=== PATIENT | female | born 1950 | race Caucasian/White ===

== ENCOUNTER 2020-10-07 10:39 | Outpatient (CLI) | payer MEDICARE, SELFPAY | END 2020-10-07 10:40 | disposition home or self-care (01) | PROVIDERS: PCP Internal Medicine; Visit Provider Otolaryngology | DX: H69.81 Other specified disorders of Eustachian tube, right ear (principal); H93.13 Tinnitus, bilateral; H90.3 Sensorineural hearing loss, bilateral | CPT/HCPCS: 92557; 92567 ==

== ENCOUNTER 2021-02-11 20:40 | Emergency (ER) | payer MEDICARE, SELFPAY ==
--- NOTE | ~2021-02-11 | XR_ITS ---
XR chest 2V DATE: 02/11/2021 21:23 INDICATION: Midsternal chest pain TECHNIQUE: PA and lateral views COMPARISON: None FINDINGS: Borderline heart size. Aortic unfolding. No hilar or mediastinal enlargement. No pulmonary infiltrate or consolidation, pleural effusion or pulmonary vascular congestion or pneumo thorax. 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 Diffuse osteopenia. Degenerative change of the thoracic spine. IMPRESSION: No active pulmonary disease Reviewed, dictated and finalized at location A. IMPRESSION: No active pulmonary disease
[2021-02-11 20:57] VITALS: BP 133/88; PULSE 98; RESP 18; TEMP 37.3; O2SAT 96
--- NOTE | 2021-02-11 21:04 | ECG_ITS ---
Measurements Intervals [place] Rate: 95 P: 27 [place]: 153 QRS: -18 QRSD: 91 T: 76 QT: 354 QTc: 447 Interpretive Statements SINUS RHYTHM POSSIBLE LEFT ATRIAL ENLARGEMENT LOW QRS VOLTAGE IN PRECORDIAL LEADS BORDERLINE R WAVE PROGRESSION, ANTERIOR LEADS BORDERLINE T WAVE ABNORMALITY- LATERAL LEADS BORDERLINE ECG Electronically Signed On 02-12-2021 8:24:46 CDT by Johnathan Tang D.O.
[2021-02-11 21:18] LABS: Basophils Absolute Auto 0.1 K/mm3 (0.0-0.1); Basophils Percent Auto 0.7 % (0.2-1.2); Eosinophils Absolute Auto 0.1 K/mm3 (0-0.3); Eosinophils Percent Auto 0.7 % (0-4.4); Hematocrit 42.4 % (37.0-47.0); Hemoglobin 14.3 g/dL (12.0-15.0); Immature Granulocyte Absolute 0.03 K/mm3 (0.00-0.031); Immature Granulocyte Percent A 0.4 % (0-0.5); Lymphocytes Absolute Auto 0.18 K/mm3 (0.9-3.2); Lymphocytes Percent Auto 2.4 % (18.3-44.2); Mean Corpuscular HGB Conc 33.7 g/dl (32-36); Mean Corpuscular Hemoglobin 29.7 pg (26-34); Mean Corpuscular Volume 88.1 fl (80-100); Mean Platelet Volume 8.6 fl (7.4-10.4); Monocytes Absolute Auto 0.4 K/mm3 (0.1-0.6); Monocytes Percent Auto 5.3 % (2.6-8.5); Neutrophils Absolute Auto 6.7 K/mm3 (1.3-6.7); Neutrophils Percent Auto 90.5 % (45.5-73.1); Platelet Count Result 246 k/mm3 (150-375); Red Blood Count 4.81 M/mm3 (4.2-5.4); White Blood Count 7.4 K/mm3 (4.5-10.0)
[2021-02-11 21:27] LABS: Anion Gap 5 mmol/L (8-16); Blood Urea Nitrogen 11 mg/dL (7-17); Calcium 9.5 mg/dL (8.4-10.2); Carbon Dioxide 30 mmol/L (22-30); Chloride 104 mmol/L (98-107); Estimated CRCL calculation 72 ml/min; Estimated Glomerular Filt Rate > 60; Glucose 119 mg/dL (65-105); Potassium 3.6 mmol/L (3.4-5.0); Sodium 139 mmol/L (137-145)
[2021-02-11 21:28] LABS: Prothrombin Time 13.3 Seconds (11.1-14.7)
[2021-02-11 21:29] LABS: Partial Thromboplastin Time 30.2 SECONDS (22.3-36.8)
[2021-02-11 21:40] LABS: Add Urine Microscopic? NO; Appearance Urine Clear (Clear); Bilirubin Urine Negative (Negative); Blood Urine Negative (Negative); Color Urine Yellow (Yellow); Glucose Urine UA Negative (Negative); Ketones Urine Negative (Negative); Leukocyte Esterase Ur Negative LEU/UL (Negative); Nitrate Urine Negative (Negative); Protein Urine Negative (Negative); Urobilinogen Urine Negative mg/dL (<2.0)
[2021-02-11 21:40] LABS: Troponin I < 0.012 ng/mL (0.000-0.034)
--- NOTE | 2021-02-11 23:02 | ED.GENADULT ---
HPI - General Adult General Chief complaint: Urogenital-Female Stated complaint: joint pain, uti Time Seen by Provider: 02/11/21 22:42 History of Present Illness HPI narrative: Patient is a 70-year-old female who presents to the emergency department with chief complaint of body aches and urinary discomfort. Patient reports that she started having some dysuria the last few days started taking an [id number] medication and called her primary care physician who started her on an oral antibiotic. Patient states that she still has some dysuria and reports that she also had some epigastric discomfort that radiated up into her chest patient states this started earlier this 3 to 4 hours. Patient states she does have the sensation sometimes. Patient states that her daughter came over and noticed that her heart rate was running at about 100. The patient went to urgent care they noticed that her heart rate was 100 and decided to send the patient to the emergency department for evaluation. Patient reports that she has been vaccinated for Covid-19 and completed her series back in November Related Data Home Medications Medication Instructions Recorded Confirmed calcium carbonate 200 mg calcium 200 mg PO BID 06/03/20 (500 mg) chewable tablet cholecalciferol (vitamin D3) 10 10 mcg PO DAILY 06/03/20 mcg (400 unit) capsule fluticasone propionate 50 1 spray NASAL DAILY 06/03/20 mcg/actuation nasal spray,suspension montelukast 10 mg tablet 10 mg PO DAILY 06/03/20 multivitamin 1 tablet PO DAILY 06/03/20 Allergies Allergy/AdvReac Type Severity Reaction Status Date / Time No Known Allergies Allergy Verified 10/10/20 13:58 Review of Systems Review of Systems: Narrative: A 10 system review of systems was completed on the patient and is negative except for what is stated in the HPI. Nursing and ancillary documentation was reviewed. [facility] Past Medical History Medical History Vertigo Social History Social History Smoking status: Never smoker Alcohol intake: never Substance use: never Exam Narrative: Exam Narrative: GENERAL: Well-appearing, well-nourished, and in no acute distress. HEAD: Normocephalic, atraumatic. EYES: PERRLA and EOMI. ENT: Nares clear, no rhinorrhea or epistaxis. Mucous membranes moist. NECK: Supple. CHEST: Clear to auscultation. No respiratory distress. HEART: Regular rate and rhythm. No murmur heard. Normal peripheral pulses. ABDOMEN: Soft, nontender, nondistended, normal active bowel sounds. EXTREMITIES: Normal range of motion. No edema. SKIN: Warm, dry, no rash. NEURO: No focal deficits. Alert and oriented x3. PSYCH: Normal mood and affect. Course Vital Signs Vital signs: Vital Signs Temperature 37.3 C 02/11/21 20:57 Pulse Rate 98 02/11/21 20:57 Respiratory Rate 18 02/11/21 20:57 Blood Pressure 133/88 02/11/21 20:57 Pulse Oximetry 96 02/11/21 20:57 Temperature 37.3 C 02/11/21 20:57 Pulse Rate 92 02/11/21 23:35 Respiratory Rate 18 02/11/21 23:35 Blood Pressure 149/75 H 02/11/21 23:35 Pulse Oximetry 96 02/11/21 23:35 Medical Decision Making Vital Signs Vital Signs: Vital Signs Temperature 37.3 C 02/11/21 20:57 Pulse Rate 98 02/11/21 20:57 Respiratory Rate 18 02/11/21 20:57 Blood Pressure 133/88 02/11/21 20:57 Pulse Oximetry 96 02/11/21 20:57 Temperature 37.3 C 02/11/21 20:57 Pulse Rate 92 02/11/21 23:35 Respiratory Rate 18 02/11/21 23:35 Blood Pressure 149/75 H 02/11/21 23:35 Pulse Oximetry 96 02/11/21 23:35 Lab Data Result diagrams: 02/11/21 21:12 02/11/21 21:12 Labs: Lab Results 02/11/21 02/11/21 02/11/21 Range/Units 21:12 21:12 21:12 WBC 7.4 (4.5-10.0) K/mm3 RBC 4.81 (4.2-5.4) M/mm3 Hgb 14.3 (12.0-15.0) g/dL Hc
[2021-02-11 23:35] VITALS: BP 149/75; PULSE 92; PULSE 95; RESP 18; RESP 25; O2SAT 96
[2021-02-11 23:37] VITALS: BP 149/75; PULSE 92; RESP 24; O2SAT 97
[2021-02-11 23:51] VITALS: PULSE 92; RESP 23; O2SAT 97
[2021-02-12] VITALS: PULSE 97; RESP 15; O2SAT 97
[2021-02-12 00:01] VITALS: BP 140/84; PULSE 96; RESP 9; O2SAT 96
== END 2021-02-12 00:25 | disposition home or self-care (01) ==
PROVIDERS: Emergency Medicine; Emergency Provider Emergency Medicine; PCP Internal Medicine
DX: R30.0 Dysuria (principal); M25.50 Pain in unspecified joint; R94.31 Abnormal electrocardiogram [ECG] [EKG]; R10.13 Epigastric pain
CPT/HCPCS: 36415; 71046; 80048; 81003; 84484; 85025; 85610; 85730; 93005; 99283

== ENCOUNTER 2021-12-05 01:20 | Day surgery (SDC) | payer MEDICARE, SELFPAY ==
[2021-12-03 12:02] VITALS: BMI 33.8
--- NOTE | 2021-12-04 15:44 | P.PNAN_ITS ---
Anes - Eval Pre Procedure Procedure: Operation Date: 12/05/21 08:00 Proposed Procedures p Esophagogastroduodenoscopy - Edmond Madrid MD Date/Time: 12/04/21 15:44 Pre Op Diagnosis: dysphagia Patient Data Age: 71 Gender: F Height: 1.63 m Weight: 89.5 kg Allergies Allergy/AdvReac Type Severity Reaction Status Date / Time No Known Allergies Allergy Verified 12/03/21 11:59 Home Medications Medication Instructions Recorded Confirmed Type cholecalciferol (vitamin D3) 10 10 mcg PO DAILY 06/03/20 12/03/21 History mcg (400 unit) capsule fluticasone propionate 50 1 spray NASAL DAILY 06/03/20 12/03/21 History mcg/actuation nasal spray,suspension montelukast 10 mg tablet 10 mg PO DAILY 06/03/20 12/03/21 History multivitamin 1 tablet PO DAILY 06/03/20 12/03/21 History Patient hx anesthesia problems: none Family hx anesthesia problems: none Results Review: All pre-operative results and documents have been reviewed as part of the pre-operative evaluation. [facility] Past Medical History Medical History Arthritis Vertigo Surgical History Surgical History (Updated 12/04/21 @ 15:44 by Marian Montesinos CRNA) H/O section H/O: hysterectomy Social History Social History Smoking status: Former smoker Alcohol intake: current Drinks per week: 3 Substance use: never Substance use type: does not use Living arrangements: with family Spiritual care concerns: No Exam Day of Procedure 12/04/21 15:44
--- NOTE | 2021-12-04 16:02 | PM.HPGS ---
History of Present Illness History of Present Illness Consent: Risks, benefits, and alternatives have been discussed and questions answered. Patient agrees to proceed with procedure. Chief complaint: dysphagia Narrative: Aminata Angela is a 71 year old female was been having dysphagia for solid and pills. She will sometimes regurgitate them back up. 2 weeks ago she burped and brought up much of what she had just eaten. She saw an Ear Nose Throat physician who did not see anything structurally abnormal. He had her take a 10 day course of omeprazole , but she said that she could not think that she could swallow it so she did not try to take it. Once when eating a sandwich and that again this week when eating a muffin he felt as if it lodged under the sternum and 5 past sometime later. She denies chronic acid reflux. She has not had dysphagia in the past. She also has a constant feeling of something in her throat as though there is a water of something or a piece of paper. Review of Systems Review of Systems: All systems reviewed & are unremarkable except as noted in HPI and below PMFSH Past Medical History Medical History Arthritis Vertigo Surgical History Surgical History H/O section H/O: hysterectomy Social History Social History Smoking status: Former smoker Alcohol intake: current Drinks per week: 3 Substance use: never Substance use type: does not use Living arrangements: with family Spiritual care concerns: No Meds Home Medications and Allergies Home Medications Medication Instructions Recorded Confirmed Type cholecalciferol (vitamin D3) 10 10 mcg PO DAILY 06/03/20 12/03/21 History mcg (400 unit) capsule fluticasone propionate 50 1 spray NASAL DAILY 06/03/20 12/03/21 History mcg/actuation nasal spray,suspension montelukast 10 mg tablet 10 mg PO DAILY 06/03/20 12/03/21 History multivitamin 1 tablet PO DAILY 06/03/20 12/03/21 History Allergies Allergy/AdvReac Type Severity Reaction Status Date / Time No Known Allergies Allergy Verified 12/05/21 06:44 Exam Const: General: alert Orientation/consciousness: patient oriented x3 Resp: Auscultation: clear to auscultation bilaterally Cardio: Rhythm: regular rhythm GI: GI Palp: Yes Soft to palpation and No Tenderness to palpation present (GI) Neuro: General: patient oriented x3 Assessment and Plan Assessment and plan (1) Dysphagia: Code(s): R13.10 - Dysphagia, unspecified Status: Acute Assessment and Plan: EGD with possible biopsy or dilatation or cautery.
[2021-12-05 06:25] VITALS: BP 166/86; PULSE 90; RESP 18; TEMP 37.5; O2SAT 99; BMI 33.7
--- NOTE | 2021-12-05 07:09 | WPDANESEFPP ---
Anes - Eval Final PreProcedure Day of Procedure 12/05/21 07:09 Patient weight: obese Heart: regular rate and rhythm Lungs: clear to auscultation Airway: Mallampati scale class II Neurological: alert and oriented Last oral intake: >/= 8 hours ASA classification: II Emergent: no Anesthetic plan: proceed Anesthesia type and monitoring: general GIVS and standard monitoring Results Review: All pre-operative results and documents have been reviewed as part of the pre-operative evaluation. Informed Consent: The patient's anesthetic plan and its attendant risks and benefits were discussed with the patient/family/POA. Questions were solicited and answers provided to the satisfaction of the patient/family/POA.
[2021-12-05] MEDS: LACTATED RINGERS 1,000 ML 150 ML IV CONT (07:13)
[2021-12-05] MEDS: BENZOCAINE (*SP) 60 ML SPRAY CAN (HURRICAINE) 1 SPRAY MUCOUS MEM (08:21)
[2021-12-05 08:32] VITALS: BP 140/73; PULSE 86; RESP 29; O2SAT 92
[2021-12-05 08:42] VITALS: BP 126/66; PULSE 80; RESP 23; O2SAT 98
[2021-12-05 08:52] VITALS: BP 132/84; PULSE 80; RESP 22; O2SAT 98
== END 2021-12-05 09:04 | disposition home or self-care (01) ==
PROVIDERS: PCP Internal Medicine; Visit Provider Internal Medicine Gastroenterology
PROC: 0DJ08ZZ Inspection of Upper Intestinal Tract, Via Natural or Artificial Opening Endoscopic (ICD-10-PCS; CPT 43235; principal; 2021-12-05 08:00)
DX: K22.2 Esophageal obstruction (principal); Z87.891 Personal history of nicotine dependence; E66.9 Obesity, unspecified; Z68.33 Body mass index [BMI] 33.0-33.9, adult
CPT/HCPCS: 43239; 43249; 87081; 88305; C1726; J2704; J7120

== ENCOUNTER 2022-01-07 08:48 | Outpatient (CLI) | payer MEDICARE, SELFPAY ==
--- NOTE | ~2022-01-07 | US_ITS ---
EXAMINATION: US FNA w image guidance DATE: 01/07/2022 09:40 INDICATION: Right thyroid nodule. TECHNIQUE: The procedure and its benefits and risks were discussed with the patient. Risks specifically discusse d included bleeding. The patient verbalized understanding of the risks and agreed to proceed. The nec k was prepped and draped in the usual sterile manner. 1% lidocaine was used for local anesthesia. 6 passes were made with a 25G needle into the lesion under ultrasound guidance. There were no immedia te complications. FINDINGS: Grayscale ultrasound images demonstrate needles advanced into a 2.7 cm nodule in right thyroid lobe f or biopsy. IMPRESSION: 1. Ultrasound-guided fine needle aspiration of a right thyroid nodule. Reviewed, dictated and finalized at location A. SPRAYER
== END 2022-01-07 08:49 | disposition home or self-care (01) ==
PROVIDERS: PCP Internal Medicine; Visit Provider Internal Medicine
DX: E04.1 Nontoxic single thyroid nodule (principal)
CPT/HCPCS: 10005; 88173; 88305

== ENCOUNTER 2022-02-06 12:01 | Outpatient (RCR) | payer MEDICARE, SELFPAY ==
--- NOTE | 2022-02-06 16:12 | STOPEVAL ---
Thank you for referring Aminata Angela to [facility].? The patient was seen for a Speech Therapy evaluation only after being provided with safe swallowing techniques and general gastroesophageal reflux guidelines. I agree with and certify that the following plan of care is medically necessary. Referring Physician Date Attending Provider: Jc Ledesma, Referring Provider: Jc Ledesma, Therapy Assessment Status Assessment Status Assessment Status Evaluation Outpatient Past Medical History Past Medical History Source of Past Medical History Patient Neurological History Hx Neurological Disorders No Significant History Cardiovascular History Hx Cardiac Disorders No Significant History Respiratory History Hx Respiratory Disorders No Significant History Gastrointestinal History Hx Gastroesophageal Reflux Disease Yes: 12/23 Genitourinary History Hx Genitourinary Disorders No Significant History Musculoskeletal History Hx Arthritis Yes Hematological History Hx Hematological Disorders No Significant History Endocrine History Hx Endocrine Disorders No Significant History HEENT History Hx Cataracts Yes Hx Eye Surgery Yes: cataracts removed Integumentary History Hx Skin Disorders No Significant History Reproductive History Hx Section Yes Hx Fibroids Yes Psychosocial History Hx Psychiatric Disorders No Significant History Pain History History of Any Previous or Ongoing No Significant History Instance of Pain Anesthesia History Hx Anesthesia Reactions No Significant History Pain Assessment Timing of Pain Assessment Timing of Pain Assessment Assessment Self Report Self Report Pain Level 0 Pain Score Pain Score 0: Self Report Bedside Swallow Evaluation Consistency Solid Consistency Other Swallow Amount very small pieces of broken-up breakfast bar Method of Presentation Spoon Behaviors Observed Apparently Normal Swallow Occurrence of Coughing None Vocal Quality After Swallowing Clear Swallow Palpation Results Strong Laryngeal Elevation, Delayed Triggering Solid Consistency 5 mL Method of Presentation Spoon Behaviors Observed Apparently Normal Swallow Occurrence of Coughing None Vocal Quality After Swallowing Clear Swallow Palpation Results Strong Laryngeal Elevation, Delayed Triggering Pureed Consistency 3 mL Behaviors Observed Apparently Normal Swallow Occurrence of Coughing None Vocal Quality After Swallowing Clear Swallow Palpation Results Strong Laryngeal Elevation, Delayed Triggering Pureed Consistency 5 mL
== END 2022-04-24 13:02 | disposition home or self-care (01) ==
LOC: ANHST 12:01
PROVIDERS: PCP Internal Medicine; Referring Provider Internal Medicine; Visit Provider Internal Medicine
DX: K22.89 Other specified disease of esophagus (principal)
CPT/HCPCS: 92610

== ENCOUNTER 2022-07-22 09:26 | Emergency (ER) | payer MEDICARE, SELFPAY ==
--- NOTE | ~2022-07-22 | XR_ITS ---
XR chest 2V DATE: 07/22/2022 10:02 INDICATION: Chest pain TECHNIQUE: PA and lateral views COMPARISON: 02/11/2021 2 view chest FINDINGS: Heart size appears within normal limits. There is mild aortic unfolding. No hilar or medias tinal enlargement. No pulmonary infiltrate or consolidation, pleural effusion or pulmonary vascular congestion or pneumo thorax is detected. Diffuse osteopenia. Thoracic scoliosis and degenerative change. Severe osteoarthritic change at the glenohumeral joints and bilateral shoulder calcifications. IMPRESSION: No active cardiopulmonary disease or significant change since 02/11/2021 Reviewed, dictated and finalized at location B. IMPRESSION: No active cardiopulmonary disease or significant change since 2020
--- NOTE | ~2022-07-22 | US_ITS ---
US abdomen limited INDICATION: Right upper quadrant abdominal pain PROCEDURE: Realtime right upper abdominal ultrasound. COMPARISON: No prior studies for comparison. FINDINGS: The pancreas is normal without focal mass or pancreatic ductal dilation. Liver echotexture is normal without focal mass or intrahepatic biliary dilatation. There is an 11 mm liver cyst. There is normal directional flow in the portal vein. Gallbladder contains sludge. No gallbladder wall thickening or pericholecystic fluid. Common bile du ct measures 3 mm mm. No sonographic García's sign. IMPRESSION: 1: Gallbladder sludge. 2: Liver cyst measuring 11 mm. Reviewed, dictated and finalized at location A.
--- NOTE | 2022-07-22 09:37 | ECG_ITS ---
Measurements Intervals [place] Rate: 66 P: 28 [place]: 152 QRS: -7 QRSD: 95 T: 95 QT: 416 QTc: 438 Interpretive Statements SINUS RHYTHM POSSIBLE LEFT ATRIAL ENLARGEMENT BORDERLINE R WAVE PROGRESSION, ANTERIOR LEADS BORDERLINE T WAVE ABNORMALITY- ANTEROLAT/HIGH LAT LEADS BASELINE ARTIFACT- I, II, III, V6 BORDERLINE ECG COMPARED TO ECG 02/11/2021 21:03:58 NO SIGNIFICANT CHANGES Electronically Signed On 07-22-2022 12:02:11 CDT by Johnathan Tang D.O.
[2022-07-22 09:49] VITALS: BP 142/80; PULSE 69; RESP 19; TEMP 36.7; O2SAT 96
--- NOTE | 2022-07-22 09:50 | ED.GENADULT ---
HPI - General Adult General Chief complaint: Chest Pain Stated complaint: back pain, r/o cardiac, from PCP Time Seen by Provider: 07/22/22 09:31 Source: RN notes reviewed History of Present Illness HPI narrative: Patient presents emergency department from home for chest and back pain. Patient states she woke from sleep this morning at 4 AM with pain in her midsternal chest going into her back between her shoulder blades patient states the pain was described as a burning in nature and at that time she took her antacid with improvement of her pain states she has had 2 similar episodes this week currently she denies any pain at this time she denies any fevers or chills abdominal pain nausea or vomiting or any other symptoms Related Data Home Medications Medication Instructions Recorded Confirmed cholecalciferol (vitamin D3) 10 10 mcg PO DAILY 06/03/20 12/03/21 mcg (400 unit) capsule fluticasone propionate 50 1 spray intranasal DAILY 06/03/20 12/03/21 mcg/actuation nasal spray,suspension (Flonase Allergy Relief) montelukast 10 mg tablet 10 mg PO DAILY 06/03/20 12/03/21 (Singulair) multivitamin (Daily Multi-Vitamin 1 tablet PO DAILY 06/03/20 12/03/21 tablet) Allergies Allergy/AdvReac Type Severity Reaction Status Date / Time No Known Allergies Allergy Verified 07/22/22 09:53 Review of Systems Review of Systems: Gen.: Denies fevers or chills ENT: Denies congestion Respiratory: Denies shortness of breath or cough CV: HPI GI: Denies abdominal pain nausea, emesis or diarrhea Musculoskeletal: Denies back pain or muscle pain Neuro: Denies numbness, tingling, weakness or focal weakness Skin: Denies rash Except as documented, all other systems reviewed and negative [facility] Past Medical History Medical History Arthritis Vertigo Surgical History Surgical History H/O section H/O: hysterectomy Social History Social History Smoking status: Former smoker Alcohol intake: current Drinks per week: 3 Substance use: never Substance use type: does not use Spiritual care concerns: No Exam Narrative: APPEARANCE: No acute distress, nontoxic, resting in bed EYES: EOMI HEENT: Normocephalic, atraumatic, OMM RESPIRATORY: No respiratory distress Clear to auscultation bilaterally with no rhonchi wheezing or rales. CARDIOVASCULAR: Regular rate and rhythm without murmurs rubs or gallops. ABDOMINAL: Soft, nontender, nondistended, no rebound or guarding MUSCULOSKELETAl: Moves all extremities. No clubbing, cyanosis or edema. NEURO: Awake and alert. Following commands, speech normal, no focal deficits SKIN:: Warm, dry. No rashes lesions or abrasions PSYCHIATRIC: Normal affect/mood, Course Course Emergency Course: Discussed with cardiology Dr. Alston presentation work-up agrees with plan for discharge and follow-up as an outpatient Discussed with Dr. Ledesma agrees with discharge Discussed with patient results of workup and diagnosis. Discussed need for follow-up with primary care, proper use of medication, and reasons to return to the emergency department. Patient understands and agrees to current treatment plan Vital Signs Vital signs: Vital Signs Temperature 98.0 F 07/22/22 09:49 Pulse Rate 69 07/22/22 09:49 Respiratory Rate 19 07/22/22 09:49 Blood Pressure 142/80 H 07/22/22 09:49 Pulse Oximetry 96 07/22/22 09:49 Oxygen Delivery Room Air 07/22/22 09:49 Temperature 98.0 F 07/22/22 09:49 Pulse Rate 74 07/22/22 12:18 Respiratory Rate 17 07/22/22 12:18 Blood Pressure 152/80 H 07/22/22 12:18 Pulse Oximetry 100 07/22/22 12:18 Oxygen Delivery Room Air 07/22/22 09:49 Medical Decision Making Differential Diagnosis Differential Diagnosis: Patient's EKGs and labs are without significant hi
[2022-07-22 09:52] VITALS: PULSE 69
--- NOTE | 2022-07-22 09:53 | PC.NURSE ---
Pt to XRAY via stretcher at this time.
[2022-07-22 10:09] LABS: Basophils Absolute Auto 0.1 K/mm3 (0.0-0.1); Basophils Percent Auto 1.3 % (0.2-1.2); Eosinophils Absolute Auto 0.1 K/mm3 (0-0.3); Eosinophils Percent Auto 2.4 % (0-4.4); Hematocrit 42.1 % (37.0-47.0); Hemoglobin 13.6 g/dL (12.0-15.0); Immature Granulocyte Absolute 0.01 K/mm3 (0.00-0.031); Immature Granulocyte Percent A 0.2 % (0-0.5); Lymphocytes Absolute Auto 1.32 K/mm3 (0.9-3.2); Lymphocytes Percent Auto 28.4 % (18.3-44.2); Mean Corpuscular HGB Conc 32.3 g/dl (32-36); Mean Corpuscular Hemoglobin 29.8 pg (26-34); Mean Corpuscular Volume 92.3 fl (80-100); Monocytes Absolute Auto 0.4 K/mm3 (0.1-0.6); Monocytes Percent Auto 7.5 % (2.6-8.5); Neutrophils Absolute Auto 2.8 K/mm3 (1.3-6.7); Neutrophils Percent Auto 60.2 % (45.5-73.1); Platelet Count Result 268 k/mm3 (150-375); Red Blood Count 4.56 M/mm3 (4.2-5.4); Red Cell Distribution Width 13.5 % (11.5-14.5); White Blood Count 4.6 K/mm3 (4.5-10.0)
[2022-07-22 10:18] LABS: Alanine Aminotransferase 12 U/L (6-35); Alkaline Phosphatase 60 U/L (38-126); Anion Gap 11 mmol/L (8-16); Aspartate Amino Transferase 26 U/L (14-36); Bilirubin,Total 0.4 mg/dL (0.2-1.3); Blood Urea Nitrogen 5 mg/dL (7-17); Calcium 9.2 mg/dL (8.4-10.2); Carbon Dioxide 33 mmol/L (22-30); Chloride 98 mmol/L (98-107); Estimated CRCL calculation 47 ml/min; Estimated Glomerular Filt Rate > 60; Glucose 86 mg/dL (65-110); Lipase 71 U/L (23-300); Partial Thromboplastin Time 33.7 SECONDS (22.3-36.8); Sodium 142 mmol/L (137-145)
[2022-07-22 10:30] LABS: Troponin I < 0.012 ng/mL (0.000-0.034)
[2022-07-22] MEDS: POTASSIUM CHLORIDE 20 MEQ TABLET 40 MEQ PO (10:56)
[2022-07-22 10:57] VITALS: BP 165/85; PULSE 77; RESP 15; O2SAT 100
[2022-07-22] MEDS: POTASSIUM CHLORIDE 10 MEQ TABLET (11:00)
[2022-07-22 12:18] VITALS: BP 152/80; PULSE 74; RESP 17; O2SAT 100
[2022-07-22 12:24] LABS: Troponin I < 0.012 ng/mL (0.000-0.034)
== END 2022-07-22 13:40 | disposition home or self-care (01) ==
PROVIDERS: Emergency Provider Emergency Medicine; PCP Internal Medicine
DX: K82.9 Disease of gallbladder, unspecified (principal); R07.89 Other chest pain; Z87.891 Personal history of nicotine dependence
CPT/HCPCS: 36415; 71046; 76705; 80053; 83690; 84484; 85025; 85610; 85730; 93005; 99284; A9270

== ENCOUNTER 2022-11-19 13:41 | Outpatient (CLI) | payer MEDICARE, SELFPAY ==
--- NOTE | 2022-11-19 | ECG_ITS ---
Measurements Intervals [place] Rate: 64 P: 76 [place]: 146 QRS: 46 QRSD: 100 T: 63 QT: 430 QTc: 444 Interpretive Statements SINUS RHYTHM DELAYED PRECORDIAL R/S TRANSITION LOW QRS VOLTAGE IN LIMB LEADS BORDERLINE ST-T WAVE ABNORMALITY- INF/HIGH LAT LEADS BASELINE ARTIFACT- I, II, III, AVL BORDERLINE ECG COMPARED TO ECG 07/22/2022 09:47:56 NO SIGNIFICANT CHANGES Electronically Signed On 11-19-2022 14:41:29 [employer] by Johnathan Tang D.O.
[2022-11-19 15:44] LABS: Alanine Aminotransferase 20 U/L (6-35); Alkaline Phosphatase 50 U/L (38-126); Anion Gap 5 mmol/L (8-16); Aspartate Amino Transferase 27 U/L (14-36); Bilirubin,Total 0.5 mg/dL (0.2-1.3); Blood Urea Nitrogen 13 mg/dL (7-17); Carbon Dioxide 34 mmol/L (22-30); Chloride 96 mmol/L (98-107); Estimated Glomerular Filt Rate > 60; Glucose 79 mg/dL (65-110); Potassium 3.9 mmol/L (3.4-5.0); Sodium 135 mmol/L (137-145)
[2022-11-23 10:53] LABS: NIL 0.02 IU/mL; Quantiferon TB Plus, 1T NEGATIVE (NEGATIVE)
== END 2022-11-19 13:42 | disposition home or self-care (01) ==
LOC: ANHLAB 13:47
PROVIDERS: PCP Internal Medicine; Visit Provider Internal Medicine
DX: E46 Unspecified protein-calorie malnutrition (principal); R94.31 Abnormal electrocardiogram [ECG] [EKG]
CPT/HCPCS: 36415; 80053; 86480; 93005

== ENCOUNTER 2023-06-22 13:50 | Emergency (ER) | payer MEDICARE, SELFPAY ==
--- NOTE | ~2023-06-22 | XR_ITS ---
XR chest 2V 06/22/2023 14:26 Indication: Acid reflux. Procedure: 2 view chest Comparison: 07/22/2022 Findings: Heart size normal. No focal air space disease, pulmonary edema, pleural effusion or suspect ed pneumothorax. There is chronic osteoarthritis of the right shoulder with adjacent loose bodies. Mi ld thoracic spondylosis. Impression: 1: No acute cardiopulmonary disease. Reviewed, dictated and finalized at location L. Impression: 1: No acute cardiopulmonary disease.
[2023-06-22 13:55] VITALS: BP 132/71; PULSE 70; RESP 20; TEMP 37.1; O2SAT 97
--- NOTE | 2023-06-22 13:58 | ECG_ITS ---
Measurements Intervals [place] Rate: 70 P: 48 [place]: [id number] QRS: -1 QRSD: 90 T: 86 QT: 394 QTc: 426 Interpretive Statements SINUS RHYTHM LOW QRS VOLTAGE IN PRECORDIAL LEADS [QRS DEFLECTION < 1.0 mV IN CHEST LEADS] POSSIBLE ANTERIOR MYOCARDIAL INFARCTION , OF INDETERMINATE AGE [30 ms Q WAVE IN V3/V4, OR R < 0.2 mV IN V4] MODERATE T-WAVE ABNORMALITY, CONSIDER LATERAL ISCHEMIA [-0.1+ mV T WAVE IN I/aVL/V5/V6] COMPARED TO ECG 11/19/2022 14:23:36 NO SIGNIFICANT CHANGES Electronically Signed On 06-23-2023 11:30:41 CDT by Jose E Alston M.D.
[2023-06-22 14:22] LABS: Basophils Percent Auto 0.8 % (0.2-1.2); Eosinophils Absolute Auto 0.1 K/mm3 (0-0.3); Eosinophils Percent Auto 2.5 % (0-4.4); Hematocrit 34.6 % (37.0-47.0); Hemoglobin 11.4 g/dL (12.0-15.0); Immature Granulocyte Absolute 0.01 K/mm3 (0.00-0.031); Immature Granulocyte Percent A 0.2 % (0-0.5); Lymphocytes Absolute Auto 1.03 K/mm3 (0.9-3.2); Lymphocytes Percent Auto 20.2 % (18.3-44.2); Mean Corpuscular HGB Conc 32.9 g/dl (32-36); Mean Corpuscular Hemoglobin 31.8 pg (26-34); Mean Corpuscular Volume 96.4 fl (80-100); Mean Platelet Volume 8.9 fl (7.4-10.4); Monocytes Absolute Auto 0.4 K/mm3 (0.1-0.6); Monocytes Percent Auto 8.2 % (2.6-8.5); Neutrophils Absolute Auto 3.5 K/mm3 (1.3-6.7); Neutrophils Percent Auto 68.1 % (45.5-73.1); Platelet Count Result 227 k/mm3 (150-375); Red Blood Count 3.59 M/mm3 (4.2-5.4); Red Cell Distribution Width 12.9 % (11.5-14.5); White Blood Count 5.1 K/mm3 (4.5-10.0)
[2023-06-22 14:32] LABS: Alanine Aminotransferase 20 U/L (6-35); Albumin Level 4.2 g/dL (3.5-5.1); Alkaline Phosphatase 70 U/L (38-126); Anion Gap 5 mmol/L (8-16); Aspartate Amino Transferase 28 U/L (14-36); Bilirubin,Total 0.2 mg/dL (0.2-1.3); Blood Urea Nitrogen 18 mg/dL (7-17); Calcium 8.7 mg/dL (8.4-10.2); Carbon Dioxide 35 mmol/L (22-30); Chloride 98 mmol/L (98-107); Estimated CRCL calculation 66 ml/min; Estimated Glomerular Filt Rate > 60; Glucose 109 mg/dL (65-110); Lipase 73 U/L (23-300); Prothrombin Time 13.8 Seconds (11.1-14.7); Sodium 138 mmol/L (137-145)
[2023-06-22 14:33] LABS: Partial Thromboplastin Time 30.8 SECONDS (22.3-36.8)
[2023-06-22 14:42] LABS: Troponin I < 0.012 ng/mL (0.000-0.034)
== END 2023-06-22 17:17 | disposition left against medical advice (07) ==
LOC: ANHED 17:24
PROVIDERS: Emergency Provider Emergency Medicine; PCP Internal Medicine
DX: K21.9 Gastro-esophageal reflux disease without esophagitis (principal); R94.31 Abnormal electrocardiogram [ECG] [EKG]
CPT/HCPCS: 36415; 71046; 80053; 83690; 84484; 85025; 85610; 85730; 93005; 99199

== ENCOUNTER 2023-08-27 12:02 | Emergency (ER) | payer MEDICARE, SELFPAY ==
--- NOTE | ~2023-08-27 | CT_ITS ---
EXAMINATION: CT facial bones wo con DATE: 08/27/2023 14:37 INDICATION: Nasal and mandibular injury TECHNIQUE: Computed tomography (CT) of the facial bones was performed without intravenous contrast. T he dose-length product was 292.12 mGy-cm. Automated exposure control and iterative reconstruction sarah hnique were employed. COMPARISON: None FINDINGS: There is an ossific density just lateral to the right temporal mandibular joint, consistent with age-indeterminate avulsion fracture of uncertain origin. This may relate to degenerative change or prior trauma. Zygomatic arches are intact. No nasal fracture is seen. Orbits are symmetric. Kamaljit a papyracea is intact bilaterally. Paranasal sinuses and mastoids are pneumatized. IMPRESSION: 1. Small ossific density lateral to the right temporomandibular joint consistent with age-indetermina te avulsion fracture. Correlate for point tenderness. Reviewed, dictated and finalized at location B. IMPRESSION: 1. Small ossific density lateral to the right temporomandibular joint consisten t with age-indeterminate avulsion fracture. Correlate for point tenderness.
[2023-08-27 12:10] VITALS: BP 128/69; PULSE 71; RESP 18; TEMP 36.8; O2SAT 97
--- NOTE | 2023-08-27 15:05 | ED.FALL ---
HPI - Fall General Chief Complaint: Fall Stated Complaint: fall, hit face Time Seen by Provider: 08/27/23 13:26 History of Present Illness HPI Narrative: Patient is a 73-year-old female who presents to the ER with concerns for bruising over her nose and swelling under her right mandible. Patient had a trip and fall when getting out of bed 3 days ago. Did not develop bruising until today. Developed some induration under her right jaw today as well. Has no pain in her jaw and has no dental pain. No difficulty breathing or swallowing. She has no headache or change in vision or change in hearing. She is not on blood thinners. She has no difficulty breathing through her nose. Patient does have a PEG tube due to weight loss and difficulty eating. Related Data Home Medications Medication Instructions Recorded Confirmed cholecalciferol (vitamin D3) 10 10 mcg PO DAILY 06/03/20 12/03/21 mcg (400 unit) capsule fluticasone propionate 50 1 spray intranasal DAILY 06/03/20 12/03/21 mcg/actuation nasal spray,suspension (Flonase Allergy Relief) multivitamin (Daily Multi-Vitamin 1 tablet PO DAILY 06/03/20 12/03/21 tablet) alprazolam 0.5 mg tablet 0.5 mg PO QHS PRN 09/03/22 escitalopram oxalate 20 mg tablet 20 mg PO DAILY 09/03/22 pantoprazole 20 mg tablet,delayed 20 mg PO QAM 09/03/22 release mirtazapine 15 mg tablet 15 mg PO DAILY 04/20/23 rosuvastatin 5 mg tablet 5 mg PO DAILY 07/27/23 Allergies Allergy/AdvReac Type Severity Reaction Status Date / Time No Known Allergies Allergy Verified 08/27/23 13:25 Review of Systems Review of Systems: All systems reviewed & are unremarkable except as noted in HPI and below Constitutional: Constitutional: Denies chills, Denies fatigue and Denies fever(s) Eyes: Eyes: Denies change in vision ENT: Denies nasal congestion and Denies sore throat Comments: nasal bruising, jaw swelling Neurologic: Reports system reviewed and no additional complaints, except as documented PMFSH Past Medical History Medical History Arthritis Vertigo Surgical History Surgical History H/O section H/O: hysterectomy Social History Social History Smoking status: Former smoker Alcohol intake: current Drinks per week: 3 Substance use: never Substance use type: does not use Lack of Transportation: No Lack of Food: Never True Current Housing: I Have Housing Concerned About Future Housing: Decline to Answer Difficulty Paying Gas/Electric Bills: Decline to Answer Difficulty Paying for Meds: Decline to Answer Currently Unemployed: Decline to Answer Education: Master's Degree or Higher Difficulty w/ Childcare or Family Care: No Living arrangements: with family Spiritual care concerns: No Exam Narrative: GENERAL: Well-appearing, well-nourished, and in no acute distress. HEAD: Normocephalic, atraumatic. ENT: Mucous membranes moist. Yellow bruising over nasal bridge. Skin beneath the right mandible and mental region indurated without tenderness or erythema. No intraoral abscess of the dentition or dental pain. NECK: Supple. EXTREMITIES: Normal range of motion. No edema. NEURO: Alert and oriented x3. PSYCH: Normal mood and affect. Course Course Emergency Course: Patient resting comfortably. Her and her informed results. Discharge home. No evidence of dental abscess. Discussed return precautions and they verbalized understanding. Vital Signs Vital signs: Vital Signs Temperature 98.3 F 08/27/23 12:10 Pulse Rate 71 08/27/23 12:10 Respiratory Rate 18 08/27/23 12:10 Blood Pressure 128/69 08/27/23 12:10 Pulse Oximetry 97 08/27/23 12:10 Oxygen Delivery Room Air 08/27/23 12:10 Temperature 98.3 F 08/27/23 12:10 Pulse Rate 71
== END 2023-08-27 15:35 | disposition home or self-care (01) ==
PROVIDERS: Emergency Provider Emergency Medicine; PCP Internal Medicine
DX: S00.33XA Contusion of nose, initial encounter (principal); Z87.891 Personal history of nicotine dependence; W01.0XXA Fall on same level from slipping, tripping and stumbling without subsequent striking against object, initial encounter
CPT/HCPCS: 70486; 99284

== ENCOUNTER 2023-09-04 11:00 | Observation (INO) | payer MEDICARE, SELFPAY ==
[2023-09-04] VITALS (19 sets, daily range): BP systolic 107–161; BP diastolic 56–77; PULSE 59–78; RESP 11–21; TEMP 35.7–36.6; O2SAT 96–100
--- NOTE | ~2023-09-04 | XR_ITS ---
EXAMINATION: XR chest 2V DATE: 09/04/2023 11:54 INDICATION: Weakness TECHNIQUE: AP and lateral views of the chest are obtained. COMPARISON: 06/22/2023 FINDINGS: The lungs are free of acute opacities. No pleural effusion or pneumothorax. The cardiomedia stinal silhouette is normal. There is severe thoracic spondylosis. There is advanced osteoarthritis o f the shoulders. IMPRESSION: 1. No acute cardiopulmonary abnormality. Reviewed, dictated and finalized at location F.
--- NOTE | ~2023-09-04 | CT_ITS ---
EXAMINATION: CT brain wo con INDICATION: Altered mental status and confusion COMPARISON: None TECHNIQUE: Standard unenhanced head CT. The dose-length product (DLP) was 605.33 mGy-cm. The mA was a djusted according to patient size. Iterative reconstruction technique was employed. FINDINGS: No acute intraparenchymal hemorrhage. No evidence of mass lesion. No evidence of acute infa rction. There is mild periventricular and subcortical hypodensity probably related to small vessel is chemic disease. There is mild prominence of the sulci and ventricles related to cerebral atrophy. Int racranial calcified cerebral atherosclerosis is noted. No extra-axial collections. No mass effect or midline shift. The orbits and soft tissues are unremarkable. The visualized sinuses and mastoid air c ells are well aerated. IMPRESSION: 1. No acute intracranial abnormality. 2. Age related findings. Reviewed, dictated and finalized at location F.
--- NOTE | 2023-09-04 11:08 | ECG_ITS ---
Measurements Intervals [place] Rate: 72 P: 36 ND: 138 QRS: 17 QRSD: 93 T: 48 QT: 409 QTc: 449 Interpretive Statements SINUS RHYTHM DELAYED PRECORDIAL R/S TRANSITION NONSPECIFIC T-WAVE ABNORMALITY- INF/LAT LEADS BORDERLINE ECG COMPARED TO ECG 06/22/2023 14:03:41 NO SIGNIFICANT CHANGES Electronically Signed On 09-04-2023 11:19:04 CDT by Johnathan Tang D.O.
[2023-09-04 11:29] LABS: Basophils Absolute Auto 0.1 K/mm3 (0.0-0.1); Basophils Percent Auto 0.7 % (0.2-1.2); Eosinophils Absolute Auto 0.1 K/mm3 (0-0.3); Eosinophils Percent Auto 0.7 % (0-4.4); Hematocrit 37.5 % (37.0-47.0); Hemoglobin 11.8 g/dL (12.0-15.0); Immature Granulocyte Absolute 0.02 K/mm3 (0.00-0.031); Immature Granulocyte Percent A 0.3 % (0-0.5); Lymphocytes Percent Auto 14.9 % (18.3-44.2); Mean Corpuscular HGB Conc 31.5 g/dl (32-36); Mean Corpuscular Hemoglobin 30.5 pg (26-34); Mean Corpuscular Volume 96.9 fl (80-100); Mean Platelet Volume 9.3 fl (7.4-10.4); Monocytes Absolute Auto 0.6 K/mm3 (0.1-0.6); Monocytes Percent Auto 8.9 % (2.6-8.5); Neutrophils Percent Auto 74.5 % (45.5-73.1); Platelet Count Result 217 k/mm3 (150-375); Red Blood Count 3.87 M/mm3 (4.2-5.4); Red Cell Distribution Width 12.5 % (11.5-14.5); White Blood Count 6.7 K/mm3 (4.5-10.0)
[2023-09-04 11:40] LABS: Alanine Aminotransferase 19 U/L (6-35); Alkaline Phosphatase 67 U/L (38-126); Anion Gap 6 mmol/L (8-16); Aspartate Amino Transferase 39 U/L (14-36); Bilirubin,Total 0.5 mg/dL (0.2-1.3); Blood Urea Nitrogen 24 mg/dL (7-17); Calcium 9.1 mg/dL (8.4-10.2); Carbon Dioxide 32 mmol/L (22-30); Chloride 103 mmol/L (98-107); Estimated CRCL calculation 57 ml/min; Estimated Glomerular Filt Rate > 60; Glucose 94 mg/dL (65-110); Potassium 3.6 mmol/L (3.4-5.0); Sodium 141 mmol/L (137-145)
[2023-09-04 12:38] LABS: Lactic Acid Reflex 0.9 mmol/L (0.7-2.0)
[2023-09-04] MEDS: SODIUM CHLORIDE 0.9% IV 1,000 ML 999 ML IV CONT ×2 (12:42→14:15)
--- NOTE | 2023-09-04 12:43 | ED.GENADULT ---
HPI - General Adult General Chief complaint: Unspecified Stated complaint: not feeling well Time Seen by Provider: 09/04/23 11:26 Source: patient and family Mode of arrival: EMS Limitations: no limitations History of Present Illness HPI narrative: Patient is a 73-year-old female, with PMH of chronic dysphagia with PEG tube, who presents ED via EMS with report of altered mental status. Family at bedside assisted in providing information. They report patient has been confused since Wednesday of last week. They report patient has had visual hallucinations, thinking people are in her house. They also report patient being increasingly weak, difficulty ambulating or performing ADLs. She has also had a few days of diarrhea. Denies rectal bleeding or melena. Denies abdominal pain. Denies nausea or vomiting. Denies fevers. Denies chest pain or shortness of breath. Denies cough or cold symptoms. Related Data Home Medications Medication Instructions Recorded Confirmed cholecalciferol (vitamin D3) 10 10 mcg PO DAILY 06/03/20 12/03/21 mcg (400 unit) capsule fluticasone propionate 50 1 spray intranasal DAILY 06/03/20 12/03/21 mcg/actuation nasal spray,suspension (Flonase Allergy Relief) multivitamin (Daily Multi-Vitamin 1 tablet PO DAILY 06/03/20 12/03/21 tablet) escitalopram oxalate 20 mg tablet 20 mg PO DAILY 09/03/22 09/04/23 mirtazapine 15 mg tablet 15 mg PO DAILY 04/20/23 09/04/23 rosuvastatin 5 mg tablet 5 mg PO DAILY 07/27/23 09/04/23 clonazepam 0.5 mg tablet 0.25 mg PO QID 09/04/23 09/04/23 olanzapine 5 mg tablet 5 mg PO BID 09/04/23 09/04/23 pantoprazole 40 mg granules 40 mg feeding tube HS 09/04/23 09/04/23 delayed-release for susp in packet Allergies Allergy/AdvReac Type Severity Reaction Status Date / Time No Known Allergies Allergy Verified 09/04/23 11:07 Review of Systems Review of Systems: CONSTITUTIONAL: Denies fever, chills, or sweats. EYES: Denies visual changes, redness, or discharge. ENT: Denies rhinorrhea, congestion, sore throat. CARDIOVASCULAR: Denies chest pain. RESPIRATORY: Denies cough or dyspnea. GASTROINTESTINAL: See HPI. GENITOURINARY: Denies dysuria or hematuria. SKIN: Denies rash or itching. MUSCULOSKELETAL: Denies back pain, joint pain, or myalgia. NEUROLOGIC: See HPI. All systems reviewed & are unremarkable except as noted in HPI and below PMFSH Past Medical History Medical History Anxiety Arthritis Asthma Dysphagia Patient lost 80 lb in a year and half after choking food and thereafter she became frightened to eat. She had an extensive workup done at [facility] and she now has a feeding tube for nutrition and she has gained back some weight. Gastroesophageal reflux Surgical History Surgical History History of benign breast biopsy History of cataract extraction with lens replacement History of section History of colonoscopy with polypectomy History of hysterectomy History of percutaneous endoscopic gastrostomy Family History Family History Mother Colon cancer Social History Social History Social History: Surrogate medical decision maker: Jalen Angela (spouse) or Shalini Barroso (daughter). Code status: Full code. Smoking status: Never smoker Alcohol intake: former Substance use: never Substance use type: does not use Lack of Transportation: No Lack of Food: Never True Current Housing: I Have Housing Concerned About Future Housing: Decline to Answer Difficulty Paying Gas/Electric Bills: Decline to Answer Difficulty Paying for Meds: Decline to Answer Currently Unemployed: Decline to Answer Education: Master's Degree or Higher Difficulty w/ Childcare or Fami
[2023-09-04 13:01] LABS: Creatine Kinase 492 U/L (30-135); Magnesium 2.2 mg/dL (1.6-2.3)
[2023-09-04 13:05] LABS: Appearance Urine Clear (Clear); Bilirubin Urine Negative (Negative); Blood Urine Negative (Negative); Color Urine Yellow (Yellow); Glucose Urine UA Negative (Negative); Ketones Urine 1+ mg/dL (Negative); Leukocyte Esterase Ur Negative LEU/UL (Negative); Nitrate Urine Negative (Negative); Protein Urine 1+ mg/dL (Negative); pH Urine 6.5 (5.0-9.0)
[2023-09-04 13:20] LABS: Bacteria Urine None Seen /hpf; Non Pathogenic Casts 0-2; Squamous Epithelial Cell Urine None seen /hpf (Few)
[2023-09-04 13:22] LABS: Add Urine Microscopic? YES
[2023-09-04 13:39] LABS: Influenza A QL RT-PCR Negative (Negative); Influenza B QL RT-PCR Negative (Negative); SARS-CoV-2 RNA PCR Negative (Negative)
--- NOTE | 2023-09-04 15:35 | PM.IMHP ---
H&P: HPI History of Present Illness Date/Time: 09/04/23 15:35 Chief Complaint: Weakness and altered mental status. Narrative: This is a 73-year-old female with anxiety, asthma, chronic dysphagia status post G-tube insertion for which she receives nutritional supplementation, and hyperlipidemia who presented to the emergency department for evaluation of altered mental status and weakness. The patient provides some history however her and daughter provide additional information, with the patient's permission. 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 Since that time she has developed a fear of eating and she has lost 115 lbs. She has had extensive workups at [facility], [facility], and [place] to include EGD x3 which showed esophageal stricture status post dilatation and 3 modified barium swallow studies which were reportedly normal. Despite this, she continues to have a chronic globus sensation and subjective dysphagia. Ultimately a PEG tube was inserted in December 2022 due to malnutrition. 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 According to family members her entire personality has changed. She has severe agoraphobia and rarely leaves the home. She perseverates on the fact that her mouth is dry however continuously reports feelings of mucus in the back of her throat (this is ongoing, prior to being started on medications). She is becoming forgetful, increasingly weak, and ambulates with a slow shuffling gait as she is afraid that she will fall. Family members are worried that she may have dementia or Parkinson's or other neurocognitive disorders though that has apparently been ruled out. She has frequent changes in her medications for the anxiety and more recently she was started back on olanzapine however she has been on that before. In any event, last Wednesday she seemed to take a turn for the worst. She is increasingly weak and is needing more and more assistance performing everyday activities of daily living. Her is having difficulties getting her to the bathroom despite using a gait belt. She is having some issues with urinary incontinence as well which is new for her. She has been seeing people in the home that are not there. She is listing to the right and seems to hold her head down and to the right side despite repeated encouragement to right her posture. She has not had any recent illnesses and there were no reports of sick contacts. She denies fever, chills, sweats, headache, neck ache, focal weakness, paresthesias, facial droop, and difficulty speaking. She denies epigastric and abdominal pain as well as nausea and vomiting. No diarrhea or dysuria. In fact she tends to be a bit constipated, having a bowel movement 2 or 3 times a week. She denies chest pain and shortness of breath. There have been no recent falls. No illicit substance use or alcohol use. In the ED: She was afebrile on arrival with stable vital signs. Labs were significant for a serum carbon dioxide of 32, BUN 24, total CK 492, TSH 0.422. Urine showed 1+ protein, 1+ ketones, 3 to 5 RBC, and 6 to 10 WBC. She was negative for influenza and COVID. Brain CT showed no acute intracranial abnormality and age-related findings. Chest x-ray showed no acute findings. She was given 1000 mL normal saline for mild dehydration and 1 g ceftriaxone for possible UTI. She is being admitted in this setting for further workup of altered mental status and weakness. Review of Systems Review of Systems: Twelve systems were reviewed and are negative except for as per HPI. [facility] Past Medical History Medical History (Rev
[2023-09-04 15:48] LABS: Thyroid Stimulating Hormone 0.422 uIU/mL (0.465-4.680)
[2023-09-04 16:24] LABS: Folic Acid > 20.0 ng/mL (2.76->20)
--- NOTE | 2023-09-04 16:49 | ADMGEN ---
This patient, Aminata Angela, was admitted to Medical Room 349-01. Patient/family oriented to hospital policies and general routines including ID bracelet, bed and alarms, visiting hours, pain management, procedures, bathroom and other care routines, personal items, smoking policy, room service/diet, and visiting hours. Information on how to activate the Rapid Response Team has been discussed. Patient/Family are encouraged to report perceived risks to care and to ask questions if they do not understand what they are told or what they should do.
[2023-09-04 22:53] LABS: Ammonia < 9 umol/L (9-30)
[2023-09-04] MEDS: clonazePAM (*CRX) 0.25 MG TABLET PO (22:59)
[2023-09-04] MEDS: OLANZapine 5 MG TABLET PO (22:59)
[2023-09-04] MEDS: PANTOPRAZOLE 40 MG TABLET PO (23:00)
[2023-09-05] VITALS (9 sets, daily range): BP systolic 104–126; BP diastolic 56–70; PULSE 57–78; RESP 12–20; TEMP 36.8–37; O2SAT 97–99
--- NOTE | 2023-09-05 01:17 | PC.NURSE ---
Daylight Savings Time For Daylight Savings Time Ending in the Fall - Clocks are moved back. For Daylight Savings Time Beginning in the Spring - Clocks are moved ahead. For [facility], the time of change occurs at 0200 hrs. Time is taken from the field observer. This entry on the patient's chart recognizes the change in time reflected during documentation. Example: 2 entries for vital signs may be charted for 0200 hrs.
[2023-09-05 05:44] LABS: Amphetamine Screen Urine Negative (Negative); Barbiturate Screen Urine Negative (Negative); Benzodiazepines Screen Urine Negative (Negative); Cannabinoid Screen Urine Negative (Negative); Cocaine Screen Urine Negative (Negative); Methadone Screen Urine Negative (Negative); Opiate Screen Urine Negative (Negative); Phencyclidine Screen Urine Negative (Negative)
[2023-09-05 05:46] LABS: Hematocrit 36.9 % (37.0-47.0); Hemoglobin 11.8 g/dL (12.0-15.0); Mean Corpuscular Hemoglobin 31.1 pg (26-34); Mean Corpuscular Volume 97.1 fl (80-100); Mean Platelet Volume 9.2 fl (7.4-10.4); Platelet Count Result 199 k/mm3 (150-375); Red Cell Distribution Width 12.2 % (11.5-14.5); White Blood Count 6.3 K/mm3 (4.5-10.0)
[2023-09-05 06:02] LABS: Alanine Aminotransferase 20 U/L (6-35); Albumin Level 3.6 g/dL (3.5-5.1); Alkaline Phosphatase 65 U/L (38-126); Anion Gap 8 mmol/L (8-16); Aspartate Amino Transferase 46 U/L (14-36); Bilirubin,Total 0.6 mg/dL (0.2-1.3); Blood Urea Nitrogen 18 mg/dL (7-17); Calcium 8.8 mg/dL (8.4-10.2); Carbon Dioxide 27 mmol/L (22-30); Chloride 104 mmol/L (98-107); Creatine Kinase 533 U/L (30-135); Estimated CRCL calculation 68 ml/min; Estimated Glomerular Filt Rate > 60; Glucose 62 mg/dL (65-110); Potassium 3.3 mmol/L (3.4-5.0); Sodium 139 mmol/L (137-145)
[2023-09-05] MEDS: OLANZapine 5 MG TABLET PO ×2 (08:10→17:03)
[2023-09-05] MEDS: clonazePAM (*CRX) 0.25 MG TABLET PO ×4 (08:10→20:16)
[2023-09-05] MEDS: ESCITALOPRAM OXALATE 10 MG TABLET 20 MG PO (08:10)
[2023-09-05] MEDS: MIRTAZAPINE 15 MG TABLET PO (08:11)
--- NOTE | 2023-09-05 12:18 | PM.IMPN ---
Progress Note: A&P Assessment and Plan (1) Generalized weakness: Code(s): R53.1 - Weakness Status: Acute Assessment and Plan: Patient has become increasingly weak since losing 115 lb in less than 2 years. Exam is nonfocal. Likely due to a combination of weight loss, malnutrition (she has gained weight and total protein/albumin are within normal limits), and possible underlying neurocognitive disorder. Her weakness is nonfocal and stroke is unlikely. Presentation not typical for Parkinson. No other symptoms to suggest myasthenia gravis. CK is mildly elevated for unclear reasons. She has not had any falls and denies muscle pain. CK elevated from yesterday, give more IVF and reassess tomorrow, cont to hold statin (2) Mild dehydration: Code(s): E86.0 - Dehydration Status: Acute Assessment and Plan: She looks mildly dehydrated on exam and by labs (elevated BUN, 1+ ketones in urine). 1 L normal saline received in the ED; 1 more L to be given overnight. Encourage p.o. liquid intake (family members report that she will drink water but tends to swell around in her mouth before spitting it out in a cup); consider increasing free water flushes (currently receiving 30 mL before and after bolus feeding). Give another 1L bolus 09/05, cont IVF after that, recheck CK in the AM again (3) Cognitive decline: Code(s): R41.89 - Other symptoms and signs involving cognitive functions and awareness Status: Acute Assessment and Plan: It sounds like a gradual neurocognitive decline over the last couple of years in addition to anxiety however according to family members she has been extensively evaluated by multiple specialties including Neurology who felt her symptoms were all due to anxiety. However she continues to worsen and now has shuffling gait, memory loss, personality changes, etc. as per HPI. It is unclear why she seems to be acutely worse since Wednesday. There is no evidence to suggest active infection, electrolytes are within normal limits, and she has not had any significant changes in medications recently (none of them are new). Possible vitamin deficiencies given malnutrition however she has gained weight recently on tube feeds and her total protein albumin are within normal limits. TSH, B12, ammonia, and urine drug screen all wnl Neurology has been consulted for his opinion. PT/OT eval pending (4) Dysphagia: Code(s): R13.10 - Dysphagia, unspecified Status: Acute Assessment and Plan: Patient has chronic dysphagia and globus sensation status post PEG tube. Continue tube feeds for nutritional supplementation (Jevity). (5) Gastroesophageal reflux: Code(s): K21.9 - Gastro-esophageal reflux disease without esophagitis Status: Acute Assessment and Plan: Continue pantoprazole. (6) Anxiety: Code(s): F41.9 - Anxiety disorder, unspecified Status: Acute Assessment and Plan: Continue escitalopram, mirtazapine, and clonazepam. Plan DVT prophylaxis with SCDs GI prophylaxis not indicated Code status full code Subjective Date/time seen: 09/05/23 12:18 Interval history: 73-year-old female with anxiety, asthma, chronic dysphagia status post G-tube insertion for which she receives nutritional supplementation, and hyperlipidemia who presented to the emergency department for evaluation of altered mental status and weakness and currently being treated for dehydration. No overnight events noted. No chest pain or shortness of breath. No nausea, vomiting or diarrhea. No fevers or chills. is in room and states patient seems much better than when she came in. Review of Systems Review of Systems: 12 point review of systems was assessed and was negative except as noted in the HPI Exam Narrative: General: No acute distress, alert and oriented per baseline HEENT: Atraumatic, normocephalic, mucous membran
--- NOTE | 2023-09-05 15:15 | WPDNEURCNPN ---
Assessment and Plan Assessment and plan (1) Generalized weakness: Code(s): R53.1 - Weakness Status: Acute (2) Elevated CK: Code(s): R74.8 - Abnormal levels of other serum enzymes Status: Acute (3) Cognitive decline: Code(s): R41.89 - Other symptoms and signs involving cognitive functions and awareness Status: Acute Plan 1. Nonfocal examination possibly unlikely that she had a stroke does have waited CPK which needs to be followed through [facility] there is no history of fall or any other muscle disease and she is not taking high-dose reversal was statin but again that medicine has been held. Her labs will be repeated for comparison, she does have underlying anxiety disorder with somewhat slow cognitive decline and also reportedly has shuffling gait TSH B12 is being recheck and will obtain the EMG and nerve conduction study before any further recommendations are made for the gait dysfunction also she will need an EEG to evaluate for the baseline activity. Consult date: 09/05/23 HPI: Aminata Angela is a 73 year old female Admitted to the hospital through the emergency room for the complaints of not feeling well patient carries the diagnosis of chronic dysphagia with PEG tube in place and has been recently reportedly confused with visual hallucination along with the complaints of generalized weakness and difficulties in ambulating additionally she has had diarrhea over the last several days without any blood, abdominal pain, nausea or vomiting, or fever. Initial evaluation in the emergency room documented she has been taking [place] report am 20 mg daily, mirtazapine 15 mg daily, clonazepam 0.5 mg q.i.d., olanzapine 5 mg twice a day, and rosuvastatin 5 mg daily. She has ongoing history of anxiety as well. Recently she has lost about 80 lb in a year and has undergone through extensive workup at this hospital as well as [facility] with insertion of feeding 2 and subsequent gain in weight she is a never smoker, former drinker, on initial exam in the emergency room she had appropriate mood and affect with generally nonfocal exam and normal vital signs considering the possibility of the UTI after obtaining the culture he was started on Rocephin and her testing for covid and influenza were negative, routine CT scan of the head was negative for the bleed, chest x-ray was negative for any acute illness, EKG was negative with no atrial fibrillation, and she was admitted for the changes in mental status on the basis of the abnormal UA and dehydration slight elevation of CPK. [facility] Past Medical History Medical History Anxiety Arthritis Asthma Dysphagia Patient lost 80 lb in a year and half after choking food and thereafter she became frightened to eat. She had an extensive workup done at [place], [facility], and [place] and she now has a feeding tube for nutrition and she has gained back some weight. Gastroesophageal reflux Surgical History Surgical History History of benign breast biopsy History of cataract extraction with lens replacement History of section History of colonoscopy with polypectomy History of hysterectomy History of percutaneous endoscopic gastrostomy Family History Family History Mother Colon cancer Social History Social History (Updated 09/04/23 @ 21:24 by Vidya Canseco PA-C) Social History: Surrogate medical decision maker: Jalen Angela (spouse) or Shalini Barroso (daughter). Code status: Full code. Smoking status: Never smoker Alcohol intake: former Substance use: never Substance use type: does not use Lack of Transportation: No Lack of Food: Never True Current Housing: I Have Housing Concerned About Future Housing: Decline to Answer Difficulty Paying Gas/Elect
[2023-09-05 16:38] LABS: Prealbumin 11.9 mg/dL (17.6-36.0)
[2023-09-05 16:54] LABS: Free T4 Free Thyroxine 1.16 ng/mL (0.78-2.19)
[2023-09-05] MEDS: DICYCLOMINE HCL 10 MG CAPSULE 20 MG PO ×2 (17:03→20:16)
[2023-09-05] MEDS: SODIUM CHLORIDE 0.9% IV 1,000 ML 999 ML IV CONT (17:18)
[2023-09-05] MEDS: SODIUM CHLORIDE 0.9% IV 1,000 ML 100 ML IV CONT (18:47)
[2023-09-05] MEDS: PANTOPRAZOLE 40 MG TABLET PO (20:16)
[2023-09-06] VITALS: PULSE 70
[2023-09-06 03:55] VITALS: BP 121/67; PULSE 60; RESP 16; TEMP 36.5; O2SAT 99
[2023-09-06 04:00] VITALS: PULSE 69
[2023-09-06 06:07] LABS: Basophils Percent Auto 0.7 % (0.2-1.2); Eosinophils Absolute Auto 0.1 K/mm3 (0-0.3); Eosinophils Percent Auto 2.5 % (0-4.4); Hematocrit 35.3 % (37.0-47.0); Hemoglobin 11.1 g/dL (12.0-15.0); Immature Granulocyte Absolute 0.01 K/mm3 (0.00-0.031); Immature Granulocyte Percent A 0.2 % (0-0.5); Lymphocytes Absolute Auto 1.11 K/mm3 (0.9-3.2); Lymphocytes Percent Auto 19.6 % (18.3-44.2); Mean Corpuscular HGB Conc 31.4 g/dl (32-36); Mean Corpuscular Hemoglobin 30.6 pg (26-34); Mean Corpuscular Volume 97.2 fl (80-100); Mean Platelet Volume 9.5 fl (7.4-10.4); Monocytes Absolute Auto 0.5 K/mm3 (0.1-0.6); Neutrophils Absolute Auto 3.9 K/mm3 (1.3-6.7); Platelet Count Result 187 k/mm3 (150-375); Red Blood Count 3.63 M/mm3 (4.2-5.4); Red Cell Distribution Width 12.4 % (11.5-14.5); White Blood Count 5.7 K/mm3 (4.5-10.0)
[2023-09-06 06:20] LABS: Alanine Aminotransferase 17 U/L (6-35); Alkaline Phosphatase 54 U/L (38-126); Anion Gap 2 mmol/L (8-16); Aspartate Amino Transferase 31 U/L (14-36); Bilirubin,Total 0.4 mg/dL (0.2-1.3); Blood Urea Nitrogen 12 mg/dL (7-17); Calcium 8.2 mg/dL (8.4-10.2); Carbon Dioxide 31 mmol/L (22-30); Chloride 107 mmol/L (98-107); Creatine Kinase 202 U/L (30-135); Estimated CRCL calculation 85 ml/min; Estimated Glomerular Filt Rate > 60; Glucose 82 mg/dL (65-110); Potassium 3.3 mmol/L (3.4-5.0); Sodium 140 mmol/L (137-145)
[2023-09-06 08:00] VITALS: PULSE 59
[2023-09-06] MEDS: ESCITALOPRAM OXALATE 10 MG TABLET 20 MG PO (08:14)
[2023-09-06] MEDS: MIRTAZAPINE 15 MG TABLET PO (08:14)
[2023-09-06] MEDS: clonazePAM (*CRX) 0.25 MG TABLET PO ×2 (08:14→12:54)
[2023-09-06] MEDS: DICYCLOMINE HCL 10 MG CAPSULE 20 MG PO ×2 (08:14→12:54)
[2023-09-06] MEDS: OLANZapine 5 MG TABLET PO (08:14)
[2023-09-06] MEDS: SODIUM CHLORIDE 0.9% IV 1,000 ML 100 ML IV CONT (08:15)
[2023-09-06 10:55] VITALS: BMI 20.3
[2023-09-06 12:00] VITALS: PULSE 64
[2023-09-06 14:00] VITALS: BP 118/62; PULSE 69; RESP 16; TEMP 36.6; O2SAT 99
--- NOTE | 2023-09-06 14:00 | PM.DS ---
DS: Admitting Diagnosis Discharge Date 09/06/23 Admitting Diagnosis ams DS: Discharge Diagnosis Discharge Diagnosis (1) Generalized weakness: Code(s): R53.1 - Weakness Status: Acute Assessment and Plan: Patient has become increasingly weak since losing 115 lb in less than 2 years. Exam is nonfocal. Likely due to a combination of weight loss, malnutrition (she has gained weight and total protein/albumin are within normal limits), and possible underlying neurocognitive disorder. Her weakness is nonfocal and stroke is unlikely. Presentation not typical for Parkinson. No other symptoms to suggest myasthenia gravis. CK is mildly elevated for unclear reasons. She has not had any falls and denies muscle pain. CK elevated from yesterday, give more IVF and reassess tomorrow, cont to hold statin (2) Mild dehydration: Code(s): E86.0 - Dehydration Status: Acute Assessment and Plan: She looks mildly dehydrated on exam and by labs (elevated BUN, 1+ ketones in urine). 1 L normal saline received in the ED; 1 more L to be given overnight. Encourage p.o. liquid intake (family members report that she will drink water but tends to swell around in her mouth before spitting it out in a cup); consider increasing free water flushes (currently receiving 30 mL before and after bolus feeding). Give another 1L bolus 09/05, cont IVF after that, recheck CK in the AM again (3) Cognitive decline: Code(s): R41.89 - Other symptoms and signs involving cognitive functions and awareness Status: Acute Assessment and Plan: It sounds like a gradual neurocognitive decline over the last couple of years in addition to anxiety however according to family members she has been extensively evaluated by multiple specialties including Neurology who felt her symptoms were all due to anxiety. However she continues to worsen and now has shuffling gait, memory loss, personality changes, etc. as per HPI. It is unclear why she seems to be acutely worse since Wednesday. There is no evidence to suggest active infection, electrolytes are within normal limits, and she has not had any significant changes in medications recently (none of them are new). Possible vitamin deficiencies given malnutrition however she has gained weight recently on tube feeds and her total protein albumin are within normal limits. TSH, B12, ammonia, and urine drug screen all wnl Neurology has been consulted for his opinion. PT/OT eval pending (4) Dysphagia: Code(s): R13.10 - Dysphagia, unspecified Status: Acute Assessment and Plan: Patient has chronic dysphagia and globus sensation status post PEG tube. Continue tube feeds for nutritional supplementation (Jevity). (5) Gastroesophageal reflux: Code(s): K21.9 - Gastro-esophageal reflux disease without esophagitis Status: Acute Assessment and Plan: Continue pantoprazole. (6) Anxiety: Code(s): F41.9 - Anxiety disorder, unspecified Status: Acute Assessment and Plan: Continue escitalopram, mirtazapine, and clonazepam. Plan DVT prophylaxis with SCDs GI prophylaxis not indicated Code status full code DS: Summary Hospital Course Hospital Course: 73-year-old female with anxiety, asthma, chronic dysphagia status post G-tube insertion for which she receives nutritional supplementation, and hyperlipidemia who presented to the emergency department for evaluation of altered mental status and weakness and currently being treated for dehydration. Patient has become increasingly weak since losing 115 lb in less than 2 years. Exam is nonfocal. Likely due to a combination of weight loss, malnutrition (she has gained weight and total protein/albumin are within normal limits), and possible underlying neurocognitive disorder. Her weakness is nonfocal and stroke is unlikely. Presentation not typical for Parkinson. No other symptoms to suggest myasthenia
== END 2023-09-06 15:30 | disposition home health service (06) ==
LOC: ANHED 14:48 → ANH3MED 16:16
PROVIDERS: Emergency Medicine; Physician Assistant; Admitting Provider Student in an Organized Health Care Education/Training Program; Emergency Provider Physician Assistant; PCP Internal Medicine; Visit Provider Student in an Organized Health Care Education/Training Program
DX: R53.1 Weakness (principal); E86.0 Dehydration; R41.89 Other symptoms and signs involving cognitive functions and awareness; R13.10 Dysphagia, unspecified; K21.9 Gastro-esophageal reflux disease without esophagitis; R82.90 Unspecified abnormal findings in urine; R74.8 Abnormal levels of other serum enzymes; R56.9 Unspecified convulsions; R44.1 Visual hallucinations; R26.2 Difficulty in walking, not elsewhere classified; R19.7 Diarrhea, unspecified; E78.5 Hyperlipidemia, unspecified; R94.31 Abnormal electrocardiogram [ECG] [EKG]; R32 Unspecified urinary incontinence; F41.9 Anxiety disorder, unspecified; J45.909 Unspecified asthma, uncomplicated; Z20.822 Contact with and (suspected) exposure to COVID-19; Z93.1 Gastrostomy status; Z79.899 Other long term (current) drug therapy
CPT/HCPCS: 36415; 70450; 71046; 80053; 80307; 81001; 82140; 82550; 82607; 82746; 83605; 83735; 84134; 84436; 84439; 84443; 85025; 85027; 87086; 87088; 87636; 93005; 96361; 96365; 97110; 97161; 97165; 97530; 99285; A9270; G0378; J0696; J7030

== ENCOUNTER 2023-09-14 12:57 | Emergency (ER) | payer MEDICARE, SELFPAY ==
--- NOTE | ~2023-09-14 | XR_ITS ---
EXAMINATION: XR chest 2V DATE: 09/14/2023 13:56 INDICATION: Shortness of breath. Chest tightness. TECHNIQUE: Frontal and lateral views of the chest were obtained. COMPARISON: Chest 2 views 09/04/2023 FINDINGS: There is no pneumonia, pleural effusion, or pneumothorax. The heart size is normal. IMPRESSION: 1. No acute cardiopulmonary disease. Reviewed, dictated and finalized at location A. TIVE SERVICES DIRECTOR
--- NOTE | 2023-09-14 12:58 | ECG_ITS ---
Measurements Intervals [place] Rate: 71 P: 31 MS: 145 QRS: -25 QRSD: 87 T: 69 QT: 384 QTc: 420 Interpretive Statements SINUS RHYTHM POSSIBLE LEFT ATRIAL ENLARGEMENT ANTEROSEPTAL INFARCT, AGE INDETERMINATE INFERIOR INFARCT, AGE INDETERMINATE BASELINE ARTIFACT- I, II, III, AVR, AVL, AVF, V4-V6 ABNORMAL ECG COMPARED TO ECG 09/04/2023 11:15:16 MYOCARDIAL INFARCT NOW PRESENT Electronically Signed On 09-14-2023 13:14:01 MAIL LIST LIBRARIAN by Johnathan Tang D.O.
[2023-09-14 13:18] VITALS: BP 124/68; PULSE 69; RESP 18; TEMP 36.8; O2SAT 97
[2023-09-14 13:34] LABS: Basophils Percent Auto 0.8 % (0.2-1.2); Eosinophils Absolute Auto 0.1 K/mm3 (0-0.3); Eosinophils Percent Auto 1.1 % (0-4.4); Hematocrit 38.7 % (37.0-47.0); Hemoglobin 12.4 g/dL (12.0-15.0); Immature Granulocyte Absolute 0.01 K/mm3 (0.00-0.031); Immature Granulocyte Percent A 0.2 % (0-0.5); Lymphocytes Absolute Auto 0.83 K/mm3 (0.9-3.2); Lymphocytes Percent Auto 15.9 % (18.3-44.2); Mean Corpuscular Hemoglobin 30.5 pg (26-34); Mean Corpuscular Volume 95.3 fl (80-100); Mean Platelet Volume 9.5 fl (7.4-10.4); Monocytes Absolute Auto 0.5 K/mm3 (0.1-0.6); Neutrophils Absolute Auto 3.8 K/mm3 (1.3-6.7); Platelet Count Result 267 k/mm3 (150-375); Red Blood Count 4.06 M/mm3 (4.2-5.4); Red Cell Distribution Width 12.5 % (11.5-14.5); White Blood Count 5.2 K/mm3 (4.5-10.0)
[2023-09-14 13:43] LABS: Lipase 67 U/L (23-300)
[2023-09-14 13:44] LABS: Alanine Aminotransferase 16 U/L (6-35); Albumin Level 4.2 g/dL (3.5-5.1); Alkaline Phosphatase 63 U/L (38-126); Anion Gap 11 mmol/L (8-16); Aspartate Amino Transferase 26 U/L (14-36); Bilirubin,Total 0.4 mg/dL (0.2-1.3); Blood Urea Nitrogen 21 mg/dL (7-17); Calcium 9.4 mg/dL (8.4-10.2); Carbon Dioxide 30 mmol/L (22-30); Chloride 100 mmol/L (98-107); Estimated CRCL calculation 65 ml/min; Estimated Glomerular Filt Rate > 60; Glucose 94 mg/dL (65-110); Potassium 4.2 mmol/L (3.4-5.0); Sodium 141 mmol/L (137-145)
[2023-09-14 13:55] LABS: Troponin I < 0.012 ng/mL (0.000-0.034)
--- NOTE | 2023-09-14 15:01 | ED.GENADULT ---
HPI - General Adult General Chief complaint: Shortness of Breath/Dyspnea Stated complaint: SOB History of Present Illness HPI narrative: Aminata Strickland is a 73 y/o female who presents with complains of difficulty swallowing. She states this has been ongoing for a year and she has had a lot of work ups at [facility] and states they can't seem to find anything, but today she woke up and got worried that she couldn't swallow again and then started to get chest pain. Also reports of feeling SOB. Related Data Home Medications Medication Instructions Recorded Confirmed escitalopram oxalate 20 mg tablet 20 mg PO DAILY 09/03/22 09/04/23 mirtazapine 15 mg tablet 15 mg PO DAILY 04/20/23 09/04/23 rosuvastatin 5 mg tablet 5 mg PO DAILY 07/27/23 09/04/23 clonazepam 0.5 mg tablet 0.25 mg PO QID 09/04/23 09/04/23 clonazepam 0.5 mg tablet 0.5 mg PO HS PRN Seizures 09/04/23 09/04/23 olanzapine 5 mg tablet 5 mg PO BID 09/04/23 09/04/23 pantoprazole 40 mg granules 40 mg PO HS 09/04/23 09/04/23 delayed-release for susp in packet Allergies Allergy/AdvReac Type Severity Reaction Status Date / Time No Known Allergies Allergy Verified 09/04/23 11:07 [facility] Past Medical History Medical History Anxiety Arthritis Asthma Dysphagia Patient lost 80 lb in a year and half after choking food and thereafter she became frightened to eat. She had an extensive workup done at [place], [facility], and [place] and she now has a feeding tube for nutrition and she has gained back some weight. Gastroesophageal reflux Surgical History Surgical History History of benign breast biopsy History of cataract extraction with lens replacement History of section History of colonoscopy with polypectomy History of hysterectomy History of percutaneous endoscopic gastrostomy Family History Family History Mother Colon cancer Social History Social History (Updated 09/04/23 @ 21:24 by Vidya Canseco PA-C) Social History: Surrogate medical decision maker: Jalenashley Angela (spouse) or Shalini Barroso (daughter). Code status: Full code. Smoking status: Never smoker Alcohol intake: former Substance use: never Substance use type: does not use Lack of Transportation: No Lack of Food: Never True Current Housing: I Have Housing Concerned About Future Housing: Decline to Answer Difficulty Paying Gas/Electric Bills: Decline to Answer Difficulty Paying for Meds: Decline to Answer Currently Unemployed: Decline to Answer Education: Master's Degree or Higher Difficulty w/ Childcare or Family Care: No Living arrangements: with family Occupation/Education: retired Additional occupation/education comments: Retired teacher. Spiritual care concerns: No Course Vital Signs Vital signs: Vital Signs Temperature 36.8 C 09/14/23 13:18 Pulse Rate 69 09/14/23 13:18 Respiratory Rate 18 09/14/23 13:18 Blood Pressure 124/68 09/14/23 13:18 Pulse Oximetry 97 09/14/23 13:18 Oxygen Delivery Room Air 09/14/23 13:18 Temperature 36.8 C 09/14/23 13:18 Pulse Rate 69 09/14/23 13:18 Respiratory Rate 18 09/14/23 13:18 Blood Pressure 124/68 09/14/23 13:18 Pulse Oximetry 97 09/14/23 13:18 Oxygen Delivery Room Air 09/14/23 13:18 Medical Decision Making Vital Signs Vital Signs: Vital Signs Temperature 36.8 C 09/14/23 13:18 Pulse Rate 69 09/14/23 13:18 Respiratory Rate 18 09/14/23 13:18 Blood Pressure 124/68 09/14/23 13:18 Pulse Oximetry 97 09/14/23 13:18 Oxygen Delivery Room Air 09/14/23 13:18 Temperature 36.8 C 09/14/23 13:18 Pulse Rate 69 09/14/23 13:18 Respiratory Rate 18 09/14/23 13:18 Blood Pressure 124/68 09/14/23 13:18 Pulse Oximetry 97 09/14/23 13:18 Oxygen Delivery Room A
--- NOTE | 2023-09-14 16:02 | PC.NURSE ---
Pt spouse to community development director, pt spouse very upset about the six hour wait time , pt spouse states they are leaving and will Not be back. Pt ambulatory to exit w/ spouse in NAD.
== END 2023-09-14 16:02 | disposition left against medical advice (07) ==
PROVIDERS: Emergency Medicine; Emergency Provider Nurse Practitioner Family; PCP Internal Medicine
DX: E86.0 Dehydration (principal)
CPT/HCPCS: 36415; 71046; 80053; 83690; 84484; 85025; 93005; 99284

== ENCOUNTER 2023-09-28 11:45 | Observation (INO) | payer MEDICARE, SELFPAY ==
[2023-09-28] VITALS (16 sets, daily range): BP systolic 106–155; BP diastolic 70–90; PULSE 58–71; RESP 12–21; TEMP 36.3–36.6; O2SAT 98–100
--- NOTE | ~2023-09-28 | CT_ITS ---
EXAMINATION: CT brain wo con DATE: 09/28/2023 15:00 INDICATION: Trauma. Head injury. TECHNIQUE: Computed tomography (CT) of the head was performed without intravenous contrast. The dose- length product was 681.00 mGy-cm. Automated exposure control and iterative reconstruction technique w ere employed. COMPARISON: CT dated 09/04/2023 FINDINGS: No acute intracranial hemorrhage, infarction, mass or mass effect. No ventriculomegaly or m idline shift. Basilar cisterns are patent. There are scattered mild periventricular and subcortical w alice matter changes, most likely related to small vessel ischemic disease (microangiopathy). Paranasa l sinuses and mastoids are pneumatized. No depressed skull fractures. Midline sagittal images are unr emarkable. IMPRESSION: 1. No acute intracranial abnormality. Reviewed, dictated and finalized at location L. STAYER
--- NOTE | ~2023-09-28 | MR_ITS ---
MRI of the cervical spine Clinical History: Right arm weakness Technique: Axial T2-weighted and gradient images, and sagittal T1-weighted, T2-weighted, and STIR rahul ges were acquired. Findings: There is minimal grade 1 anterolisthesis of C2 over C3. No fracture evident. No suspicious bone marrow signal abnormality seen. There is minimal grade 1 retrolisthesis of C3 over C4. At C2-C3, there is minimal disc bulge and left facet arthropathy. No central canal stenosis. Possible minimal left neural foraminal narrowing. Right neural foramen preserved. At C3-C4, there is advanced degenerative disc narrowing. There is disc ossify complex with mild canal stenosis but no maryjo cord compression. There is bilateral facet arthropathy, right worse than left, with bilateral neural foraminal narrowing. At C4-C5, there is degenerative disc narrowing with mild disc bulge. There is mild canal stenosis wit hout maryjo cord compression. There is bilateral facet arthropathy with bilateral neural foraminal alba rowing, left worse than right. At C5-C6, there is moderate degenerative disc narrowing. There is disc osteophyte complexes, with mil d canal stenosis but no maryjo cord compression. There is bilateral facet joint degenerative change, r ight worse than left, with right neural foraminal narrowing worse than left. At C6-C7, there is small disc ossify convex. There is minimal flattening the ventral cord. There is r ight neural foraminal narrowing. Left neural foramen preserved. No abnormal signal seen in the spinal cord. Paravertebral soft tissues are unremarkable. Impression: Moderate to advanced degenerative spondylosis, as detailed above. Reviewed, dictated and finalized at [facility]. ICAL INFORMATICS DIRECTOR Impression: Moderate to advanced degenerative spondylosis, as detailed above.
--- NOTE | ~2023-09-28 | XR_ITS ---
XR chest 2V 09/28/2023 12:38 Indication: Weakness and dyspnea Procedure: AP and lateral views of the chest Comparison: Comparison to multiple prior studies sequentially, with oldest reviewed study dated 07/22. Findings: Heart size normal. No focal air space disease, pulmonary edema, pleural effusion or suspect ed pneumothorax. Severe osteoarthritis of the shoulders with adjacent loose bodies. There is a gastri c tube in the left upper abdomen. Impression: 1: No acute cardiopulmonary disease. Reviewed, dictated and finalized at location L. SURE DISPATCHER Impression: 1: No acute cardiopulmonary disease.
--- NOTE | ~2023-09-28 | CT_ITS ---
EXAMINATION: CT facial bones wo con DATE: 09/28/2023 15:01 INDICATION: Right-sided facial swelling TECHNIQUE: Computed tomography (CT) of the facial bones was performed without intravenous contrast. T he dose-length product was 338.80 mGy-cm. Automated exposure control and iterative reconstruction sarah hnique were employed. COMPARISON: CT dated 08/27/2023 FINDINGS: Right periorbital soft tissue swelling. Nasal bones intact. Mandible within normal limits. There are symmetric degenerative changes of the temporomandibular joints. There is small loose body l ateral to the right temporal mandibular joint. Study limited by motion. No significant mucosal thicke jordon of the paranasal sinuses. Mastoids are pneumatized. Amorphous calcifications are present adjacen t to the right shoulder, likely secondary to degenerative change. Severe cervical spondylosis. IMPRESSION: 1. Moderate right periorbital soft tissue swelling. No acute underlying fracture. Reviewed, dictated and finalized at location L. STMENT ASSOCIATE IMPRESSION: 1. Moderate right periorbital soft tissue swelling. No acute underlying fractur e.
--- NOTE | ~2023-09-28 | MR_ITS ---
MRI of the brain Clinical History: CVA Technique: Axial and sagittal T1-weighted images were acquired. These were followed by axial T2-weigh yvonne, diffusion weighted, gradient, and FLAIR images. Following intravenous administration of 10 cc Mu ltiHance gadolinium, T1-weighted fat-sat imaging was performed in the subcarinal planes. Findings: There is no acute infarct, intracranial hemorrhage, mass lesion. There are moderate chronic white matter changes in the periventricular white matter bilaterally. Ventricles and subarachnoid spaces are unremarkable. Orbits are unremarkable. Paranasal sinuses and m astoid air cells are clear. Major intracranial flow voids are intact. Sagittal midline structures are intact. No abnormal postcontrast enhancement seen. IMPRESSION: No acute reality seen. Moderate chronic microvascular ischemic changes in the periventricular white matter. Reviewed, dictated and finalized at location . GATING OFFICER IMPRESSION: No acute reality seen. Moderate chronic microvascular ischemic changes in the periventricular white ma tter.
--- NOTE | 2023-09-28 11:58 | ECG_ITS ---
Measurements Intervals [place] Rate: 60 P: 50 WV: 149 QRS: 2 QRSD: 90 T: 52 QT: 433 QTc: 436 Interpretive Statements SINUS RHYTHM CANNOT RULE OUT SEPTAL INFARCT, AGE INDETERMINATE CONSIDER INFERIOR INFARCT, AGE INDETERMINATE BASELINE ARTIFACT- I, II, AVR, AVL, AVF ABNORMAL ECG COMPARED TO ECG 09/14/2023 13:05:25 NO SIGNIFICANT CHANGES Electronically Signed On 09-28-2023 13:21:18 UTILITY REPAIRER by Johnathan Tang D.O.
[2023-09-28 12:15] LABS: Basophils Percent Auto 0.8 % (0.2-1.2); Eosinophils Percent Auto 0.6 % (0-4.4); Hemoglobin 12.8 g/dL (12.0-15.0); Immature Granulocyte Absolute 0.01 K/mm3 (0.00-0.031); Immature Granulocyte Percent A 0.2 % (0-0.5); Lymphocytes Absolute Auto 0.86 K/mm3 (0.9-3.2); Mean Corpuscular HGB Conc 31.2 g/dl (32-36); Mean Platelet Volume 9.4 fl (7.4-10.4); Monocytes Absolute Auto 0.4 K/mm3 (0.1-0.6); Monocytes Percent Auto 7.7 % (2.6-8.5); Neutrophils Absolute Auto 3.7 K/mm3 (1.3-6.7); Neutrophils Percent Auto 73.7 % (45.5-73.1); Platelet Count Result 257 k/mm3 (150-375); Red Blood Count 4.27 M/mm3 (4.2-5.4); Red Cell Distribution Width 12.6 % (11.5-14.5); White Blood Count 5.1 K/mm3 (4.5-10.0)
[2023-09-28 12:25] LABS: Alanine Aminotransferase 16 U/L (6-35); Albumin Level 4.2 g/dL (3.5-5.1); Alkaline Phosphatase 64 U/L (38-126); Anion Gap 6 mmol/L (8-16); Aspartate Amino Transferase 35 U/L (14-36); Bilirubin,Total 0.5 mg/dL (0.2-1.3); Blood Urea Nitrogen 17 mg/dL (7-17); Calcium 9.5 mg/dL (8.4-10.2); Carbon Dioxide 32 mmol/L (22-30); Chloride 102 mmol/L (98-107); Estimated CRCL calculation 66 ml/min; Estimated Glomerular Filt Rate > 60; Glucose 93 mg/dL (65-110); Potassium 4.1 mmol/L (3.4-5.0); Sodium 140 mmol/L (137-145)
[2023-09-28 12:36] LABS: Appearance Urine Cloudy (Clear); Bacteria Urine None Seen /hpf; Bilirubin Urine Negative (Negative); Blood Urine Negative (Negative); Color Urine Yellow (Yellow); Glucose Urine UA Negative (Negative); Ketones Urine Negative (Negative); Leukocyte Esterase Ur 3+ LEU/UL (Negative); Nitrate Urine Negative (Negative); Non Pathogenic Casts 0-2; Protein Urine Negative (Negative); RBC Urine 0-2 /hpf (0-2); Squamous Epithelial Cell Urine Few /hpf (Few); WBC Urine 21-50 /hpf
[2023-09-28 12:45] LABS: Add Urine Microscopic? YES
--- NOTE | 2023-09-28 13:10 | PC.NURSE ---
swelling noted to right side of face no ecchymosis noted
--- NOTE | 2023-09-28 13:15 | PC.NURSE ---
pt refuses to wear hospital gown, pt is A/O x 4
--- NOTE | 2023-09-28 13:55 | ED.GENADULT ---
HPI - General Adult General Chief complaint: Weakness Stated complaint: fall 2 weeks ago, swelling to throat Time Seen by Provider: 09/28/23 13:53 History of Present Illness HPI narrative: 73-year-old female presenting to the emergency department for evaluation persistent drifting to the right and some facial edema. Per the EMR patient has had this issue for a long period of time. patient has had hospitalization for this issue previously. Family does feel that the symptoms may be worsening. Related Data Home Medications Medication Instructions Recorded Confirmed escitalopram oxalate 20 mg tablet 20 mg PO DAILY 09/03/22 09/28/23 mirtazapine 15 mg tablet 15 mg PO DAILY 04/20/23 09/28/23 rosuvastatin 5 mg tablet 5 mg PO DAILY 07/27/23 09/28/23 clonazepam 0.5 mg tablet 0.25 mg PO QID 09/04/23 09/28/23 clonazepam 0.5 mg tablet 0.5 mg PO HS PRN Anxiety 09/04/23 09/28/23 olanzapine 5 mg tablet 5 mg PO BID 09/04/23 09/28/23 pantoprazole 40 mg granules 40 mg PO BID 09/04/23 09/28/23 delayed-release for susp in packet Allergies Allergy/AdvReac Type Severity Reaction Status Date / Time No Known Allergies Allergy Verified 09/04/23 11:07 Review of Systems Review of Systems: All systems reviewed & are unremarkable except as noted in HPI and below PMFSH Past Medical History Medical History Anxiety Arthritis Asthma Dysphagia Patient lost 80 lb in a year and half after choking food and thereafter she became frightened to eat. She had an extensive workup done at [facility], and [place] and she now has a feeding tube for nutrition and she has gained back some weight. Gastroesophageal reflux Surgical History Surgical History History of benign breast biopsy History of cataract extraction with lens replacement History of section History of colonoscopy with polypectomy History of hysterectomy History of percutaneous endoscopic gastrostomy Family History Family History Mother No problems noted. Father Colon cancer Social History Social History Social History: Surrogate medical decision maker: Jalen Angela (spouse) or Shalini Barroso (daughter). Code status: Full code. 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 HEAD: normocephalic, atraumatic. EYES: PERRLA/EOMI, conjunctivae clear. NOSE: Normal no drainage EARS:TMS clear with good light reflex. THROAT: Pharynx clear, no exudate. NECK: Supple. No adenopathy, no masses. RESPIRATORY: Airway patent, respirations nonlabored. Clear to auscultation bilaterally, no rales, rhonchi, wheezing. CARDIOVASCULAR: Regular rate and rhythm without murmurs rubs or gallops. ABDOMINAL: Soft, nontender, nondistended, normal bowel sounds MUSCULOSKELETAL: Moves all extremities. Strength/ROM intact, No edema, No calf tenderness. NEURO: Alert. Cranial nerves II through XII intact. Patient does lean to the right but patient is able to correct her position but returned back to leaning to the right SKIN: Warm, dry. Normal Color Course Course Emergency
[2023-09-28 15:27] LABS: Influenza A QL RT-PCR Negative (Negative); Influenza B QL RT-PCR Negative (Negative); RSV RNA, RT-PCR Negative (Negative); SARS-CoV-2 RNA PCR Negative (Negative)
--- NOTE | 2023-09-28 17:44 | PC.NURSE ---
pt refuses to wear gown
--- NOTE | 2023-09-28 17:55 | PC.NURSE ---
pt agreed to wear gown. SLN placed right FA
--- NOTE | 2023-09-28 18:23 | PM.IMHP ---
H&P: HPI History of Present Illness Date/Time: 09/28/23 18:00 Chief Complaint: Right side face swelling. Narrative: This is a 73-year-old female with anxiety, asthma, chronic dysphagia status post G-tube insertion for which she receives nutritional supplementation, and hyperlipidemia who presented to the emergency department for evaluation of right-sided facial swelling. The patient provides some of the following history however her and daughter provide additional information, with the patient's permission. The patient is known to the hospitalist service and myself from a recent admission. 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 Since that time she has developed a fear of eating and she has lost 115 lbs. She has had extensive workups at [place], [facility], and [place] to include EGD x3 which showed esophageal stricture status post dilatation and 3 modified barium swallow studies which were reportedly normal. Despite this, she continues to have a chronic globus sensation and subjective dysphagia. Ultimately a PEG tube was inserted in December 2022 due to malnutrition. 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 According to family members her entire personality has changed. She has severe agoraphobia and rarely leaves the home. She perseverates on the fact that her mouth is dry however continuously reports feelings of mucus in the back of her throat (this is ongoing, prior to being started on medications). She is becoming forgetful, increasingly weak, and ambulates with a slow shuffling gait as she is afraid that she will fall. Family members are worried that she may have dementia or Parkinson's or other neurocognitive or neuromuscular disorder though that has apparently been ruled out. She has frequent changes in her medications for the anxiety and more recently she was started back on olanzapine however she has been on that before. Daughter reports that she seems to be progressively worse as time has gone on. She is still leaning to the right and keeps her neck flexed on that right side. She has since developed swelling in the right side of her face and neck, presumably from that positioning. She is unable to sit herself upright in bed. She has to have at least 1 person assist hurt when ambulating to the restroom due to progressive weakness. Today she had appoint with the dentist to evaluate the swelling on the right side of her face as there were concerns for possible tooth infection however the patient has no complaints of tooth pain whatsoever. They decided to bring her in for evaluation due to stroke concerns. Her vital signs have been stable since arrival. UA is positive for 3+ leukocyte esterase and 21 to 50 wbc's but no bacteria were seen and she denies dysuria. She tested negative for influenza, RSV, and COVID. CMP and CBC were pretty unremarkable. No acute abnormalities were noted on chest x-ray or head CT. Face CT showed moderate right periorbital soft tissue swelling. She is being admitted in this setting for MRI and neurology consultation. Review of Systems Review of Systems: Twelve systems were reviewed. She denies fever, chills, or sweats. She continues to complain of mucus in her throat. Denies sore throat. No cough. No chest pain or shortness of breath. She denies nausea, vomiting, and diarrhea. She also denies dysuria. [facility] Past Medical History Medical History Anxiety Arthritis Asthma Dysphagia Patient lost 80 lb in a year and h
[2023-09-29] VITALS (10 sets, daily range): BP systolic 122–132; BP diastolic 64–69; PULSE 52–84; RESP 14–18; TEMP 36.5–36.7; O2SAT 96–100; BMI 18.6
[2023-09-29] MEDS: clonazePAM (*CRX) 0.5 MG TABLET PO (01:13)
--- NOTE | 2023-09-29 09:50 | PM.IMPN ---
Progress Note: A&P Assessment and Plan (1) Cognitive decline: Code(s): R41.89 - Other symptoms and signs involving cognitive functions and awareness Status: Acute Assessment and Plan: Unsure of etiology, appreciate neurology consultation Follow-up MRI History of detailed workup both at this facility and at [facility], no etiology found yet Initiate tube feeds (2) Generalized weakness: Code(s): R53.1 - Weakness Status: Acute Assessment and Plan: See above (3) Dependent edema: Code(s): R60.9 - Edema, unspecified Status: Acute (4) Abnormal urinalysis: Code(s): R82.90 - Unspecified abnormal findings in urine Status: Acute Assessment and Plan: Follow-up urine culture, no antibiotics initiated (5) Anxiety: Code(s): F41.9 - Anxiety disorder, unspecified Status: Acute Assessment and Plan: Continue Klonopin, Remeron, Lexapro and Zyprexa Plan DVT prophylaxis with SCDs GI prophylaxis not indicated Code status full code Subjective Date/time seen: 09/29/23 09:50 Interval history: 73-year-old female with anxiety, asthma, chronic dysphagia status post G-tube insertion for which she receives nutritional supplementation, and hyperlipidemia who presented to the emergency department for evaluation of right-sided facial swelling. No overnight events noted. No chest pain or shortness of breath. No nausea, vomiting or diarrhea. No fevers or chills. Patient is very upset that her tube feedings have not been started. Review of Systems Review of Systems: 12 point review of systems was assessed and was negative except as noted in the HPI Exam Narrative: General: No acute distress, alert and oriented per baseline HEENT: Atraumatic, normocephalic, mucous membranes moist, head leans to the right CV: Regular rate and rhythm, S1, S2 Lungs: Clear to auscultation bilaterally, no rales or crackles noted, no wheezes, good air entry Abdomen: Soft, nontender, nondistended Extremities: Normal to inspection Skin: No rashes noted, no lesions or wounds seen Psych: Anxious, dysthymic Objective Data Vital Signs Vital Signs: Vital Signs - 24 hr 09/28/23 11:53 09/28/23 12:47 09/28/23 13:16 Temperature 97.9 F 97.6 F Pulse Rate 66 68 67 Respiratory Rate 16 16 17 Blood Pressure 106/72 138/74 137/70 Pulse Oximetry 99 100 100 Oxygen Delivery Room Air Room Air 09/28/23 15:01 09/28/23 15:15 09/28/23 15:46 Temperature Pulse Rate 65 65 65 Respiratory Rate 12 21 H 17 Blood Pressure 155/82 H 146/70 H Pulse Oximetry 100 100 100 Oxygen Delivery 09/28/23 16:01 09/28/23 16:16 09/28/23 16:46 Temperature Pulse Rate 65 63 62 Respiratory Rate 17 20 12 Blood Pressure 151/75 H 139/74 138/72 Pulse Oximetry 100 98 99 Oxygen Delivery 09/28/23 17:01 09/28/23 17:16 09/28/23 17:31 Temperature Pulse Rate 60 69 67 Respiratory Rate 16 18 18 Blood Pressure 132/75 145/90 H 133/70 Pulse Oximetry 98 98 Oxygen Delivery 09/28/23 17:45 09/28/23 18:00 09/28/23 21:04 Temperature 97.3 F L 97.4 F L Pulse Rate 71 58 L Respiratory Rate 20 20 Blood Pressure 135/75 Pulse Oximetry 99 99 Oxygen Delivery 09/28/23 20:00 09/29/23 00:00 09/29/23 04:00 Temperature Pulse Rate 64 56 L 55 L Respiratory Rate Blood Pressure Pulse Oximetry Oxygen Delivery 09/29/23 06:34 Temperature 98.1 F Pulse Rate 84 Respiratory Rate 18 Blood Pressure 132/69 Pulse Oximetry 96 Oxygen Delivery Intake/Output Intake/Output: Intake & Output 09/26/23 09/27/23 09/28/23 09/29/23 23:59 23:59 23:59 23:59 Output Total 450 600 Balance -450 -600 Meds/Results Medications: Active Medications Generic Name Dose Route Start Last Admin Trade Name Freq PRN Reason Stop Dose Admin Clonazepam 0.25 mg 09/29/23 09:00 Clonazepam (*Crx) 0.25 Mg Tablet PO QID AGATHA
[2023-09-29] MEDS: MIRTAZAPINE 15 MG TABLET PO (09:52)
[2023-09-29] MEDS: ROSUVASTATIN 5 MG TABLET PO (09:52)
[2023-09-29] MEDS: PANTOPRAZOLE 40 MG TABLET PO ×2 (09:52→17:15)
[2023-09-29] MEDS: clonazePAM (*CRX) 0.25 MG TABLET PO ×4 (09:52→20:29)
[2023-09-29] MEDS: ESCITALOPRAM OXALATE 10 MG TABLET 20 MG PO (09:52)
[2023-09-29] MEDS: OLANZapine 5 MG TABLET PO ×2 (09:52→20:29)
[2023-09-29 10:24] LABS: Basophils Percent Auto 0.6 % (0.2-1.2); Eosinophils Percent Auto 0.6 % (0-4.4); Hematocrit 41.3 % (37.0-47.0); Hemoglobin 13.1 g/dL (12.0-15.0); Immature Granulocyte Absolute 0.01 K/mm3 (0.00-0.031); Immature Granulocyte Percent A 0.2 % (0-0.5); Lymphocytes Absolute Auto 0.73 K/mm3 (0.9-3.2); Lymphocytes Percent Auto 14.5 % (18.3-44.2); Mean Corpuscular HGB Conc 31.7 g/dl (32-36); Mean Corpuscular Hemoglobin 30.4 pg (26-34); Mean Corpuscular Volume 95.8 fl (80-100); Mean Platelet Volume 9.1 fl (7.4-10.4); Monocytes Absolute Auto 0.3 K/mm3 (0.1-0.6); Monocytes Percent Auto 6.6 % (2.6-8.5); Neutrophils Absolute Auto 3.9 K/mm3 (1.3-6.7); Neutrophils Percent Auto 77.5 % (45.5-73.1); Platelet Count Result 240 k/mm3 (150-375); Red Blood Count 4.31 M/mm3 (4.2-5.4); Red Cell Distribution Width 12.3 % (11.5-14.5)
[2023-09-29 10:37] LABS: Alanine Aminotransferase 15 U/L (6-35); Alkaline Phosphatase 63 U/L (38-126); Anion Gap 10 mmol/L (8-16); Aspartate Amino Transferase 27 U/L (14-36); Bilirubin,Total 0.6 mg/dL (0.2-1.3); Blood Urea Nitrogen 13 mg/dL (7-17); Calcium 9.1 mg/dL (8.4-10.2); Carbon Dioxide 29 mmol/L (22-30); Chloride 100 mmol/L (98-107); Estimated CRCL calculation 64 ml/min; Estimated Glomerular Filt Rate > 60; Glucose 81 mg/dL (65-110); Potassium 3.7 mmol/L (3.4-5.0); Sodium 139 mmol/L (137-145)
--- NOTE | 2023-09-29 14:45 | WPDNEURCNPN ---
Assessment and Plan Assessment and plan (1) Generalized weakness: Code(s): R53.1 - Weakness Status: Acute Plan 1 cognitive dysfunction to generalized weakness 3 anxiety recommend generalized strengthening exercises with PT and OT and further care accordingly Consult date: 09/29/23 HPI: Aminata Angela is a 73 year old female 73 years old right-handed female admitted to the hospital through the emergency room where she came with the complaints of a fall 2 weeks ago resulting in addition to swelling of the throat. Patient has been taking multiple medication which particularly included UE site elbow pram 20mg daily, mirtazapine 15mg daily, rosuvastatin 5mg daily, clonazepam 0.5mg q.i.d., olanzapine 5mg twice a day, she is not allergic to any medication she has ongoing history of anxiety, and dysphagia she is never a smoker former alcohol intake or initial evaluation in the emergency room revealed her to have normal vital signs normal CBC and BMP negative for the influenza AB COVID and RSV subsequently moderate to advanced degenerative changes the MRI of the cervical spine without any fracture dislocation, with mild central canal stenosis but no spinal cord compression, normal MRI of the brain except the moderate chronic microvascular ischemic changes in the periventricular white matter PMFSH Past Medical History Medical History Anxiety Arthritis Asthma Dysphagia Patient lost 80 lb in a year and half after choking food and thereafter she became frightened to eat. She had an extensive workup done at [place], [facility], and [place] and she now has a feeding tube for nutrition and she has gained back some weight. Gastroesophageal reflux Surgical History Surgical History History of benign breast biopsy History of cataract extraction with lens replacement History of section History of colonoscopy with polypectomy History of hysterectomy History of percutaneous endoscopic gastrostomy Family History Family History Mother No problems noted. Father Colon cancer Social History Social History Social History: Surrogate medical decision maker: Jalen Angela (spouse) or Shalini Barroso (daughter). Code status: Full code. Smoking status: Never smoker Alcohol intake: former Substance use: never Substance use type: does not use Lack of Transportation: No Lack of Food: Never True Current Housing: I Have Housing Concerned About Future Housing: Decline to Answer Difficulty Paying Gas/Electric Bills: Decline to Answer Difficulty Paying for Meds: Decline to Answer Currently Unemployed: Decline to Answer Education: Master's Degree or Higher Difficulty w/ Childcare or Family Care: No Living arrangements: with family Occupation/Education: retired Additional occupation/education comments: Retired teacher. Spiritual care concerns: No Meds Home Medications and Allergies Home Medications Medication Instructions Recorded Confirmed Type escitalopram oxalate 20 mg tablet 20 mg PO DAILY 09/03/22 09/28/23 History mirtazapine 15 mg tablet 15 mg PO DAILY 04/20/23 09/28/23 History rosuvastatin 5 mg tablet 5 mg PO DAILY 07/27/23 09/28/23 History clonazepam 0.5 mg tablet 0.25 mg PO QID 09/04/23 09/28/23 History clonazepam 0.5 mg tablet 0.5 mg PO HS PRN Anxiety 09/04/23 09/28/23 History olanzapine 5 mg tablet 5 mg PO BID 09/04/23 09/28/23 History pantoprazole 40 mg granules 40 mg PO BID 09/04/23 09/28/23 History delayed-release for susp in packet Allergies Allergy/AdvReac Type Severity Reaction Status Date / Time No Known Allergies Allergy Verified 09/04/23 11:07 Vital Signs Vital Signs - 24 hr 09/28/23 15:01 09/28/23 15:15 09/28/23 15:46 T
[2023-09-30] VITALS: PULSE 47
[2023-09-30 04:00] VITALS: PULSE 51
[2023-09-30 05:47] LABS: Basophils Percent Auto 0.6 % (0.2-1.2); Eosinophils Absolute Auto 0.1 K/mm3 (0-0.3); Eosinophils Percent Auto 2.2 % (0-4.4); Hematocrit 42.4 % (37.0-47.0); Hemoglobin 13.5 g/dL (12.0-15.0); Immature Granulocyte Absolute 0.02 K/mm3 (0.00-0.031); Immature Granulocyte Percent A 0.4 % (0-0.5); Lymphocytes Absolute Auto 1.19 K/mm3 (0.9-3.2); Lymphocytes Percent Auto 22.1 % (18.3-44.2); Mean Corpuscular HGB Conc 31.8 g/dl (32-36); Mean Corpuscular Hemoglobin 30.3 pg (26-34); Mean Corpuscular Volume 95.3 fl (80-100); Mean Platelet Volume 9.2 fl (7.4-10.4); Monocytes Absolute Auto 0.5 K/mm3 (0.1-0.6); Monocytes Percent Auto 9.3 % (2.6-8.5); Neutrophils Absolute Auto 3.5 K/mm3 (1.3-6.7); Neutrophils Percent Auto 65.4 % (45.5-73.1); Platelet Count Result 252 k/mm3 (150-375); Red Blood Count 4.45 M/mm3 (4.2-5.4); Red Cell Distribution Width 12.5 % (11.5-14.5); White Blood Count 5.4 K/mm3 (4.5-10.0)
[2023-09-30 05:59] LABS: Alanine Aminotransferase 17 U/L (6-35); Albumin Level 4.1 g/dL (3.5-5.1); Alkaline Phosphatase 76 U/L (38-126); Anion Gap 10 mmol/L (8-16); Aspartate Amino Transferase 24 U/L (14-36); Bilirubin,Total 0.4 mg/dL (0.2-1.3); Blood Urea Nitrogen 21 mg/dL (7-17); Calcium 9.4 mg/dL (8.4-10.2); Carbon Dioxide 30 mmol/L (22-30); Chloride 100 mmol/L (98-107); Estimated CRCL calculation 64 ml/min; Estimated Glomerular Filt Rate > 60; Glucose 126 mg/dL (65-110); Potassium 3.7 mmol/L (3.4-5.0); Sodium 140 mmol/L (137-145)
[2023-09-30 06:00] VITALS: BP 122/64; PULSE 67; RESP 17; TEMP 36.4; O2SAT 98
[2023-09-30] MEDS: clonazePAM (*CRX) 0.5 MG TABLET PO (06:05)
[2023-09-30 08:00] VITALS: PULSE 60
[2023-09-30] MEDS: OLANZapine 5 MG TABLET PO (09:27)
[2023-09-30] MEDS: MIRTAZAPINE 15 MG TABLET PO (09:27)
[2023-09-30] MEDS: ROSUVASTATIN 5 MG TABLET PO (09:27)
[2023-09-30] MEDS: clonazePAM (*CRX) 0.25 MG TABLET PO (09:27)
[2023-09-30] MEDS: PANTOPRAZOLE 40 MG TABLET PO (09:27)
[2023-09-30] MEDS: ESCITALOPRAM OXALATE 10 MG TABLET 20 MG PO (09:27)
--- NOTE | 2023-09-30 09:31 | PM.DS ---
DS: Admitting Diagnosis Discharge Date 09/30/23 Admitting Diagnosis facial swelling DS: Discharge Diagnosis Discharge Diagnosis (1) Cognitive decline: Code(s): R41.89 - Other symptoms and signs involving cognitive functions and awareness Status: Acute Assessment and Plan: Unsure of etiology, appreciate neurology consultation Follow-up MRI History of detailed workup both at this facility and at [facility], no etiology found yet Initiate tube feeds (2) Generalized weakness: Code(s): R53.1 - Weakness Status: Acute Assessment and Plan: See above (3) Dependent edema: Code(s): R60.9 - Edema, unspecified Status: Acute (4) Abnormal urinalysis: Code(s): R82.90 - Unspecified abnormal findings in urine Status: Acute Assessment and Plan: Follow-up urine culture, no antibiotics initiated (5) Anxiety: Code(s): F41.9 - Anxiety disorder, unspecified Status: Acute Assessment and Plan: Continue Klonopin, Remeron, Lexapro and Zyprexa Plan DVT prophylaxis with SCDs GI prophylaxis not indicated Code status full code DS: Summary Hospital Course Hospital Course: 73-year-old female with anxiety, asthma, chronic dysphagia status post G-tube insertion for which she receives nutritional supplementation, and hyperlipidemia who presented to the emergency department for evaluation of right-sided facial swelling. Workup was negative for any insidious etiology. MRI reviewed with Neurology and no concerns. Neurology is recommending discharge with PT/OT. Please see above and [facility] rec for details. Patient was discharged in stable condition with close outpatient follow-up. Time Spent with Patient Time attestation: Total time spent providing and/or coordinating discharge services: Exam Narrative: General: No acute distress, alert and oriented per baseline HEENT: Atraumatic, normocephalic, mucous membranes moist, head leans to the right CV: Regular rate and rhythm, S1, S2 Lungs: Clear to auscultation bilaterally, no rales or crackles noted, no wheezes, good air entry Abdomen: Soft, nontender, nondistended Extremities: Normal to inspection Skin: No rashes noted, no lesions or wounds seen Psych: Anxious, dysthymic DS: Data Data Completed and Pending Labs on day of discharge: Labs from last 24 hours 09/30/23 09/29/23 05:40 10:13 WBC 5.4 5.0 RBC 4.45 4.31 Hgb 13.5 13.1 Hct 42.4 41.3 MCV 95.3 95.8 MCH 30.3 30.4 MCHC 31.8 L 31.7 L RDW 12.5 12.3 Plt Count 252 240 MPV 9.2 9.1 Immature Gran % (Auto) 0.4 0.2 Neut % (Auto) 65.4 77.5 H Lymph % (Auto) 22.1 14.5 L [place] % (Auto) 9.3 H 6.6 Eos % (Auto) 2.2 0.6 Baso % (Auto) 0.6 0.6 Lymph # (Auto) 1.19 0.73 L [place] # (Auto) 0.5 0.3 Eos # (Auto) 0.1 0.0 Baso # (Auto) 0.0 0.0 Abs Immat Gran (auto) 0.02 0.01 Absolute Neuts (auto) 3.5 3.9 Absolute Nucleated RBC 0.0 0.0 Nucleated RBC % 0.0 0.0 Sodium 140 139 Potassium 3.7 3.7 Chloride 100 100 Carbon Dioxide 30 29 Anion Gap 10 10 BUN 21 H 13 Creatinine 0.50 L 0.50 L Estim Creat Clear Calc 64 64 Estimated GFR > 60 > 60 Glucose 126 H 81 Calcium 9.4 9.1 Total Bilirubin 0.4 0.6 AST 24 27 ALT 17 15 Alkaline Phosphatase 76 63 Total Protein 7.0 7.0 Albumin 4.1 4.0 Discharge Plan Discharge Attending physician on discharge: Leonor Saba Consulting providers: Minh Garcia Discharging Clinician: Leonor Saba Patient Disposition: Home, Self-Care Activity: as tolerated Diet: as tolerated and tube feeding Discharge Instructions: Care Coordination: Patient to have [facility] for PT/OT eval and treat, and intermediate. They can be reached at [phone] if you have any questions. They will contact you to schedule their first visit. RN Please fax discharge instructions to [phone]. Angela
== END 2023-09-30 11:40 | disposition home health service (06) ==
LOC: ANHED 16:00 → ANH3MED 09-29 02:58
PROVIDERS: Emergency Medicine; Admitting Provider Internal Medicine; Emergency Provider Emergency Medicine; PCP Internal Medicine; Visit Provider Student in an Organized Health Care Education/Training Program
DX: R41.89 Other symptoms and signs involving cognitive functions and awareness (principal); R53.1 Weakness; R60.9 Edema, unspecified; R82.90 Unspecified abnormal findings in urine; Z93.1 Gastrostomy status; R13.10 Dysphagia, unspecified; K21.9 Gastro-esophageal reflux disease without esophagitis; Z20.822 Contact with and (suspected) exposure to COVID-19; E78.5 Hyperlipidemia, unspecified; F41.9 Anxiety disorder, unspecified; J45.909 Unspecified asthma, uncomplicated; R94.31 Abnormal electrocardiogram [ECG] [EKG]; Z79.899 Other long term (current) drug therapy
CPT/HCPCS: 36415; 70450; 70486; 70553; 71046; 72141; 80053; 81001; 85025; 87086; 87088; 87637; 93005; 99285; A9270; A9577; G0378

== ENCOUNTER 2023-10-06 09:43 | Emergency (ER) | payer MEDICARE, SELFPAY ==
--- NOTE | ~2023-10-06 | CT_ITS ---
EXAMINATION: CT brain wo con DATE: 10/06/2023 10:05 INDICATION: Head injury TECHNIQUE: Computed tomography (CT) of the head was performed without intravenous contrast. Sagittal and coronal reconstructions were performed. The mA was adjusted according to patient size. Iterative reconstruction technique was employed. The dose-length product was 681.00 mGy-cm. COMPARISON: head CT and brain MR dated 09/28/2023 FINDINGS: Prominent right periorbital soft tissue swelling. No fracture. Changes of bilateral intraocular lens replacement. Orbits appear otherwise normal with no post septal inflammatory stranding. No acute intr acranial hemorrhage, acute infarction or abnormal extra axial fluid collection. There is mild to mode rate scattered white matter hypoattenuation consistent with chronic small vessel ischemic disease. V entricles are normal and symmetric. No mass/mass effect. The orbits, paranasal sinuses and mastoid ai r cells are normal. IMPRESSION: 1. No fracture or acute intracranial process. 2. Stable mild to moderate scattered white matter hypoattenuation consistent with chronic small vesse l ischemic disease. Reviewed, dictated and finalized at location A. UCTION TRAINER IMPRESSION: 1. No fracture or acute intracranial process. 2. Stable mild to moderate scattered white matter hypoattenuation consistent wi th chronic small vessel ischemic disease.
--- NOTE | ~2023-10-06 | CT_ITS ---
EXAMINATION: 1. CT facial & cervical spine wo DATE: 10/06/2023 10:05 INDICATION: Fall with head injury and facial swelling TECHNIQUE: 1. Computed tomography (CT) of the maxillofacial region and of the cervical spine were performed with out intravenous contrast. Sagittal and coronal reconstructions of both regions were obtained. Automat ed exposure control and iterative reconstruction technique were employed. The dose-length product was 155.73 mGy-cm. COMPARISON: Cervical spine MR dated 09/29/2023 FINDINGS: Maxillofacial CT: Prominent right periorbital and preseptal soft tissue swelling. Bilateral globes appear intact with t his of bilateral intraocular lens replacement. No post septal inflammatory stranding. No maxillofacia l fractures. Specifically the charles of the orbits and paranasal sinuses, the mandible, nasal bones an d zygomatic arches are all intact. Temporomandibular joints are normal alignment with moderate osteoa rthritis. Mild mucosal thickening in the right maxillary and bilateral ethmoid sinuses. Mastoid air c ells and middle ear cavities are clear. Cervical spine CT: Mild cervicothoracic levocurvature. Straightening of the normal cervical lordosis. 2 mm retrolisthesi s C3 on C4 and 2 mm anterolisthesis C7 on T1. Vertebral body heights are normal. No acute fracture. M oderate to severe disc height loss at C3-C4, C4-C5, C6-C7, T1-T2 and T2-T3. Moderate disc height loss at C5-C6 and C7-T1. There are disc osteophyte complexes as well as disc bulges but appreciated on pr ior MRI resulting in multilevel mild central canal stenosis. There is multilevel moderate to severe c ervical uncovertebral and facet osteoarthritis. This contributes to moderate neural foraminal stenosi s on the right at C3-C4, C5-C6 and C6-C7 and on the left at C3-C4 and C4-C5. Mild neural from stenosi s at the remaining cervical neural foramina. Cervical soft tissues are unremarkable. Minimal biapical pleural-parenchymal scarring. IMPRESSION: 1. Right periorbital soft tissue swelling. Orbits are otherwise unremarkable and there are no maxillo facial or cervical fractures. 2. Moderate to severe cervical spondylosis. Reviewed, dictated and finalized at location A. ERCIAL LOAN ANALYST IMPRESSION: 1. Right periorbital soft tissue swelling. Orbits are otherwise unremarkable an d there are no maxillofacial or cervical fractures. 2. Moderate to severe cervical spondylosis.
[2023-10-06 09:46] VITALS: BP 124/67; PULSE 77; RESP 18; TEMP 37.4; O2SAT 99
[2023-10-06 10:33] VITALS: BP 120/69; PULSE 63; RESP 18; O2SAT 100
--- NOTE | 2023-10-06 10:35 | ED.FALL ---
HPI - Fall General Chief Complaint: Fall Stated Complaint: fall Time Seen by Provider: 10/06/23 09:46 History of Present Illness HPI Narrative: 73-year-old female presenting to the emergency department for evaluation after having a ground level fall this morning. Patient reports the patient was sitting In her recliner and he went to help get her up and when he stepped away the patient stood up on her own and had a ground level fall and patient struck a nearby nightstand with the right side of her face. Patient denies any loss of consciousness. Patient's only complaint is some right-sided facial pain. Patient does have some ecchymosis of the right eye but denies any change in vision of the right eye. Related Data Home Medications Medication Instructions Recorded Confirmed escitalopram oxalate 20 mg tablet 20 mg PO DAILY 09/03/22 09/28/23 mirtazapine 15 mg tablet 15 mg PO DAILY 04/20/23 09/28/23 rosuvastatin 5 mg tablet 5 mg PO DAILY 07/27/23 09/28/23 clonazepam 0.5 mg tablet 0.25 mg PO QID 09/04/23 09/28/23 clonazepam 0.5 mg tablet 0.5 mg PO HS PRN Anxiety 09/04/23 09/28/23 olanzapine 5 mg tablet 5 mg PO BID 09/04/23 09/28/23 pantoprazole 40 mg granules 40 mg PO BID 09/04/23 09/28/23 delayed-release for susp in packet Allergies Allergy/AdvReac Type Severity Reaction Status Date / Time No Known Allergies Allergy Verified 09/04/23 11:07 Review of Systems Review of Systems: All systems reviewed & are unremarkable except as noted in HPI and below PMFSH Past Medical History Medical History Anxiety Arthritis Asthma Dysphagia Patient lost 80 lb in a year and half after choking food and thereafter she became frightened to eat. She had an extensive workup done at [facility], and [place] and she now has a feeding tube for nutrition and she has gained back some weight. Gastroesophageal reflux Surgical History Surgical History History of benign breast biopsy History of cataract extraction with lens replacement History of section History of colonoscopy with polypectomy History of hysterectomy History of percutaneous endoscopic gastrostomy Family History Family History Mother No problems noted. Father Colon cancer Social History Social History Social History: Surrogate medical decision maker: Jalen Angela (spouse) or Shalini Barroso (daughter). Code status: Full code. 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 HEAD: normocephalic, atraumatic. EYES: PERRLA/EOMI, conjunctivae clear. NOSE: Normal no drainage EARS:TMS clear with good light reflex. normal conjunctiva normal visual field of the right eye THROAT: Pharynx clear, no exudate. NECK: Supple. No adenopathy, no masses. RESPIRATORY: Airway patent, respirations nonlabored. Clear to auscultation bilaterally, no rales, rhonchi, wheezing. CARDIOVASCULAR: Regular rate and rhythm without murmurs rubs or gallops. ABDOMINAL: Soft, nontender, nondistended, normal bowel sounds MUSCULOSKELETAL: Moves all extremities. Strength/ROM inta
[2023-10-06 11:22] VITALS: BP 120/70; PULSE 60; RESP 18; O2SAT 98
== END 2023-10-06 11:23 | disposition home or self-care (01) ==
PROVIDERS: Emergency Provider Emergency Medicine; PCP Internal Medicine
DX: S05.11XA Contusion of eyeball and orbital tissues, right eye, initial encounter (principal); J45.909 Unspecified asthma, uncomplicated; K21.9 Gastro-esophageal reflux disease without esophagitis; M19.90 Unspecified osteoarthritis, unspecified site; F41.9 Anxiety disorder, unspecified; Z93.1 Gastrostomy status; Z98.49 Cataract extraction status, unspecified eye; Z96.1 Presence of intraocular lens; Z90.710 Acquired absence of both cervix and uterus; M47.812 Spondylosis without myelopathy or radiculopathy, cervical region; W01.190A Fall on same level from slipping, tripping and stumbling with subsequent striking against furniture, initial encounter
CPT/HCPCS: 70450; 70486; 72125; 99284

== ENCOUNTER 2023-10-17 11:01 | Emergency (ER) | payer MEDICARE, SELFPAY ==
--- NOTE | ~2023-10-17 | XR_ITS ---
XR chest 1V portable 10/17/2023 12:02 Indication: Shortness of breath and weakness Procedure: AP portable chest Comparison: Comparison to multiple prior studies sequentially, with oldest reviewed study dated 06/22. Findings: Heart size is normal. No focal air space disease, pulmonary edema, pleural effusion or susp ected pneumothorax. There is left basilar atelectasis. Severe osteoarthritis of the shoulders. Impression: 1: No acute cardiopulmonary disease. Reviewed, dictated and finalized at location A. ORMING MACHINE OPERATOR Impression: 1: No acute cardiopulmonary disease.
--- NOTE | 2023-10-17 11:09 | ECG_ITS ---
Measurements Intervals [place] Rate: 64 P: 36 TX: 117 QRS: 18 QRSD: 85 T: 72 QT: 403 QTc: 418 Interpretive Statements SINUS RHYTHM WITH SHORT TX INTERVAL POOR R-WAVE PROGRESSION BORDERLINE ECG COMPARED TO ECG 09/28/2023 13:07:05 NO SIGNIFICANT CHANGES Electronically Signed On 10-18-2023 7:15:02 NEUROLOGY SPECIALIST by Roel Carver M.D.
[2023-10-17 11:13] VITALS: BP 110/65; PULSE 66; RESP 16; TEMP 36.4; O2SAT 98
--- NOTE | 2023-10-17 11:28 | ED.GENADULT ---
HPI - General Adult General Chief complaint: Shortness of Breath/Dyspnea Stated complaint: diffuculty swallowing and breathing Time Seen by Provider: 10/17/23 11:05 History of Present Illness HPI narrative: 73-year-old female presenting to the emergency department for evaluation of difficulty breathing and swallowing. Patient states this occurs every day in the morning when she wakes up but she felt that was more significant today. Upon arrival to the emergency department patient patient was drinking water and patient is saturating at 98% on room air. Patient has had extensive workup recently for a change in behavior and frequently leaning to the right Related Data Home Medications Medication Instructions Recorded Confirmed escitalopram oxalate 20 mg tablet 20 mg PO DAILY 09/03/22 09/28/23 mirtazapine 15 mg tablet 15 mg PO DAILY 04/20/23 09/28/23 rosuvastatin 5 mg tablet 5 mg PO DAILY 07/27/23 09/28/23 clonazepam 0.5 mg tablet 0.25 mg PO QID 09/04/23 09/28/23 clonazepam 0.5 mg tablet 0.5 mg PO HS PRN Anxiety 09/04/23 09/28/23 olanzapine 5 mg tablet 5 mg PO BID 09/04/23 09/28/23 pantoprazole 40 mg granules 40 mg PO BID 09/04/23 09/28/23 delayed-release for susp in packet Allergies Allergy/AdvReac Type Severity Reaction Status Date / Time No Known Allergies Allergy Verified 10/17/23 11:02 Review of Systems Review of Systems: All systems reviewed & are unremarkable except as noted in HPI and below PMFSH Past Medical History Medical History Anxiety Arthritis Asthma Dysphagia Patient lost 80 lb in a year and half after choking food and thereafter she became frightened to eat. She had an extensive workup done at [place], [facility], and [place] and she now has a feeding tube for nutrition and she has gained back some weight. Gastroesophageal reflux Surgical History Surgical History History of benign breast biopsy History of cataract extraction with lens replacement History of section History of colonoscopy with polypectomy History of hysterectomy History of percutaneous endoscopic gastrostomy Family History Family History Mother No problems noted. Father Colon cancer Social History Social History Social History: Surrogate medical decision maker: Jalen Angela (spouse) or Shalini Barroso (daughter). Code status: Full code. 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 HEAD: normocephalic, atraumatic. EYES: PERRLA/EOMI, conjunctivae clear. NOSE: Normal no drainage EARS:TMS clear with good light reflex. THROAT: Pharynx clear, no exudate. NECK: Supple. No adenopathy, no masses. RESPIRATORY: Airway patent, respirations nonlabored. Clear to auscultation bilaterally, no rales, rhonchi, wheezing. CARDIOVASCULAR: Regular rate and rhythm without murmurs rubs or gallops. ABDOMINAL: Soft, nontender, nondistended, normal bowel sounds MUSCULOSKELETAL: Moves all extremities. Strength/ROM intact, No edema, No calf tenderness. NEURO: Alert. Cranial nerves II through XII intact. Good gait. Good c
[2023-10-17 11:41] LABS: Basophils Percent Auto 0.8 % (0.2-1.2); Eosinophils Percent Auto 0.4 % (0-4.4); Hematocrit 38.6 % (37.0-47.0); Hemoglobin 12.2 g/dL (12.0-15.0); Immature Granulocyte Absolute 0.01 K/mm3 (0.00-0.031); Immature Granulocyte Percent A 0.2 % (0-0.5); Lymphocytes Absolute Auto 0.72 K/mm3 (0.9-3.2); Lymphocytes Percent Auto 13.7 % (18.3-44.2); Mean Corpuscular HGB Conc 31.6 g/dl (32-36); Mean Corpuscular Hemoglobin 30.3 pg (26-34); Mean Corpuscular Volume 95.8 fl (80-100); Mean Platelet Volume 9.5 fl (7.4-10.4); Monocytes Absolute Auto 0.4 K/mm3 (0.1-0.6); Neutrophils Percent Auto 76.9 % (45.5-73.1); Platelet Count Result 234 k/mm3 (150-375); Red Blood Count 4.03 M/mm3 (4.2-5.4); White Blood Count 5.3 K/mm3 (4.5-10.0)
[2023-10-17 11:51] LABS: Alanine Aminotransferase 15 U/L (6-35); Albumin Level 3.8 g/dL (3.5-5.1); Alkaline Phosphatase 64 U/L (38-126); Anion Gap 4 mmol/L (8-16); Aspartate Amino Transferase 28 U/L (14-36); Bilirubin,Total 0.4 mg/dL (0.2-1.3); Blood Urea Nitrogen 21 mg/dL (7-17); Calcium 9.1 mg/dL (8.4-10.2); Carbon Dioxide 32 mmol/L (22-30); Chloride 102 mmol/L (98-107); Estimated CRCL calculation 61 ml/min; Estimated Glomerular Filt Rate > 60; Glucose 125 mg/dL (65-110); Potassium 4.1 mmol/L (3.4-5.0); Sodium 138 mmol/L (137-145)
[2023-10-17 12:01] VITALS: BP 109/55; PULSE 62; RESP 18; TEMP 36.7; O2SAT 98
[2023-10-17 12:15] VITALS: PULSE 62; RESP 20; O2SAT 98
[2023-10-17 12:31] VITALS: BP 122/65; PULSE 69; RESP 17; O2SAT 98
[2023-10-17 13:01] VITALS: BP 125/62; PULSE 66; RESP 17; TEMP 36.6; O2SAT 98
== END 2023-10-17 13:10 | disposition home or self-care (01) ==
PROVIDERS: Emergency Provider Emergency Medicine; PCP Internal Medicine
DX: R13.10 Dysphagia, unspecified (principal); R06.02 Shortness of breath; J45.909 Unspecified asthma, uncomplicated; K21.9 Gastro-esophageal reflux disease without esophagitis; M19.90 Unspecified osteoarthritis, unspecified site; F41.9 Anxiety disorder, unspecified; Z98.49 Cataract extraction status, unspecified eye; Z96.1 Presence of intraocular lens; Z90.710 Acquired absence of both cervix and uterus
CPT/HCPCS: 36415; 71045; 80053; 85025; 93005; 99284

== ENCOUNTER 2023-10-22 17:35 | Emergency (ER) | payer MEDICARE, SELFPAY ==
[2023-10-22 17:44] VITALS: BP 121/57; PULSE 70; RESP 18; TEMP 37.1; O2SAT 98
--- NOTE | 2023-10-22 18:51 | PC.NURSE ---
patient and patient's leaving ED at this time. patient in no distress.
== END 2023-10-22 18:51 | disposition left against medical advice (07) ==
LOC: ANHED 19:01
PROVIDERS: PCP Internal Medicine
DX: T18.9XXA Foreign body of alimentary tract, part unspecified, initial encounter (principal)
CPT/HCPCS: 99199

== ENCOUNTER 2023-10-31 08:37 | Emergency (ER) | payer MEDICARE, SELFPAY ==
--- NOTE | ~2023-10-31 | CT_ITS ---
EXAMINATION: CT soft tissue neck w con DATE: 10/31/2023 11:04 INDICATION: Neck pain with swallowing. TECHNIQUE: Computed tomography (CT) of the neck was performed with 75 mL Omnipaque-350 intravenous co ntrast. Automated exposure control and iterative reconstruction technique were employed. The dose-yan gth product was 384.60 mGy-cm. COMPARISON: CT cervical spine 10/06/2023 FINDINGS: There are likely changes of ocular lens replacement surgeries. The pharynx and larynx are u nremarkable. There is a 1.8 cm nodule in right thyroid lobe. There are no pathologically enlarged lym ph nodes. The cervical carotid arteries are normal. There is severe cervical spondylosis. IMPRESSION: 1. No etiology for the patient's symptoms. 2. Right thyroid nodule status post nondiagnostic biopsy. Consider repeat ultrasound-guided fine-need le aspiration. Reviewed, dictated and finalized at location A. TRY TRIMMER IMPRESSION: 1. No etiology for the patient's symptoms. 2. Right thyroid nodule status post nondiagnostic biopsy. Consider repeat ultra sound-guided fine-needle aspiration.
[2023-10-31 08:40] VITALS: BP 133/68; PULSE 62; RESP 18; TEMP 36.6; O2SAT 100
--- NOTE | 2023-10-31 09:50 | ED.GENADULT ---
HPI - General Adult General Chief complaint: Unspecified Stated complaint: something stuck in throat Time Seen by Provider: 10/31/23 09:02 History of Present Illness HPI narrative: 73-year-old female presenting to the emergency department for evaluation chronic pain with swallowing. Patient has had this issue ongoing for approximately 2 years. Patient does have pending follow-up with GI. Patient also has follow-up pending with psychiatry. Patient states he does have increased anxiety today. Patient is handling her own secretions and appears to be in no distress upon arrival. Related Data Home Medications Medication Instructions Recorded Confirmed escitalopram oxalate 20 mg tablet 20 mg PO DAILY 09/03/22 10/31/23 mirtazapine 15 mg tablet 15 mg PO DAILY 04/20/23 10/31/23 rosuvastatin 5 mg tablet 5 mg PO DAILY 07/27/23 10/31/23 clonazepam 0.5 mg tablet 0.25 mg PO QID 09/04/23 10/31/23 clonazepam 0.5 mg tablet 0.5 mg PO HS PRN Anxiety 09/04/23 10/31/23 olanzapine 5 mg tablet 5 mg PO BID 09/04/23 10/31/23 pantoprazole 40 mg granules 40 mg PO BID 09/04/23 10/31/23 delayed-release for susp in packet Allergies Allergy/AdvReac Type Severity Reaction Status Date / Time No Known Allergies Allergy Verified 10/31/23 09:04 Review of Systems Review of Systems: All systems reviewed & are unremarkable except as noted in HPI and below PMFSH Past Medical History Medical History Anxiety Arthritis Asthma Dysphagia Patient lost 80 lb in a year and half after choking food and thereafter she became frightened to eat. She had an extensive workup done at [place], [facility], and [place] and she now has a feeding tube for nutrition and she has gained back some weight. Gastroesophageal reflux Surgical History Surgical History History of benign breast biopsy History of cataract extraction with lens replacement History of section History of colonoscopy with polypectomy History of hysterectomy History of percutaneous endoscopic gastrostomy Family History Family History Mother No problems noted. Father Colon cancer Social History Social History Social History: Surrogate medical decision maker: Jalen Angela (spouse) or Shalini Barroso (daughter). Code status: Full code. 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 HEAD: normocephalic, atraumatic. EYES: PERRLA/EOMI, conjunctivae clear. NOSE: Normal no drainage EARS:TMS clear with good light reflex. THROAT: Suspected thrush on tongue. Patient would not let me complete oral exam NECK: Supple. No adenopathy, no masses. RESPIRATORY: Airway patent, respirations nonlabored. Clear to auscultation bilaterally, no rales, rhonchi, wheezing. CARDIOVASCULAR: Regular rate and rhythm without murmurs rubs or gallops. ABDOMINAL: Soft, nontender, nondistended, normal bowel sounds MUSCULOSKELETAL: Moves all extremities. Strength/ROM intact, No edema, No calf tenderness. NEURO: Alert. Cranial nerves II through XII intact. Good gait. Good coordination SKIN: Warm, dry. Normal
[2023-10-31] MEDS: LORazepam INJ (*CRX) 2 MG/ML VIAL 0.5 MG IV PUSH (10:18)
[2023-10-31] MEDS: SODIUM CHLORIDE 0.9% IV 1,000 ML 999 ML IV CONT (10:18)
--- NOTE | 2023-10-31 10:24 | PC.NURSE ---
Pt refused Strep swab. made aware.
[2023-10-31 10:26] LABS: Basophils Percent Auto 0.7 % (0.2-1.2); Eosinophils Absolute Auto 0.1 K/mm3 (0-0.3); Eosinophils Percent Auto 1.1 % (0-4.4); Hematocrit 40.4 % (37.0-47.0); Hemoglobin 12.7 g/dL (12.0-15.0); Immature Granulocyte Absolute 0.01 K/mm3 (0.00-0.031); Immature Granulocyte Percent A 0.2 % (0-0.5); Lymphocytes Absolute Auto 0.95 K/mm3 (0.9-3.2); Lymphocytes Percent Auto 17.7 % (18.3-44.2); Mean Corpuscular HGB Conc 31.4 g/dl (32-36); Mean Corpuscular Hemoglobin 29.8 pg (26-34); Mean Corpuscular Volume 94.8 fl (80-100); Mean Platelet Volume 9.5 fl (7.4-10.4); Monocytes Absolute Auto 0.4 K/mm3 (0.1-0.6); Neutrophils Absolute Auto 3.9 K/mm3 (1.3-6.7); Neutrophils Percent Auto 72.3 % (45.5-73.1); Platelet Count Result 264 k/mm3 (150-375); Red Blood Count 4.26 M/mm3 (4.2-5.4); Red Cell Distribution Width 13.4 % (11.5-14.5); White Blood Count 5.4 K/mm3 (4.5-10.0)
[2023-10-31 10:38] LABS: Alanine Aminotransferase 13 U/L (6-35); Albumin Level 4.1 g/dL (3.5-5.1); Alkaline Phosphatase 57 U/L (38-126); Anion Gap 4 mmol/L (8-16); Aspartate Amino Transferase 31 U/L (14-36); Bilirubin,Total 0.7 mg/dL (0.2-1.3); Blood Urea Nitrogen 17 mg/dL (7-17); Calcium 9.1 mg/dL (8.4-10.2); Carbon Dioxide 31 mmol/L (22-30); Chloride 101 mmol/L (98-107); Estimated Glomerular Filt Rate > 60; Glucose 86 mg/dL (65-110); Potassium 4.7 mmol/L (3.4-5.0); Sodium 136 mmol/L (137-145)
[2023-10-31 10:39] LABS: Influenza A QL RT-PCR Negative (Negative); Influenza B QL RT-PCR Negative (Negative); RSV RNA, RT-PCR Negative (Negative); SARS-CoV-2 RNA PCR Negative (Negative)
[2023-10-31] MEDS: NYSTATIN 100,000 UNITS/ML SUSP 5 ML ORAL.SUSP PO (11:31)
[2023-10-31 11:34] VITALS: BP 142/76; PULSE 69; RESP 14; TEMP 36.4; O2SAT 99
== END 2023-10-31 11:44 | disposition home or self-care (01) ==
PROVIDERS: Emergency Provider Emergency Medicine; PCP Internal Medicine
DX: R13.10 Dysphagia, unspecified (principal); B37.0 Candidal stomatitis; Z20.822 Contact with and (suspected) exposure to COVID-19; F41.9 Anxiety disorder, unspecified; M19.90 Unspecified osteoarthritis, unspecified site; J45.909 Unspecified asthma, uncomplicated
CPT/HCPCS: 36415; 70491; 80053; 85025; 87637; 96361; 96374; 99284; A9270; J2060; J7030; Q9967

== ENCOUNTER 2023-11-11 14:42 | Outpatient (CLI) | payer MEDICARE, SELFPAY ==
--- NOTE | ~2023-11-11 | XR_ITS ---
EXAM: XR soft tissue neck DATE: 11/11/2023 15:11 HISTORY: DYSPHAGIA . COMPARISON: CT soft tissue neck 10/31/2023. FINDINGS: Normal mineralization. No fracture or dislocation. No lytic or blastic lesion. Severe dege nerative change at the atlantodental interval and in the mid and lower cervical spine where there are multilevel prominent anterior osteophytes. Grade 1 dynamic listhesis at C2-3. Normal prevertebral so ft tissues. Calcified thyroid cartilage that is normal in appearance. Normal hyoid bone. Normal epigl ottis. Patent airways. Visualized aerated spaces in the skull are clear. Apices of the lungs are halley r. IMPRESSION: Severe cervical spine degenerative disc disease with prominent anterior osteophytes which may serve as a source for dysphasia in some patients. Grade 1 dynamic listhesis at C2-3. Reviewed, dictated and finalized at [facility]. ALLATION AND REPAIR TECHNICIAN IMPRESSION: Severe cervical spine degenerative disc disease with prominent ante rior osteophytes which may serve as a source for dysphasia in some patients. Gr marcelo 1 dynamic listhesis at C2-3.
== END 2023-11-11 14:43 | disposition home or self-care (01) ==
PROVIDERS: PCP Internal Medicine; Visit Provider Internal Medicine
DX: M50.321 Other cervical disc degeneration at C4-C5 level (principal); M50.322 Other cervical disc degeneration at C5-C6 level; M43.16 Spondylolisthesis, lumbar region; M25.78 Osteophyte, vertebrae
CPT/HCPCS: 70360

== ENCOUNTER 2023-11-19 10:37 | Emergency (ER) | payer MEDICARE, SELFPAY ==
[2023-11-19 10:40] VITALS: BP 143/81; PULSE 76; RESP 18; TEMP 36.6; O2SAT 98
--- NOTE | 2023-11-19 12:05 | ED.GENADULT ---
HPI - General Adult General Chief complaint: Unspecified Stated complaint: SOB Time Seen by Provider: 11/19/23 12:02 History of Present Illness HPI narrative: Patient is a 73 year old female here with sore throat. Patient's helps with history. 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 She has had issues since then. She quit eating, started losing excessive amounts of weight and has seen countless specialists in the [place] area. She has tube feeding which her performs without difficulty. Patient is scheduled to start ECT on Wednesday through . notes that this morning she woke up paranoid that she had some cardboard in her throat. She has multiple different stories but for a similar complaint over the years. He denies she swallowed anything. She called her PCP paranoid about this issue and they advised her to come into the ED for evaluation. Patient denies difficulty swallowing, difficulty breathing. has no concerns note that this is a similar complaint for her from prior. Related Data Home Medications Medication Instructions Recorded Confirmed escitalopram oxalate 20 mg tablet 20 mg PO DAILY 09/03/22 10/31/23 mirtazapine 15 mg tablet 15 mg PO DAILY 04/20/23 10/31/23 rosuvastatin 5 mg tablet 5 mg PO DAILY 07/27/23 10/31/23 clonazepam 0.5 mg tablet 0.25 mg PO QID 09/04/23 10/31/23 clonazepam 0.5 mg tablet 0.5 mg PO HS PRN Anxiety 09/04/23 10/31/23 olanzapine 5 mg tablet 5 mg PO BID 09/04/23 10/31/23 pantoprazole 40 mg granules 40 mg PO BID 09/04/23 10/31/23 delayed-release for susp in packet Allergies Allergy/AdvReac Type Severity Reaction Status Date / Time No Known Allergies Allergy Verified 11/19/23 11:16 Review of Systems Review of Systems: All systems reviewed & are unremarkable except as noted in HPI and below PMFSH Past Medical History Medical History Anxiety Arthritis Asthma Dysphagia Patient lost 80 lb in a year and half after choking food and thereafter she became frightened to eat. She had an extensive workup done at [facility], and [place] and she now has a feeding tube for nutrition and she has gained back some weight. Gastroesophageal reflux Surgical History Surgical History History of benign breast biopsy History of cataract extraction with lens replacement History of section History of colonoscopy with polypectomy History of hysterectomy History of percutaneous endoscopic gastrostomy Family History Family History Mother No problems noted. Father Colon cancer Social History Social History Social History: Surrogate medical decision maker: Jalen Angela (spouse) or Shalini Barroso (daughter). Code status: Full code. Smoking status: Never smoker Alcohol intake: former Substance use: never Substance use type: does not use Lack of Transportation: No Lack of Food: Never True Current Housing: I Have Housing Concerned About Future Housing: Decline to Answer Difficulty Paying Gas/Electric Bills: Decline to Answer Difficulty Paying for Meds: Decline to Answer Currently Unemployed: Decline to Answer Education: Master's Degree or Higher Difficulty w/ Childcare or Family Care: No Living arrangements: with family Occupation/Education: retired Additional occupation/education comments: Retired teacher. Spiritual care concerns: No Exam Narrative: GENERAL: Well-appearing, well-nourished, and in no acute distress. HEAD: Normocephalic, atraumatic. EYES: PERRLA and EOMI. ENT: Nares clear. Mucous membranes moist. No swelling to the posterior oropharynx, no erythema, no foreign body. NECK: Supple. CHEST: Clear to auscultation
[2023-11-19 12:57] VITALS: BP 140/80; PULSE 70; RESP 18; O2SAT 98
== END 2023-11-19 12:59 | disposition home or self-care (01) ==
PROVIDERS: Emergency Provider Student in an Organized Health Care Education/Training Program; PCP Internal Medicine
DX: R09.A2 Foreign body sensation, throat (principal); J45.909 Unspecified asthma, uncomplicated; K21.9 Gastro-esophageal reflux disease without esophagitis; M19.90 Unspecified osteoarthritis, unspecified site; F41.9 Anxiety disorder, unspecified; Z93.1 Gastrostomy status; Z96.1 Presence of intraocular lens; Z98.49 Cataract extraction status, unspecified eye; Z90.710 Acquired absence of both cervix and uterus
CPT/HCPCS: 99281

== ENCOUNTER 2023-11-19 19:08 | Emergency (ER) | payer MEDICARE, SELFPAY ==
--- NOTE | ~2023-11-19 | XR_ITS ---
XR soft tissue neck DATE: 11/20/2023 01:29 INDICATION: Foreign body sensation in neck TECHNIQUE: AP and lateral views of the neck COMPARISON: 11/11/2023 soft tissue neck examination FINDINGS: There is reversal cervical curvature. There is minimal anterolisthesis at C2-3. There is severe degenerative disc disease at C3-4, C4-5, C5-6 and C6-7. There is associated approxima tely 2.5 mm retrolisthesis at C3-4. No prevertebral soft tissue swelling. Normal epiglottis. No abnormal radiopaque foreign body of the neck is noted. IMPRESSION: Reversal cervical curvature and severe cervical spondylosis No abnormal radiopaque foreign body of the neck is detected Reviewed, dictated and finalized at location A. ANALYSIS
--- NOTE | ~2023-11-19 | XR_ITS ---
XR chest 2V DATE: 11/20/2023 01:29 INDICATION: Foreign body sensation in throat TECHNIQUE: AP and lateral views COMPARISON: 09/28/2023 AP and lateral chest FINDINGS: Heart size is within normal range. Mild aortic calcification and unfolding. No hilar or med iastinal enlargement. No pulmonary infiltrate or consolidation, pleural effusion or pulmonary vascular congestion or pneumo thorax is detected. Severe bilateral glenohumeral osteoarthritis with very prominent spurring. Scoliosis and degenerative change of the thoracic and lumbar spine. IMPRESSION: No active cardiopulmonary disease or significant change since 09/28/2023 Reviewed, dictated and finalized at location A. AGENT
[2023-11-19 19:17] VITALS: BP 131/78; PULSE 62; RESP 18; TEMP 36.6; O2SAT 98
--- NOTE | 2023-11-20 00:26 | ED.GENADULT ---
HPI - General Adult General Chief complaint: Unspecified <Lidia Brown PA-C - Last Filed: 11/20/23 03:24> Stated complaint: im choking <Lidia Brown PA-C - Last Filed: 11/20/23 03:24> Time Seen by Provider: 11/20/23 00:23 <Lidia Brown PA-C - Last Filed: 11/20/23 03:24> History of Present Illness HPI narrative: 73-year-old female reports with her daughter at bedside for evaluation for concerns for foreign body in her throat. Patient states she has been feeling like something is stuck in her throat all day. She has been seen in the emergency department multiple times for this complaint without any findings. The daughter provides the following history. The patient has been worked up outpatient for the past 2 years for foreign body sensation. She has been seen by GI, Neurology and Psychiatry. She has had EGDs, MRIs, esophageal manometry and more to evaluate for this issue without any explanations for the daughter.. This has been an ongoing issue for the past multiple years and has caused the patient to lose 100+ lb. Therefore, she had a PEG tube placed 1 year ago. The only food or drink she ingests her mouth is water, tea or vanilla ice cream. The daughter states that the patient called her a times throughout the night last night complaining of a foreign body sensation. She was seen earlier today for the same complaint. <Lidia Brown PA-C - Last Filed: 11/20/23 03:24> Related Data Home medications: Home Medications Medication Instructions Recorded Confirmed escitalopram oxalate 20 mg tablet 20 mg PO DAILY 09/03/22 10/31/23 mirtazapine 15 mg tablet 15 mg PO DAILY 04/20/23 10/31/23 rosuvastatin 5 mg tablet 5 mg PO DAILY 07/27/23 10/31/23 clonazepam 0.5 mg tablet 0.25 mg PO QID 09/04/23 10/31/23 clonazepam 0.5 mg tablet 0.5 mg PO HS PRN Anxiety 09/04/23 10/31/23 olanzapine 5 mg tablet 5 mg PO BID 09/04/23 10/31/23 pantoprazole 40 mg granules 40 mg PO BID 09/04/23 10/31/23 delayed-release for susp in packet <Lidia Brown PA-C - Last Filed: 11/20/23 03:24> Allergies/adverse reactions: Allergies Allergy/AdvReac Type Severity Reaction Status Date / Time No Known Allergies Allergy Verified 11/19/23 19:09 <Lidia Brown PA-C - Last Filed: 11/20/23 03:24> Review of Systems Review of Systems: CONSTITUTIONAL: Denies fever, chills, or sweats. EYES: Denies visual changes, redness, or discharge. ENT: see HPI CARDIOVASCULAR: Denies chest pain, palpitations, or edema. RESPIRATORY: Denies cough or dyspnea. GASTROINTESTINAL: Denies abdominal pain, nausea, vomiting, or diarrhea. GENITOURINARY: Denies dysuria or hematuria. SKIN: Denies rash or itching. MUSCULOSKELETAL: Denies back pain, joint pain, or myalgia. NEUROLOGIC: Denies headache, numbness, or weakness. PSYCHIATRIC: Denies anxiety or depression. <Lidia Brown PA-C - Last Filed: 11/20/23 03:24> PENDING SALE TO [facility] Past Medical History Medical History: Medical History Anxiety Arthritis Asthma Dysphagia Patient lost 80 lb in a year and half after choking food and thereafter she became frightened to eat. She had an extensive workup done at [place], [facility], and [place] and she now has a feeding tube for nutrition and she has gained back some weight. Gastroesophageal reflux <Lidia Brown PA-C - Last Filed: 11/20/23 03:24> Surgical History Surgical History: Surgical History History of benign breast biopsy History of cataract extraction with lens replacement History of section History of colonoscopy with polypectomy History of hysterectomy History of percutaneous endoscopic gastrostomy <Lidia Brown PA-C - Last Filed: 11/20/23 03:24> Family History Family History: Family History Mo
[2023-11-20 02:20] VITALS: BP 133/94; PULSE 84; O2SAT 100
== END 2023-11-20 02:22 | disposition home or self-care (01) ==
PROVIDERS: Emergency Provider Physician Assistant; PCP Internal Medicine
DX: R09.A2 Foreign body sensation, throat (principal); J45.909 Unspecified asthma, uncomplicated; K21.9 Gastro-esophageal reflux disease without esophagitis; M19.90 Unspecified osteoarthritis, unspecified site; F41.9 Anxiety disorder, unspecified; Z93.1 Gastrostomy status; Z96.1 Presence of intraocular lens; Z98.49 Cataract extraction status, unspecified eye; Z90.710 Acquired absence of both cervix and uterus; M47.812 Spondylosis without myelopathy or radiculopathy, cervical region
CPT/HCPCS: 70360; 71046; 99284

== ENCOUNTER 2023-11-25 08:07 | Emergency (ER) | payer MEDICARE, SELFPAY ==
[2023-11-25] VITALS (20 sets, daily range): BP systolic 105–130; BP diastolic 63–88; PULSE 55–74; RESP 12–37; TEMP 36.8; O2SAT 97–100
--- NOTE | ~2023-11-25 | XR_ITS ---
Clinical Indication: Chest pain PA and lateral views of the chest: Comparison: 11/20/2023 Findings: The lungs are clear, without evidence of focal consolidation or pleural effusion. Probable COPD. Cardiomediastinal silhouette is within normal limits. Advanced degenerative change of both edgar ohumeral joints noted. There are loose bodies at the proximal left shoulder region, possibly in the b iceps tendon sheath. Impression: Clear lungs. Probable COPD. Reviewed, dictated and finalized at location . [place] ANALYST Impression: Clear lungs. Probable COPD.
--- NOTE | 2023-11-25 08:08 | ECG_ITS ---
Measurements Intervals [place] Rate: 61 P: 53 CA: 147 QRS: 61 QRSD: 90 T: 67 QT: 442 QTc: 447 Interpretive Statements SINUS RHYTHM DELAYED PRECORDIAL R/S TRANSITION LOW QRS VOLTAGE IN LIMB LEADS BASELINE ARTIFACT- I, II, AVR, AVL BORDERLINE ECG COMPARED TO ECG 10/17/2023 11:16:04 NO SIGNIFICANT CHANGES Electronically Signed On 11-25-2023 8:53:49 EMBEDDED LINUX DEVELOPER by Johnathan Tang D.O.
--- NOTE | 2023-11-25 08:33 | ED.CHESTPAIN ---
HPI - Chest Pain General Chief Complaint: Chest Pain Stated Complaint: heart racing Time Seen by Provider: 11/25/23 08:11 patient is a 73-year-old female who presents ER with reports of anxiety/ palpitations. Reports she woke up this morning and felt a burning chest discomfort going into her throat. Feels similar to her acid reflux. Reports compliance with her pantoprazole. Patient also reports feeling like she could not swallow though she was able to drink a glass of water. Patient has chronic anxiety and concern for difficulty swelling. She has a G-tube due to weight loss. She is undergoing ECT treatments 3 days a week. Last treatment was yesterday. Denies having an oral airway placed. She did not take her anxiety medications this morning. Related Data Home Medications Medication Instructions Recorded Confirmed escitalopram oxalate 20 mg tablet 20 mg PO DAILY 09/03/22 10/31/23 mirtazapine 15 mg tablet 15 mg PO DAILY 04/20/23 10/31/23 rosuvastatin 5 mg tablet 5 mg PO DAILY 07/27/23 10/31/23 clonazepam 0.5 mg tablet 0.25 mg PO QID 09/04/23 10/31/23 clonazepam 0.5 mg tablet 0.5 mg PO HS PRN Anxiety 09/04/23 10/31/23 olanzapine 5 mg tablet 5 mg PO BID 09/04/23 10/31/23 pantoprazole 40 mg granules 40 mg PO BID 09/04/23 10/31/23 delayed-release for susp in packet Allergies Allergy/AdvReac Type Severity Reaction Status Date / Time No Known Allergies Allergy Verified 11/19/23 19:09 [facility] Past Medical History Medical History Anxiety Arthritis Asthma Dysphagia Patient lost 80 lb in a year and half after choking food and thereafter she became frightened to eat. She had an extensive workup done at [place], [facility], and [place] and she now has a feeding tube for nutrition and she has gained back some weight. Gastroesophageal reflux Surgical History Surgical History History of benign breast biopsy History of cataract extraction with lens replacement History of section History of colonoscopy with polypectomy History of hysterectomy History of percutaneous endoscopic gastrostomy Family History Family History Mother No problems noted. Father Colon cancer Social History Social History Social History: Surrogate medical decision maker: Jalen Angela (spouse) or Shalini Barroso (daughter). Code status: Full code. Smoking status: Never smoker Alcohol intake: former Substance use: never Substance use type: does not use Lack of Transportation: No Lack of Food: Never True Current Housing: I Have Housing Concerned About Future Housing: Decline to Answer Difficulty Paying Gas/Electric Bills: Decline to Answer Difficulty Paying for Meds: Decline to Answer Currently Unemployed: Decline to Answer Education: Master's Degree or Higher Difficulty w/ Childcare or Family Care: No Living arrangements: with family Occupation/Education: retired Additional occupation/education comments: Retired teacher. Spiritual care concerns: No Exam Narrative: GENERAL: frail-appearing and in no acute distress. HEAD: Normocephalic, atraumatic. old bruise beneath the right eye. ENT: Mucous membranes moist. NECK: Supple. CHEST: Clear to auscultation. No respiratory distress. HEART: Regular rate and rhythm. Normal peripheral pulses. ABDOMEN: Soft, nontender, nondistended, Normal appearing G-tube site. EXTREMITIES: Normal range of motion. No edema. SKIN: Warm, dry, no rash. NEURO: Alert and oriented x3. PSYCH: Normal mood and affect. Course Course Emergency Course: Patient resting comfortably. Troponin negative x2. Patient given reassurance. Discharged. Vital Signs Vital signs: Vital Signs Temperature 98.2 F 11/25/23 08:23 Pulse R
[2023-11-25] MEDS: BELLADONNA ALK/PHENOB ELIX 10 ML, MAG HYDROX/ALUMINUM HYD/SIMETH 30 ML, LIDOCAINE HCL 2... PO (08:39)
[2023-11-25] MEDS: ALPRAZolam (*CRX) 0.25 MG TABLET PO (08:39)
[2023-11-25 08:41] LABS: Basophils Percent Auto 0.5 % (0.2-1.2); Eosinophils Percent Auto 0.6 % (0-4.4); Hematocrit 44.6 % (37.0-47.0); Hemoglobin 13.8 g/dL (12.0-15.0); Immature Granulocyte Absolute 0.02 K/mm3 (0.00-0.031); Immature Granulocyte Percent A 0.3 % (0-0.5); Lymphocytes Absolute Auto 0.98 K/mm3 (0.9-3.2); Lymphocytes Percent Auto 15.7 % (18.3-44.2); Mean Corpuscular HGB Conc 30.9 g/dl (32-36); Mean Corpuscular Hemoglobin 29.9 pg (26-34); Mean Corpuscular Volume 96.7 fl (80-100); Mean Platelet Volume 9.9 fl (7.4-10.4); Monocytes Absolute Auto 0.3 K/mm3 (0.1-0.6); Monocytes Percent Auto 5.3 % (2.6-8.5); Neutrophils Absolute Auto 4.8 K/mm3 (1.3-6.7); Neutrophils Percent Auto 77.6 % (45.5-73.1); Platelet Count Result 247 k/mm3 (150-375); Red Blood Count 4.61 M/mm3 (4.2-5.4); Red Cell Distribution Width 14.5 % (11.5-14.5); White Blood Count 6.2 K/mm3 (4.5-10.0)
[2023-11-25 08:52] LABS: Prothrombin Time 13.4 Seconds (11.1-14.7)
[2023-11-25 08:53] LABS: Partial Thromboplastin Time 28.5 SECONDS (22.3-36.8)
[2023-11-25 08:55] LABS: Alanine Aminotransferase 19 U/L (6-35); Alkaline Phosphatase 74 U/L (38-126); Anion Gap 1 mmol/L (8-16); Aspartate Amino Transferase 27 U/L (14-36); Bilirubin,Total 0.5 mg/dL (0.2-1.3); Blood Urea Nitrogen 24 mg/dL (7-17); Calcium 9.3 mg/dL (8.4-10.2); Carbon Dioxide 37 mmol/L (22-30); Chloride 102 mmol/L (98-107); Estimated CRCL calculation 50 ml/min; Estimated Glomerular Filt Rate > 60; Glucose 119 mg/dL (65-110); Lipase 84 U/L (23-300); Potassium 4.3 mmol/L (3.4-5.0); Sodium 140 mmol/L (137-145)
[2023-11-25 09:08] LABS: Troponin I < 0.012 ng/mL (0.000-0.034)
[2023-11-25 11:33] LABS: Troponin I < 0.012 ng/mL (0.000-0.034)
== END 2023-11-25 12:28 | disposition home or self-care (01) ==
PROVIDERS: Emergency Provider Emergency Medicine; PCP Internal Medicine
DX: R00.2 Palpitations (principal); F41.9 Anxiety disorder, unspecified; K21.9 Gastro-esophageal reflux disease without esophagitis; J45.909 Unspecified asthma, uncomplicated; M19.90 Unspecified osteoarthritis, unspecified site; Z96.1 Presence of intraocular lens; Z98.49 Cataract extraction status, unspecified eye; Z90.710 Acquired absence of both cervix and uterus
CPT/HCPCS: 36415; 71046; 80053; 83690; 84484; 85025; 85610; 85730; 93005; 99284; A9270

== ENCOUNTER 2025-10-19 20:42 | Emergency (ER) | payer MEDICARE, SELFPAY ==
--- OUTSIDE RECORDS SUMMARY | 2025-10-18 05:36 | XMS_ITS | Encounter Summary ---
Author Organization [facility] Address [address] [place] [address] Care Team Providers Care Neuroscientist Name Role Phone Jc Ledesma MD Primary Care Provider [phone] Patric Jaime DPT Unavailable [phone] Reason for Visit * Procedure (Routine) - Authorized Specialty Diagnoses / Procedures Referred By Contac t Referred To Contact Psychiatry Diagnoses Current severe episode of major depressive disorder without psychotic features without prior episode (HCC) Procedures [place] ELECTROCONVULSIVE THERAPY Savannah Dutta MD Phone: tel: fax: [facility] (All Locations) Referral ID Status Reason Start Date Expiration Date Visits Requested Visits Authorized [id number] Authorized Specialty Services Required 3 10/31/2025 99 99 Encounter Details Date Type Department Care Team (Late st Contact Info) Description 10/18/2025 5:36 AM INSTRUMENT TECH - 10/18/2025 11:59 PM INSTRUMENT TECH Hospital Encounter [facility] [address] [place] [address] Savannah Dutta MD [address] [phone] Christine Fraire MD [address] [place] [address] Major depressive disorder with psychotic features (HCC) (Primary Dx) Discharge Disposition: Discharge to home or self care Social History Tobacco Use Types Packs/Day Years Used Date Smoking Tobacco: Never Smokeless Tobacco: Never Alcohol Use Standard Drinks/Week Comments Yes 1 (1 standard drink = 0.6 oz pur e alcohol) AUDIT-C Answer Date Recorded Q1: How often do you have a drink containing alc ohol? 2-4 times a month 07/12/2025 Q2: How many drinks containi ng alcohol do you have on a typical day when you are drinking? 1 or 2 07/12/2025 Q3: How often do you have si x or more drinks on one occasion? Never 07/12/2025 Personal Safety Answer Date Recorded Have you ever been in or are you currently in a harmful physical or emotional relationship or is someone making you feel afraid or unsafe? Denies 07/12/2025 Comments No Sex and Gender Information Value Date Recorded Sex Assigned at Not on file Legal Sex Female 12:25 AM INSTRUMENT TECH Gender Identity Female 07/01/2022 4:06 PM CDT Sexual Orientation Not on file documented as of this encounter Last Filed Vital Signs Vital Sign Reading Time Taken Comments Blood Pressure 132/72 10/18/2025 9:08 AM INSTRUMENT TECH Pulse 98 10/18/2025 9:08 AM INSTRUMENT TECH Temperature 36.3 C (97.3 F) 10/18/2025 7:14 AM INSTRUMENT TECH Respiratory Rate 18 10/18/2025 9:08 AM INSTRUMENT TECH Oxygen Saturation 93% 10/18/2025 9:08 AM INSTRUMENT TECH Inhaled Oxygen Concentration - - Weight - - Height - - Body Mass Index - - documented in this encounter Functional Status * [place] Fall Risk Question Answer Date of Assessment Author History of Falling 0 10/18/2025 7:29 AM INSTRUMENT TECH Georgia Ridley RN Secondary Diagnosis 0 10/18/2025 7:29 AM CS Georgia Robles RN Ambulatory Aids 0 10/18/2025 7:29 AM INSTRUMENT TECH Wi Georgia honeycutt RN Intravenous Therapy/Heparin/Saline Lock 0 10/18/2025 7:29 AM Xavier Sullivan RN Gait/Transferring 0 10/18/2025 7:29 AM Georgia Sullivan RN Mental Status 0 10/18/2025 7:29 AM Georgia Silva RN Morse Fall Risk Score (Score >= 45 places fall precaution order) 0 10/18/2025 7:29 AM Georgia Sullivan RN Prior Fall Event (Autopopulated from EMR) None found 10/18/2025 7:29 AM Samia Sullivan RN * Integumentary Question Answer Date of Assessment Author Integumentary (WDL) WDL 10/18/2025 7:31 AM Georgia Rincon RN * Vital Signs Question Answer Date of Assessment Author BP Location Left arm 10/18/2025 9:08 AM Christie Mcpherson RN BP Method Automatic 10/18/2025 9:08 AM Christie Mcpherson RN MAP (mmHg) 87 10/18/2025 9:08 AM Christie Mcpherson RN * Vital Signs Question Answer Date of Assessment Author BP Location Left arm 10/18/2025 9:08 AM Christie Mcpherson RN BP Method Automatic 10/18/2025 9:08 AM Christie Mcpherson RN documented as of this encounter Mental Status * Orientation Question Answer Entry Date Author Person Yes 10/18/2025 7:31 AM [address] RN [address] Yes 10/18/2025 7:31 AM Georgia Ochoa RN Time Yes 10/18/2025 7:31 AM Georgia Ochoa RN Situation Yes 10/18/2025 7:31 AM Georgia Ochoa RN * Neurological Question Answer Entry Date Author Level of Consciousness Alert;Awake 9:08 AM Christie Calhoun RN Orientation Oriented X4 (person, place, time, situation) 10/18/2025 9:08 AM Christie Calhoun RN Neuro ([facility] 10/18/2025 9:08 AM Christie Calhoun RN Neuro ([facility]) [facility] 10/18/2025 9:08 AM Christie Calhoun RN documented in this encounter Discharge Instructions * Discharge Instructions* Georgia Ridley RN - 10/18/2025 5:42 AM INSTRUMENT TECH FOLLOWING ECT: Activity: Stay in the wheelchair until you reach your vehicle. Do not drive, operate machinery, or use power tools for the next 24 hours. Diet: Return to your usual diet; however, do not drink alcohol for the next 24 hours. Medications: Resume your usual medicines. Special Instructions After ECT: You my have temporary confusion, memory loss or dizziness after ECT. Be careful to prevent injury while you recover from ECT. Do not sign any important papers or make important decision for the next 24 hours. Call Your Doctor or Seek Care Immediately: If you have a headache that does not get better after taking your usual pain-reliever. If you develop any other conditions that you believe could be related to ECT. If you have any questions, please call ECT at [phone] BEFORE YOUR NEXT ECT: Do not eat or drink anything after midnight the night before ECT. Do not drink alcohol for 24 hours before treatment. Do not take any medications on the morning of ECT unless instructed by your doctor. Remove jewelry before leaving home. Bring a list of your current medications with you. If you use an inhaler, bring it with you. When you arrive, take the [facility] to the 15th floor of the [facility]. An adult escort must accompany you to and from ECT. Waiting time for your escort is about 2 hours. Escorts may go to the cafeteria but may not leave the hospital. You cannot have ECT if you arrive without an escort. This sheet provides general information only. It should not be used in place of advice, instruction, or treatment given by your doctor or other health career development coordinator. I understand and have received the instructions given to me: Patient Signature: Date: 10/18/2025 Time: Nurse Signature: Date: 10/18/2025 Time: RUMENT TECH documented in this encounter Medications at Time of Discharge acetaminophen (TYLENOL) 325 mg tablet Take 2 tablets (650 mg total) by mouth every 4 (four) hours as needed for pain, headaches or fever 30 tablet 12/16/2021 cetirizine (ZyrTEC) 10 mg tabletIndication s:allergies Take 1 tablet (10 mg total) by mouth daily as needed for allergies fluticasone propionate (FLONASE) 50 mcg/actuation nasal spray Use 2 spray(s) in each nostril once daily 16 g 1 07/31/2024 mirtazapine (REMERON) 15 mg tablet Take 1 tablet by mouth nightly 30 tablet 11 09/03/2025 multivit-mineral s/folic acid (MULTIVITAMIN GUMMIES ORAL)Indications :supplement Take 2 tablet/chew tab by mouth every morning pantoprazole (PROTONIX) [address] for susp in packet MIX 1 PACKET IN 8 OZ OF WATER AND DRINK BY MOUTH TWICE DAILY 180 packet 3 05/18/2025 rosuvastatin (CRESTOR) 5 mg tablet Take 1 tablet by mouth once daily 90 tablet 3 05/16/2025 venlafaxine (EFFEXOR) 75 mg tablet Take 1 tablet by mouth twice daily 60 tablet 11 11/22/2024 documented as of this encounter Discharge Disposition Disposition Code Departure Means Destination Discharge to home or self care documented in this encounter Procedure Notes * Sukhwinder Lewis MD - 10/18/2025 7:40 AM CSTAssociated Order(s): ELECTROCONVULSIVE THERAPY Psychiatry Outpatient ECT 30-Day H&P and Pre-Procedure Note Pre-Procedure Procedure: ECT outpatient Court Ordered : No Preprocedure Diagnosis: Major Depressive Disorder Prior # of ECTs this course: 48 This Treatment is unilateral Unilateral # 49 Bilateral # 0 Bifrontal # 0 Treatment # Date Laterality Charge Frequency 11/22/2023 RUL 5%, titration 3 times weekly 11/24/2023 RUL 30% 3 times weekly 11/26/2023 RUL 30% 3 times weekly 11/29/2023 RUL 30% 3 times weekly 12/01/2023 RUL 30% 3 times weekly 12/03/2023 RUL 30% 3 times weekly 12/06/2023 RUL 30% 2 times weekly 12/09/2023 RUL 30% 2 times weekly 12/13/2023 RUL 30% 2 times weekly 12/15/2023 RUL 30% 2 times weekly 12/20/2023 RUL 30% Weekly 12/27/2023 RUL 30% Weekly 01/03/2024 RUL 30% Weekly 01/10/2024 RUL 30% Weekly 01/24/2024 RUL 30% Every other week 02/07/2024 RUL 30% Every other week 03/06/2024 RUL 30% Monthly 03/29/2024 RUL 30% Every 3 weeks (after c/o dysphagia) 04/17/2024 RUL 30% Every 3 weeks 05/08/2024 RUL 30% Every 3 weeks 05/29/2024 RUL 30% Every 3 weeks 06/19/2024 RUL 100% (worsening anxiety, somatic delusions) Every 3 weeks -> q2w 07/05/24 RUL 100% Every 2 weeks 07/17/24 RUL 100% Every 2 weeks 07/31/24 RUL 100% 2x/wk (Dr. Wong rec acute course d/t worsening depression sx) 08/02/24 RUL 100% 2x/wk 08/07/24 RUL 100% 2x/wk 08/10/24 RUL 100% 2x/wk 08/14/24 RUL 100% 2x/wk 08/17/24 RUL 100% 2x/wk 08/21/24 RUL 100% 2x/wk -> weekly 08/31/24 RUL 100% weekly 09/07/24 RUL 100% Weekly 09/14/24 RUL 100% Weekly 09/21/24 RUL 100% Weekly-> q2 weeks 10/05/24 RUL 100% Q2 Weeks 10/19/24 RUL 100% Q2 weeks 11/02/23 RUL 100% Q2w -> monthly 11/30/23 RUL 100% Monthly 12/29/24 RUL 100% Monthly 01/25/25 RUL 100% Monthly 02/22/25 RUL 100% Monthly 03/29/25 RUL 100% Monthly 04/26/25 RUL 100% Monthly 05/24/25 RUL 100% Monthly 06/21/25 RUL 100% Monthly 07/19/25 RUL 100% Monthly 08/16/25 RUL 100% Monthly 09/20/25 RUL 100% Monthly 10/18/25 RUL 100% Monthly CHIEF COMPLAINT: MDD INTERVAL HISTORY: Patient reports that she is feeling good. Has been doing well in the interim, denied SI, HI, AVH and endorsed minor chronic right leg pain she is seeing her PCP about. She remarks that she is grateful for ECT treatment and that it is saved her life. PAST MEDICAL HISTORY: Past Medical History: Diagnosis Date Allergic Anxiety Awareness under anesthesia durilng colonoscopy had to get dosed a second time. Depression GERD (gastroesophageal reflux disease) Motion sickness Thyroid lesion biopsied in 2021, benign/cystic Past Surgical History: Procedure Laterality Date SECTION COLONOSCOPY ESOPHAGOGASTRODUODENOSCOPY HYSTERECTOMY IR G TUBE PLACEMENT PERCUTANEOUS N/A 12/07/2022 ALLERGIES: No Known Allergies MEDICATIONS: Prior to Admission medications Medication Sig Start Date End Date Taking? Authorizing Provider acetaminophen (TYLENOL) 325 mg tablet Take 2 tablets (650 mg total) by mouth every 4 (four) hours as needed for pain, headaches or fever Patient taking differently: Take 2 tablets (650 mg total) by mouth every 4 (four) hours as needed for pain, headaches or fever 12/16/21 Jonh Mauricio MD cetirizine (ZyrTEC) 10 mg tablet Take 1 tablet (10 mg total) by mouth daily as needed for allergiesProviderSera MD fluticasone propionate (FLONASE) 50 mcg/actuation nasal spray Use 2 spray(s) in each nostril once daily Patient taking differently: Administer 1 spray into each nostril daily as needed for allergies 07/31/24 Jc Ledesma MD mirtazapine (REMERON) 15 mg tablet Take 1 tablet by mouth nightly 09/03/25 Kate Royal NP multivit-minerals/folic acid (MULTIVITAMIN GUMMIES ORAL) Take 2 tablet/chew tab by mouth every morning Sera Jin MD pantoprazole (PROTONIX) [address] for susp in packet MIX 1 PACKET IN 8 OZ OF WATER AND DRINK BY MOUTH TWICE DAILY Patient taking differently: Take 1 packet (40 mg total) by mouth 2 (two) times a day Takes twice daily mixed in applesauce 05/18/25 Jc Ledesma MD rosuvastatin (CRESTOR) 5 mg tablet Take 1 tablet by mouth once daily Patient taking differently: Take 1 tablet (5 mg total) by mouth every morning 05/16/25 KevinL. Ledesma MD venlafaxine (EFFEXOR) 75 mg tablet Take 1 tablet by mouth twice daily Patient taking differently: Take 1 tablet (75 mg total) by mouth 2 (two) times a day 11/22/24 Kate Royal NP REVIEW OF SYSTEMS: Review of systems per HPI and otherwise all systems are negative PHYSICAL EXAM: Vitals: Vitals: 10/18/25 0908 BP: 132/72 Pulse: 98 Resp: 18 Temp: SpO2: 93% General: NAD, lying comfortably in bed. HEENT: Normocephalic, EOMI, sclerae anicteric Neck: Supple, normal ROM Pulm: Normal work of breathing, no wheezing or coughing during interview Extremities: Warm, dry with no cyanosis. Skin: No observable rashes on exam Neuro: A&Ox4, CN II-XII grossly intact Psych: Normal mood and affect MENTAL STATUS EXAM: General: Calm, cooperative, good eye contact. No bizarre behavior. Speech: Regular rate and rhythm, normal volume, amount, latency, and tone. Flow of Thought: Logical, sequential, and goal-directed Content of Thought: No suicidal or homicidal ideation. No hallucinations or delusions. Mood: good Affect: Euthymic with normal range. Insight:good Judgement: good Sensorium:Alert and oriented x 3. Attention intact to conversation. Memory: normal based on conversation/exam LABORATORY/DIAGNOSTIC DATA REVIEW: Laboratory review: Lab results in the last 24 hours: No results found for this or any previous visit (from the past 24 hours). QIDS-SR:0 ASSESSMENT/PLAN: Diagnosis: MDD Additional Attending Comments: I identified myself to the patient as the Attending performing theirtreatment, personally consented the patient, and answered any question they had about receiving ECT. Procedure Note TIME OUT Attestation Prior to the start of the procedure, verbal verification by the procedure participant(s) confirmed (as applicable): correct patient identity, agreement on the procedure to be done; correct patient positioning; an accurate procedure consent form, relevant images and results correctly labeled and displayed; any safety precautions based on clinical history and/or medication use have been addressed. Medication Plan: Medication: Dose: Etomidate 16 mg IV Methohexital 0 mg IV Ketamine 0 mg IV succinylcholine 30 mg IV ondansetron 4 mg IV ketorolac 0 mg IV sumatriptan 0 mg SubQ glycopyrrolate 0 mg IV Labetalol 5 mg + 5 mg PRN given for HTN 08/16/25 Midazolam 1mg for post anesthesia delirium No additional medications planned Thymatron Treatment Parameters: Right Unilateral: Charge: 100% Pulse Width: 0.25 msec Frequency: 140 Hz Titration: [] YES Bite block placed: Yes Peripheral seizure duration: 35 sec EEG seizure duration: 62 sec Comments: none Post Procedure: Attending Psychiatrist: Dr. Mora Assistants: Dr. Sukhwinder Lewis Post Procedure Diagnosis: Same Name of Procedure: Electroconvulsive Therapy (ECT) Description of the Procedure Findings: none Estimated Blood Loss: none Specimens Removed: none Complications: none Comments: none Condition on leaving ECT recovery: stable Cosigned by Savannah Dutta MD at 10/19/2025 12:48 PM INSTRUMENT TECH RUMENT TECH RUMENT TECH Associated attestation - Savannah Dutta MD - 10/19/2025 12:48 PM INSTRUMENT TECH I was present for the entire procedure. documented in this encounter Miscellaneous Notes * Plan of Care - Georgia Ridley RN - 10/18/2025 7:40 AM CST Goals: Summary: Problem: Electroconvulsive Therapy (ECT) Goal: LTG: Verbalizes reduction in symptoms requiring ECT Outcome: Progressing Goal: STG: Understand benefits of ECT Outcome: Progressing Goal: STG: Tolerate ECT treatment Outcome: Progressing RUMENT TECH documented in this encounter Plan of Treatment Not on file documented as of this encounter Procedures Procedure Name Priority Date/Time Associated Diagnosis Comments ELECTROCONVULSIVE THERAPY Routine 2024 7:40 AM INSTRUMENT TECH Major depressive disorder with psychotic features (HCC) documented in this encounter Results * Electroconvulsive therapy (10/18/2025 7:40 AM INSTRUMENT TECH) Narrative Savannah Dutta MD - 10/18/2025 7:40 AM INSTRUMENT TECH Savannah Dutta MD 10/19/2025 12:48 PM Psychiatry Outpatient ECT 30-Day H&P and Pre-Procedure Note Pre-Procedure Procedure: ECT outpatient Court Ordered : No Preprocedure Diagnosis: Major Depressive Disorder Prior # of ECTs this course: 48 This Treatment is unilateral Unilateral # 49 Bilateral # 0 Bifrontal # 0 Treatment # Date Laterality Charge Frequency 11/22/2023 RUL 5%, titration 3 times weekly 11/24/2023 RUL 30% 3 times weekly 11/26/2023 RUL 30% 3 times weekly 11/29/2023 RUL 30% 3 times weekly 12/01/2023 RUL 30% 3 times weekly 12/03/2023 RUL 30% 3 times weekly 12/06/2023 RUL 30% 2 times weekly 12/09/2023 RUL 30% 2 times weekly 12/13/2023 RUL 30% 2 times weekly 12/15/2023 RUL 30% 2 times weekly 12/20/2023 RUL 30% Weekly 12/27/2023 RUL 30% Weekly 01/03/2024 RUL 30% Weekly 01/10/2024 RUL 30% Weekly 01/24/2024 RUL 30% Every other week 02/07/2024 RUL 30% Every other week 03/06/2024 RUL 30% Monthly 03/29/2024 RUL 30% Every 3 weeks (after c/o dysphagia) 04/17/2024 RUL 30% Every 3 weeks 05/08/2024 RUL 30% Every 3 weeks 05/29/2024 RUL 30% Every 3 weeks 06/19/2024 RUL 100% (worsening anxiety, somatic delusions) Every 3 weeks -> q2w 07/05/24 RUL 100% Every 2 weeks 07/17/24 RUL 100% Every 2 weeks 07/31/24 RUL 100% 2x/wk (Dr. Marvin cole acute course d/t worsening depression sx) 08/02/24 RUL 100% 2x/wk 08/07/24 RUL 100% 2x/wk 08/10/24 RUL 100% 2x/wk 08/14/24 RUL 100% 2x/wk 08/17/24 RUL 100% 2x/wk 08/21/24 RUL 100% 2x/wk -> weekly 08/31/24 RUL 100% weekly 09/07/24 RUL 100% Weekly 09/14/24 RUL 100% Weekly 09/21/24 RUL 100% Weekly-> q2 weeks 10/05/24 RUL 100% Q2 Weeks 10/19/24 RUL 100% Q2 weeks 11/02/23 RUL 100% Q2w -> monthly 11/30/23 RUL 100% Monthly 12/29/24 RUL 100% Monthly 01/25/25 RUL 100% Monthly 02/22/25 RUL 100% Monthly 03/29/25 RUL 100% Monthly 04/26/25 RUL 100% Monthly 05/24/25 RUL 100% Monthly 06/21/25 RUL 100% Monthly 07/19/25 RUL 100% Monthly 08/16/25 RUL 100% Monthly 09/20/25 RUL 100% Monthly 10/18/25 RUL 100% Monthly CHIEF COMPLAINT: MDD INTERVAL HISTORY: Patient reports that she is feeling good. Has been doing well in the interim, denied SI, HI, AVH and endorsed minor chronic right leg pain she is seeing her PCP about. She remarks that she is grateful for ECT treatment and that it is saved her life. PAST MEDICAL HISTORY: Past Medical History: Diagnosis Date Allergic Anxiety Awareness under anesthesia durilng colonoscopy had to get dosed a second time. Depression GERD (gastroesophageal reflux disease) Motion sickness Thyroid lesion biopsied in 2021, benign/cystic Past Surgical History: Procedure Laterality Date SECTION COLONOSCOPY ESOPHAGOGASTRODUODENOSCOPY HYSTERECTOMY IR G TUBE PLACEMENT PERCUTANEOUS N/A 12/07/2022 ALLERGIES: No Known Allergies MEDICATIONS: Prior to Admission medications Medication Sig Start Date End Date Taking? Authorizing Provider acetaminophen (TYLENOL) 325 mg tablet Take 2 tablets (650 mg total) by mouth every 4 (four) hours as needed for pain, headaches or fever Patient taking differently: Take 2 tablets (650 mg total) by mouth every 4 (four) hours as needed for pain, headaches or fever 12/16/21 Jonh Mauricio MD cetirizine (ZyrTEC) 10 mg tablet Take 1 tablet (10 mg total) by mouth daily as needed for allergies Sera Jin MD fluticasone propionate (FLONASE) 50 mcg/actuation nasal spray Use 2 spray(s) in each nostril once daily Patient taking differently: Administer 1 spray into each nostril daily as needed for allergies 07/31/24 Jc Ledesma MD mirtazapine (REMERON) 15 mg tablet Take 1 tablet by mouth nightly 09/03/25 Kate Royal NP multivit-minerals/folic acid (MULTIVITAMIN GUMMIES ORAL) Take 2 tablet/chew tab by mouth every morning ProviderSera MD pantoprazole (PROTONIX) [address] for susp in packet MIX 1 PACKET IN 8 OZ OF WATER AND DRINK BY MOUTH TWICE DAILY Patient taking differently: Take 1 packet (40 mg total) by mouth 2 (two) times a day Takes twice daily mixed in applesauce 05/18/25 Jc Ledesma MD rosuvastatin (CRESTOR) 5 mg tablet Take 1 tablet by mouth once daily Patient taking differently: Take 1 tablet (5 mg total) by mouth every morning 05/16/25 Jc Ledesma MD venlafaxine (EFFEXOR) 75 mg tablet Take 1 tablet by mouth twice daily Patient taking differently: Take 1 tablet (75 mg total) by mouth 2 (two) times a day 11/22/24 Kate Royal NP REVIEW OF SYSTEMS: Review of systems per HPI and otherwise all systems are negative PHYSICAL EXAM: Vitals: Vitals: 10/18/25 0908 BP: 132/72 Pulse: 98 Resp: 18 Temp: SpO2: 93% General: NAD, lying comfortably in bed. HEENT: Normocephalic, EOMI, sclerae anicteric Neck: Supple, normal ROM Pulm: Normal work of breathing, no wheezing or coughing during interview Extremities: Warm, dry with no cyanosis. Skin: No observable rashes on exam Neuro: A&Ox4, CN II-XII grossly intact Psych: Normal mood and affect MENTAL STATUS EXAM: General: Calm, cooperative, good eye contact. No bizarre behavior. Speech: Regular rate and rhythm, normal volume, amount, latency, and tone. Flow of Thought: Logical, sequential, and goal-directed Content of Thought: No suicidal or homicidal ideation. No hallucinations or delusions. Mood: good Affect: Euthymic with normal range. Insight:good Judgement: good Sensorium:Alert and oriented x 3. Attention intact to conversation. Memory: normal based on conversation/exam LABORATORY/DIAGNOSTIC DATA REVIEW: Laboratory review: Lab results in the last 24 hours: No results found for this or any previous visit (from the past 24 hours). QIDS-SR:0 ASSESSMENT/PLAN: Diagnosis: MDD Additional Attending Comments: I identified myself to the patient as the Attending performing their treatment, personally consented the patient, and answered any question they had about receiving ECT. Procedure Note TIME OUT Attestation Prior to the start of the procedure, verbal verification by the procedure participant(s) confirmed (as applicable): correct patient identity, agreement on the procedure to be done; correct patient positioning; an accurate procedure consent form, relevant images and results correctly labeled and displayed; any safety precautions based on clinical history and/or medication use have been addressed. Medication Plan: Medication: Dose: Etomidate 16 mg IV Methohexital 0 mg IV Ketamine 0 mg IV succinylcholine 30 mg IV ondansetron 4 mg IV ketorolac 0 mg IV sumatriptan 0 mg SubQ glycopyrrolate 0 mg IV Labetalol 5 mg + 5 mg PRN given for HTN 08/16/25 Midazolam 1mg for post anesthesia delirium No additional medications planned Thymatron Treatment Parameters: Right Unilateral: Charge: 100% Pulse Width: 0.25 msec Frequency: 140 Hz Titration: [] YES Bite block placed: Yes Peripheral seizure duration: 35 sec EEG seizure duration: 62 sec Comments: none Post Procedure: Attending Psychiatrist: Dr. Mora Assistants: Dr. Sukhwinder Lewis Post Procedure Diagnosis: Same Name of Procedure: Electroconvulsive Therapy (ECT) Description of the Procedure Findings: none Estimated Blood Loss: none Specimens Removed: none Complications: none Comments: none Condition on leaving ECT recovery: stable us Jameson Robles MD BEHAVIORAL HEALTH ORDERABL ES Final Result documented in this encounter Visit Diagnoses Diagnosis Major depressive disorder with psychotic features (HCC)- Primary documented in this encounter Orders Medications Ordered That Melo ht Not Have Been Administered Count Last Ordered Date First Ordered Date sodium chloride 0.9% flush 0.5-20 mL 1 10/01 Nursing Count Last Ordered Date First Orde red Date VITAL SIGNS 2 10/18/2025 IV Count Last Ordered Date First Orde red Date DISCONTINUE IV 1 10/18/2025 INSERT PERIPHERAL IV 1 10/18/2025 Discharge Count Last Ordered Date First Orde red Date DISCHARGE PATIENT 1 10/18/2025 ADT Patient Update Count Last Ordered Date Firs t Ordered Date ECT PATIENT TRANSFER TO PACU 1 10/18/2025 documented in this encounter Care Teams Neuroscientist Relationship Specialty Start Date End Date Jc Ledesma MD PCP - General Internal Medicine 09/10/20 Patric Jaime DPT [id number] [facility] [address] [place] [address] Physical Therapist Physical Therapy 03/19/23 documented as of this encounter
--- OUTSIDE RECORDS SUMMARY | 2025-10-18 08:19 | XMS_ITS | Encounter Summary ---
Author Organization [facility] Healthcare Address [address] [place] [address] Care Team Providers Care Delimber Operator Name Role Phone Jc Ledesma MD Primary Care Provider [phone] Patric Jaime DPT Unavailable [phone] Encounter Details Date Type Department Care Team (Late st Contact Info) Description 10/18/2025 8:19 AM ANIMAL CARE WORKER Anesthesia Event [facility] [address] [place] [address] Christine Fraire MD [address] [place], [place] [id number] Anesthesia Record Procedure Summary Procedure Name Responsible Anesthesiologist Anesthesia Start Time Anesthesia Stop Time ECT W SEDATION Christine Fraire MD 10/18/25 0819 10/18/25 0835 Events Date Time Event Comment 10/18/2025 0819 An Start 0819 An Start Data 0823 ECT Timeout 0825 An Induction The patient was reevaluated immediately before moderate or deep sedation use and before anesthesia induction. 0825 Mask general 0825 Intentional Hyperventilation 0825 Anesthesia Ready 0835 Handoff to RN I completed my handoff to the receiving nurse during which we: 1. Patient identified 2. Responsible provider identified 3. Pertinent medical history reviewed 4. Procedure type and surgical course discussed 5. Intraoperative anesthetic management and any significant issues discussed 6. Expectations and concerns for postop period discussed 7. Questions solicited from receiving nurse 8. Patient disposition at the time of handoff: PACU 0835 An Stop Meds Name Total etomidate 16 mg succinylcholine 30 mg ondansetron PF (ZOFRAN) 2 mg/mL injectio n 4 mg midazolam PF 1 mg labetalol 5 mg/mL 5 mg hydrALAZINE 10 mg * Agents Name O2 * Blood No blood administrations on file. Lines, Drains, and Airways Type Details Placement Removal Peripheral IV Placement Date: 10/01 06/25; Placement Time: 0745; Catheter Size: 22 G; Orientation: Posterior, Right; Location: Hand; Site Prep: Chlorhexidine; Technique: Anatomical landmarks; Inserted by: Yuni Quinn RN; Insertion Attempts: 1; Patient Tolerance: Tolerated well; Removal Date: 10/18/25; Removal Time: 0858; Removal Reason: Therapy completed 10/18/25 0745 by Maria E Quinn RN 10/18/25 0858 by Christie Treadwell RN documented in this encounter Social History Tobacco Use Types Packs/Day Years [...] on file Legal Sex Female 12:25 AM ANIMAL CARE WORKER Gender Identity Female 07/01/2022 4:06 PM CDT Sexual Orientation Not on file documented as of this encounter OR Notes * Anesthesia Postprocedure Evaluation - Christine Fraire MD - 10/18/2025 8:57 AM CST Patient: Aminata Angela Procedure Summary Date: 10/18/25 Room / Location: [facility] Anesthesia Start: 818 Anesthesia Stop: 834 Procedure: ECT W SEDATION Diagnosis: Scheduled Providers: Christine Fraire MD Responsible Provider: Christine Fraire MD Anesthesia Type: general ASA Status: 2 Anesthesia Type: general Last vitals Vitals Value Taken Time BP 148/80 10/18/25 08:50 Temp 36 C 10/18/25 08:57 Pulse 104 10/18/25 08:50 Resp 12 10/18/25 08:50 SpO2 94 % 10/18/25 08:50 Anesthesia Post Evaluation Patient location during evaluation: PACU Patient participation: complete - patient participated Level of consciousness: fully awake Pain score: 0 Pain management: satisfactory to patient Airway patency: patent Evidence of recall: no Cardiovascular status: hemodynamically stable Respiratory status: spontaneous ventilation, non-labored ventilation and room air Hydration status: euvolemic Pt is: normothermic Nausea/Vomiting status: none Comments: Patient in good, stable condition as above. Appropriate for PACU discharge. AL CARE WORKER * Anesthesia Preprocedure Evaluation - Christine Fraire MD - 10/18/2025 8:17 AM CST Images from the original note were not included. Anesthesia Evaluation Aminata Angela is a 75 y.o. female ECT W SEDATION * No surgery found * HISTORY HPI Very anxious 75yo female, here for repeat ECT treatment. Patient Active Problem List Diagnosis Date Noted Major depressive disorder, single episode, severe with psychotic features (HCC) 07/17/2024 Hyperlipidemia 03/14/2024 Major depressive disorder with psychotic features (HCC) 11/22/2023 Anxiety and depression 02/09/2023 Memory loss 02/09/2023 Mild cognitive impairment 02/09/2023 Bradycardia, unspecified 12/02/2022 Eating disorder, unspecified 12/02/2022 Hypo-osmolality and hyponatremia 12/02/2022 Other disorders of phosphorus metabolism 12/02/2022 Anxiety disorder, unspecified 12/02/2022 Family history of cardiovascular disease 08/20/2022 Precordial chest pain 08/20/2022 Abdominal aortic atherosclerosis 08/20/2022 Thoracic aorta atherosclerosis 08/20/2022 Somatic symptom disorder 07/04/2022 Current episode of major depressive disorder without prior episode 07/04/2022 Gastroesophageal reflux disease without esophagitis 12/14/2021 Globus sensation 12/14/2021 Lesion of thyroid gland 12/14/2021 Supraglottic edema 12/14/2021 Major depressive disorder, single episode, unspecified 11/01/2021 Past Medical History: Diagnosis Date Allergic Anxiety Awareness under anesthesia durilng colonoscopy had to get dosed a second time. Depression GERD (gastroesophageal reflux disease) Motion sickness Thyroid lesion biopsied in 2021, benign/cystic Past Surgical History: Procedure Laterality Date SECTION COLONOSCOPY ESOPHAGOGASTRODUODENOSCOPY HYSTERECTOMY IR G TUBE PLACEMENT PERCUTANEOUS N/A 12/07/2022 OB History No obstetric history on file. No Known Allergies Taking? Last Dose Start Date End Date Provider acetaminophen (TYLENOL) 325 mg tablet -- 12/16/21 -- Jonh Mauricio MD Take 2 tablets (650 mg total) by mouth every 4 (four) hours as needed for pain, headaches or fever Patient taking differently: Take 2 tablets (650 mg total) by mouth every 4 (four) hours as needed for pain, headaches or fever cetirizine (ZyrTEC) 10 mg tablet -- -- -- Sera Jin MD fluticasone propionate (FLONASE) 50 mcg/actuation nasal spray -- 07/31/24 -- Jc Ledesma MD Use 2 spray(s) in each nostril once daily Patient taking differently: Administer 1 spray into each nostril daily as needed for allergies mirtazapine (REMERON) 15 mg tablet -- 09/03/25 -- Kate Royal NP Take 1 tablet by mouth nightly multivit-minerals/folic acid (MULTIVITAMIN GUMMIES ORAL) -- -- -- Sera Jin MD pantoprazole (PROTONIX) [address] for susp in packet -- 05/18/25 -- Jc Ledesma MD MIX 1 PACKET IN 8 OZ OF WATER AND DRINK BY MOUTH TWICE DAILY Patient taking differently: Take 1 packet (40 mg total) by mouth 2 (two) times a day Takes twice daily mixed in applesauce rosuvastatin (CRESTOR) 5 mg tablet -- 05/16/25 -- Jc Ledesma MD Take 1 tablet by mouth once daily Patient taking differently: Take 1 tablet (5 mg total) by mouth every morning venlafaxine (EFFEXOR) 75 mg tablet -- 11/22/24 -- Kate Royal NP Take 1 tablet by mouth twice daily Patient taking differently: Take 1 tablet (75 mg total) by mouth 2 (two) times a day Current Outpatient Medications: acetaminophen (TYLENOL) 325 mg tablet cetirizine (ZyrTEC) 10 mg tablet fluticasone propionate (FLONASE) 50 mcg/actuation nasal spray mirtazapine (REMERON) 15 mg tablet multivit-minerals/folic acid (MULTIVITAMIN GUMMIES ORAL) pantoprazole (PROTONIX) [address] for susp in packet rosuvastatin (CRESTOR) 5 mg tablet venlafaxine (EFFEXOR) 75 mg tablet Current Facility-Administered Medications: sodium chloride 0.9% flush 0.5-20 mL, 0.5-20 mL, intravenous, PRN Social History Tobacco Use Smoking Status Never Smokeless Tobacco Never Alcohol Use: Not At Risk (07/12/2025) AUDIT-C Frequency of Alcohol Consumption: 2-4 times a month Average Number of Drinks: 1 or 2 Frequency of Binge Drinking: Never Substance and Sexual Activity Drug Use Not Currently Family History Problem Relation Age of Onset Diabetes Mother Heart disease Mother Colon cancer Father Heart disease Maternal Grandmother Heart disease Paternal Grandmother Anesthesia problems Neg Hx Vitals: 10/18/25 0714 BP: 163/88 Pulse: 98 Resp: 20 Temp: 36.3 ??C (97.3 ??F) SpO2: 96% PT: No results found for requested labs within last 30 days. INR: No results found for requested labs within last 30 days. APTT: No results found for requested labs within last 30 days. Hgb A1C: No results found for requested labs within last 30 days. CBC RBC: No results found for requested labs within last 30 days. RDW: No results found for requested labs within last 30 days. MCHC: No results found for requested labs within last 30 days. MCH: No results found for requested labs within last 30 days. MCV: No results found for requested labs within last 30 days. Hct: No results found for requested labs within last 30 days. Hgb: No results found for requested labs within last 30 days. WBC: No results found for requested labs within last 30 days. MPV: No results found for requested labs within last 30 days. Platelets: No results found for requested labs within last 30 days. RDW CV: No results found for requested labs within last 30 days. RDW Sd: No results found for requested labs within last 30 days. BMP Glucose: No results found for requested labs within last 30 days. Calcium: No results found for requested labs within last 30 days. Sodium: No results found for requested labs within last 30 days. Potassium: No results found for requested labs within last 30 days. CO2: No results found for requested labs within last 30 days. Chloride: No results found for requested labs within last 30 days. BUN: No results found for requested labs within last 30 days. Creatinine: No results found for requested labs within last 30 days. DOS Physical Exam , , Medical history, medications, and allergies reviewed. Attestation: This PAT evaluation 10/18/2025. Airway Exam: Mallampati: II Cervical ROM: FROM Cardiovascular Exam: Rate: tachycardia Rhythm: regular Pulmonary Exam: LCTA, bilat EENT Exam: trachea midline Dental Exam: Appears intact Skin Exam: Skin is warm and dry. Current state: Patient's current state is cooperative and interactive. Anesthesia Plan ASA 2 My patient is approved for the Anesthesia Controlled Medication protocol when under care of a HEEL SCOURER Planned anesthesia: General Team communication plan: mask Induction: Induction: intravenous. Postoperative Plan: Postoperative administration opioids intended. No postoperative mechanical ventilation intended. Patient's planned disposition post procedure is Outpatient. Informed Consent: Anesthesia plan and risks discussed with patient. Consent and Attending signature: I and/or my designee have discussed the anesthesia plan, benefits, possible alternatives, parental presence at time of induction (if indicated), and clinically relevant risks that may include dental injury, unintentional awareness, and/or other complications. The patient and/or parent/legal guardian understand, and agree to proceed. All questions answered. AL CARE WORKER documented in this encounter Plan of Treatment Not on file documented as of this encounter Visit Diagnoses Not on filedocumented in this encounter Administered Medications Inactive Administered Medications - up to 3 most recent administrations Medication Order MAR Action Action Date Dose Rate Site etomidate (AMIDATE) injection intravenous, Administer over 1 Minutes, As needed, Starting on Bri 10/18/25 at 0825, Anesthesia Intra-op Given 10/18/2025 8:25 AM ANIMAL CARE WORKER 16 mg hydrALAZINE (APRESOLINE) injection intravenous, Administer over 2 Minutes, As needed, Starting on Bri 10/18/25 at 0833, Anesthesia Intra-op, Indications: hypertensionIndications:hypertensio n Given 10/18/2025 8:33 AM ANIMAL CARE WORKER 10 mg labetaloL (NORMODYNE,TRANDATE) injection intravenous, As needed, Starting on Bri 10/18/25 at 0823, Anesthesia Intra-op Given 10/18/2025 8:23 AM ANIMAL CARE WORKER 5 mg midazolam (VERSED) 1 mg/mL preservative free injection intravenous, Administer over 2 Minutes, As needed, Starting on Bri 10/18/25 at 0831, Anesthesia Intra-op Given 10/18/2025 8:31 AM ANIMAL CARE WORKER 1 mg ondansetron (ZOFRAN) injection intravenous, Administer over 2 Minutes, As needed, Starting on Bri 10/18/25 at 0825, Anesthesia Intra-op Given 10/18/2025 8:25 AM ANIMAL CARE WORKER 4 mg succinylcholine (ANECTINE) injection intravenous, As needed, Starting on Bri 10/18/25 at 0825, Anesthesia Intra-op Given 10/18/2025 8:25 AM ANIMAL CARE WORKER 30 mg documented in this encounter Care Teams Delimber Operator Relationship Specialty Start Date End Date Jc Ledesma MD PCP - General Internal Medicine 09/10/20 Patric Jaime DPT [id number] [facility] [address] [place] [address] Physical Therapist Physical Therapy 03/19/23 documented as of this encounter
--- OUTSIDE RECORDS SUMMARY | 2025-10-18 14:00 | XMS_ITS | Encounter Summary ---
Author Organization [facility] Address [address] [place] [address] Phone Care Team Providers Care Bundle Helper Name Role Phone Jc Ledesma MD Primary Care Provider [phone] Patric Jaime DPT Unavailable [phone] Encounter Details Date Type Department Care Team (Late st Contact Info) Description 10/18/2025 2:00 PM REFRACTORY MIXER Office Visit [facility] Medicine Psychiatry [address] [place] [address] Joel Wong MD [address] [facility] [address] [place] [address] Major depressive disorder, recurrent episode, in full remission (Primary Dx); Encounter for attention to gastrostomy (HCC); Sedative, hypnotic or anxiolytic dependence, uncomplicated (HCC) Social History Tobacco Use Types Packs/Day Years [...] on file Legal Sex Female 12:25 AM REFRACTORY MIXER Gender Identity Female 07/01/2022 4:06 PM CDT Sexual Orientation Not on file documented as of this encounter Patient Instructions * Patient Instructions* Krystin Alvarado MD - 10/18/2025 2:00 PM REFRACTORY MIXER No changes were made to your medications Continue maintenance ECT, can also tell them about your headaches so they can give medications to help ACTORY MIXER documented in this encounter Progress Notes * Krystin Alvarado MD - 10/18/2025 2:00 PM CST Identification: Aminata Angela75 y.o. female with history of MDD and somatic symptom disorder who presents for follow up. Chief complaint: I'm doing good History of Present Illness: Patient returns after last being seen in clinic 04/19/25 where she endorsed doing well. No med changes were made. She is currently doing monthly maintenance ECT. PHQ9= 3, GAD7= 4. Overall, notes she is doing well. She had ECT this morning and then went shopping and to lunch withfamily. Gets headaches after ECT, though she is not sure she has mentioned this to ECT team. She's happy with her progress with ECT but would like to work on the headaches. Still has dry mouth so chews gum a lot. She is eating and drinking well, gaining weight appropriately. She enjoys going out to eat with friends on nights, discussed it is fine for her to drink alcohol in moderation while out to dinner with them (though not before ECT). She is hoping to go on a vacation soon and hopes to start driving again. I reviewed all of the patient's medications and found no new concerns. I asked about side effects to the patient's psychiatric medications and they reported none. I asked about adherence which was good. Current Medications: Current Outpatient Medications Medication Sig Dispense Refill acetaminophen (TYLENOL) 325 mg tablet Take 2 tablets (650 mg total) by mouth every 4 (four) hours as needed for pain, headaches or fever (Patient taking differently: Take 2 tablets (650 mg total) by mouth every 4 (four) hours as needed for pain, headaches or fever) 30 tablet cetirizine (ZyrTEC) 10 mg tablet Take 1 tablet (10 mg total) by mouth daily as needed for allergies fluticasone propionate (FLONASE) 50 mcg/actuation nasal spray Use 2 spray(s) in each nostril once daily (Patient taking differently: Administer 1 spray into each nostril daily as needed for allergies) 16 g 1 mirtazapine (REMERON) 15 mg tablet Take 1 tablet by mouth nightly 30 tablet 11 multivit-minerals/folic acid (MULTIVITAMIN GUMMIES ORAL) Take 2 tablet/chew tab by mouth every morning pantoprazole (PROTONIX) [address] for susp in packet MIX 1 PACKET IN 8 OZ OF WATER AND DRINK BY MOUTH TWICE DAILY (Patient taking differently: Take 1 packet (40 mg total) by mouth 2 (two) times a day Takes twice daily mixed in applesauce) 180 packet 3 rosuvastatin (CRESTOR) 5 mg tablet Take 1 tablet by mouth once daily (Patient taking differently: Take 1 tablet (5 mg total) by mouth every morning) 90 tablet 3 venlafaxine (EFFEXOR) 75 mg tablet Take 1 tablet by mouth twice daily (Patient taking differently: Take 1 tablet (75 mg total) by mouth 2 (two) times a day) 60 tablet 11 No current facility-administered medications for this visit. Facility-Administered Medications Ordered in Other Visits Medication Dose Route Frequency Provider Last Rate Last Admin sodium chloride 0.9% flush 0.5-20 mL 0.5-20 mL intravenous PRN Jameson Robles MD Medical History: Past Medical History: Diagnosis Date Allergic Anxiety Awareness under anesthesia durilng colonoscopy had to get dosed a second time. Depression GERD (gastroesophageal reflux disease) Motion sickness Thyroid lesion biopsied in 2021, benign/cystic ROS: negative Mental Status Exam: General: Awake, alert, and interactive with examiner. Good eye contact. Appearance: Appropriate Behavior: Cooperative and Friendly Speech: normal rate, tone and rhythm and coherent speech Thought Process: logical, sequential, goal directed Content of Thought: no delusions or hallucinations Suicidal Ideation: none noted Homicidal Ideation: No Mood: good Affect: euthymic, full range, congruent with mood Insight/Judgment: Good Sensorium/Intellect: alert and oriented x3 Memory: Grossly intact Attention/Concentration: normal based on conversation/exam Diagnosis and Plan: MDD, in remission Somatic Symptom Disorder Mrs. Angela is doing well on current medication regimen plus maintenance ECT as evidence by bother her subjective report, MSE, and PHQ-9 score. Her symptoms appear to be in remission and she is enjoying re-engaging in social activities. Plan to continue maintenance ECT indefinitely given previous return of symptoms when ECT was stopped. Will continue current medication regimen. Plan to follow up in 6 months given stability. Plan: - continue venlafaxine 75 mg BID - continue mirtazapine 15 mg nightly - continue monthly ECT - encouraged her to let ECT team know about post procedure headaches as they may be able to add something to help The risks, benefits, and side effects of the treatment were reviewed, and the patient assented to this treatment plan. She is not at an acutely elevated risk of harm to self or others as evidenced byremission in symptoms and remains appropriate for outpatient care. The patient has also attended the following appointments today: ECT. Krystin Alvarado MD Cosigned by Joel Wong MD at 10/18/2025 4:10 PM REFRACTORY MIXER ACTORY MIXER ACTORY MIXER Associated attestation - Joel Wong MD - 10/18/2025 4:10 PM REFRACTORY MIXER I have seen and examined the patient. I agree with the findings and plan of care as documented in the resident/fellow's note. My total encounter time on 10/18/2025 was 30 minutes which included 20 minutes of supportive psychotherapy regarding a range of topics including coping with ongoing ECT, increasing socialization, and returning to driving, from 230-250. documented in this encounter Plan of Treatment Not on file documented as of this encounter Visit Diagnoses Diagnosis Major depressive disorder, recurrent episode, in full remission- Primary Encounter for attention to gastrostomy (HCC) Sedative, hypnotic or anxiolytic dependence, uncomplicated (HCC) documented in this encounter Care Teams Bundle Helper Relationship Specialty Start Date End Date Jc Ledesma MD PCP - General Internal Medicine 09/10/20 Patric Jaime DPT [id number] [facility] [address] [place] [id number] Physical Therapist Physical Therapy 03/19/23 documented as of this encounter
--- NOTE | ~2025-10-19 | CT_ITS ---
CT cervical spine wo con HISTORY: head injury COMPARISON: None TECHNIQUE: Axial images of the cervical spine were obtained. Multiplanar reconstruction in the coronal, sagittal and axial reformats to evaluate for cervical fracture. FINDINGS: The images demonstrate degenerative retrolisthesis of C3 on C4. There are moderate degenerative changes with disc space narrowing, endplate sclerotic changes and uncovertebral hypertrophy from C3-C4 through C6-C7. There are facet joint arthropathy noted. The visualized aspect of the upper lungs are clear. IMPRESSION: No acute fracture or subluxation. All CT scans at this facility are performed using low dose modulation techniques as appropriate to perform exam including the following: automated exposure control; adjustment of the mA and/or kV according to patient size (this includes techniques or standardized protocols for targeted exams where does is matched to indication/reason for exam; i.e. extremities or head); use of iterative reconstruction technique). Reviewed, dictated and finalized at location S. RICT PLANT SUPERVISOR IMPRESSION: No acute fracture or subluxation. All CT scans at this facility are performed using low dose modulation techniqu es as appropriate to perform exam including the following: automated exposure c ontrol; adjustment of the mA and/or kV according to patient size (this includes techniques or standardized protocols for targeted exams where does is matched to indication/reason for exam; i.e. extremities or head); use of iterative bg nstruction technique).
--- NOTE | ~2025-10-19 | CT_ITS ---
CT brain wo con HISTORY:head injury COMPARISON: None. TECHNIQUE: Axial images were obtained of the head without intravenous contrast. FINDINGS: No acute intracranial hemorrhage, mass effect or midline shift. No extra-axial fluid collections. The calvarium is intact. Chronic white matter microangiopathic changes are noted in the periventricular white matter.Visualized paranasal sinuses and mastoid air cells are clear. IMPRESSION: No acute intracranial hemorrhage or extra axial fluid collections. All CT scans at this facility are performed using low dose modulation techniques as appropriate to perform exam including the following: automated exposure control; use of iterative reconstruction technique; adjustment of the mA and/or kV according to patient size (this includes techniques or standardized protocols for targeted exams where dose is matched to indication/reason for exam). Reviewed, dictated and finalized at location S. OR SAFETY SUPPORT MANAGER IMPRESSION: No acute intracranial hemorrhage or extra axial fluid collections. All CT scans at this facility are performed using low dose modulation techniqu es as appropriate to perform exam including the following: automated exposure c ontrol; use of iterative reconstruction technique; adjustment of the mA and/or kV according to patient size (this includes techniques or standardized protocol s for targeted exams where dose is matched to indication/reason for exam).
[2025-10-19 21:14] VITALS: BP 131/63; PULSE 83; RESP 17; TEMP 36.7; O2SAT 94
--- OUTSIDE RECORDS SUMMARY | 2025-10-19 21:33 | XMS_ITS | Encounter Summary ---
Author Organization [facility] Address [address] [place] [address] Care Team Providers Care Business Consultant Name Role Phone Jc Ledesma MD Primary Care Provider [phone] Encounter Details Date Type Department Care Team (Latest Contact Info) Description 05/25/2006 Outpatient Historical [facility] DEBBI Dunham Jr., Chandrika Park MD NO ADDRESS ON FILE Other Screening Mammogram (Primary Dx) Social History Tobacco Use Types Packs/Day Years Used Date Smoking Tobacco: Never Assessed Comments Unknown Sex and Gender Information Value Date Recorded Sex Assigned at Not on file Legal Sex Female 3:00 AM ACCREDITATION MANAGER Gender Identity Not on file Sexual Orientation Not on file documented as of this encounter Plan of Treatment Not on file documented as of this encounter Visit Diagnoses Diagnosis Other screening mammogram- Primary documented in this encounter Care Teams Business Consultant Relationship Specialty Start Date End Date Jc Ledesma MD PCP - General 10/18/15 documented as of this encounter
--- OUTSIDE RECORDS SUMMARY | 2025-10-19 21:33 | XMS_ITS | Encounter Summary ---
Author Organization [facility] Address 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 Gender Identity Not on file Sexual Orientation Not on file documented as of this encounter Plan of Treatment Not on file documented as of this encounter Procedures Procedure Name Priority Date/Time Associated Diagnosis Comments MAMMO SCREEN BILAT W OR WO CAD Routine 06/08/2008 12:38 PM CDT documented in this encounter Results * MAMMO DIGITAL SCREEN BILAT (06/08/2008 12:38 PM CDT) Anatomical Region Laterality Modality Breast Bilateral Other 06/08/2008 12:3 8 PM CDT Narrative 06/08/2008 1:29 PM CDT [address] [address] Admit Date: 06/08/2008 [place] HILL Sex: F Admit Prov: CHANDRIKA REED Date: 1950 Primary Care Prov: JENNIFER LEDESMA CMRN: [id number] Room: WAN SSN: [id number] IMAGING SERVICES Ordering Prov: CHANDRIKA REED Accession Number: [id number] Interpretation DIGITAL SCREENING MAMMOGRAM WITH COMPUTER-ASSISTED DIAGNOSIS Findings: The breasts were imaged with digital mammographic technique. The breasts are almost entirely fat. No significant mass, malignant calcification or architectural distortion is noted. The CAD system does not highlight any suspicious areas. Summary: No mammographic evidence of malignancy. There has been no significant change from prior study of 06/07. Recommendations: Bilateral yearly screening mammogram is recommended. Assessment BIRADS: 1-Negative Recommendation: Normal interval follow-up Dictated by: ELLYN HERNANDEZ Electronically signed by: ELLYN HERNANDEZ 06/08/2008 13:29 Transcribed: 06/08/2008 13:29 CXZ Procedure Note Ellyn Hernandez - 06/08/[address] [address] Admit Date: 06/08/2008 [place] Sex: F Admit Prov: CHANDRIKA REED Date: 1950 Primary Care Prov: JENNIFER LEDESMA CMRN: [id number] Room: WAN SSN: [id number] IMAGING SERVICES Ordering Prov: CHANDRIKA REED Interpretation DIGITAL SCREENING MAMMOGRAM WITH COMPUTER-ASSISTED DIAGNOSIS Findings: The breasts were imaged with digital mammographictechnique. The breasts are almost entirely fat. No significant mass, malignant calcification or architectural distortion is noted. The CAD system does not highlight any suspicious areas. Summary: No mammographic evidence of malignancy. There has been no significant change from prior study of 06/07. Recommendations: Bilateral yearly screening mammogram is recommended. Assessment BIRADS: 1-Negative Recommendation: Normal interval follow-up Dictated by: ELLYN HERNANDEZ Electronically signed by: ELLYN HERNANDEZ 06/08/2008 13:29 Transcribed: 06/08/2008 13:29 CXZ Chandrika Reed Jr., MD MAMMO ORDERABLES Final Res ult documented in this encounter Visit Diagnoses Diagnosis Other screening mammogram documented in this encounter Care Teams Blacksmith Apprentice Relationship Specialty Start Date End Date Jennifer Ledesma MD PCP - General 10/18/15 documented as of this encounter
--- OUTSIDE RECORDS SUMMARY | 2025-10-19 21:33 | XMS_ITS | Encounter Summary ---
Author Organization [facility] Address 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
--- OUTSIDE RECORDS SUMMARY | 2025-10-19 21:33 | XMS_ITS | Encounter Summary ---
Author Organization [facility] Address 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
--- OUTSIDE RECORDS SUMMARY | 2025-10-19 21:33 | XMS_ITS | Encounter Summary ---
Author Organization [facility] Address 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
--- OUTSIDE RECORDS SUMMARY | 2025-10-19 21:33 | XMS_ITS | Encounter Summary ---
Author Organization [facility] Address [address] [place] [address] Care Team Providers Care Associate Professor Of Archaeology Name Role Phone Jc Ledesma MD Primary Care Provider [phone] Encounter Details Date Type Department Care Team (Latest Contact Info) Description 06/10/2004 Outpatient Historical HIS [facility] DEBBI Dunham Jr., Chandrika Park MD NO ADDRESS ON FILE SCREENING MAMM-MAILG NEOPL-OTHER (Primary Dx) Social History Tobacco Use Types Packs/Day Years Used Date Smoking Tobacco: Never Assessed Comments Unknown Sex and Gender Information Value Date Recorded Sex Assigned at Not on file 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
--- OUTSIDE RECORDS SUMMARY | 2025-10-19 21:34 | XMS_ITS | Clinical Summary ---
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 Gender Identity Not on file Sexual Orientation Not on file Occupation Industry Job Start Date Job End Date Not on file Not on file Not on file Not on file Plan of Treatment Health Maintenance Due Date Last Done Comments DTAP/TDAP/TD VACCINES (1 - Tdap) 1968 ZOSTER VACCINE (1 of 2) 1999 PNEUMOCOCCAL VACCINE 50+ YEA RS (2 of 2 - PCV20 or PCV21) 07/03/2018 07/03/2017 RSV VACCINE (60+ or ) (1 - 1-dose 75+ series) 2024 INFLUENZA VACCINE (#1) 2025 , 06/21/2020, 08/24/2019, Additional history exists COVID-19 Vaccine (3 - 2024-2 6 season) 2025 12/25/2020, 11/27/2020 OSTEOPOROSIS SCREENING 08/29/2026 08/29/2021 COLORECTAL SCREENING Discontinued 01/09/2019 Colorectal Cancer Screening Discontinued FIT-DNA Q 3 years Discontinued FIT/FOBT Q 1 year Discontinued Flex Sig/CT Colonography Q 5 years Discontinued Insurance [facility] Address: [facility] [address] [place] [address] [facility] Address: [address] [place] [address] Care Teams Certified Ophthalmic Technician Relationship Specialty Start Date End Date Jc Ledesma MD PCP - General 10/18/15
--- OUTSIDE RECORDS SUMMARY | 2025-10-19 21:34 | XMS_ITS | Clinical Summary ---
Author Organization [facility] Address [address] [place] [address] Care Team Providers Care Lighting Engineering Technician Name Role Phone Unavailable Primary Care Provider Unavailabl e Immunizations Immunization Administration Dates Next Due MODERNA COVID-19 (12+) MRNA, LNP-S, PF, 100 MCG/ 0.5 ML DOSE 12/25/2020,11/27/2020 Social History Tobacco Use Types Packs/Day Years Used Date Smoking Tobacco: Never Assessed Comments Unknown Sex and Gender Information Value Date Recorded Sex Assigned at Not on file Legal Sex Female 4:35 PM COMMUNICATION TECHNICIAN Gender Identity Not on file Sexual Orientation Not on file Plan of Treatment Health Maintenance Due Date Last Done Comments Hepatitis C 1967 DTaP, Tdap and Td Vaccines ( 1 - Tdap) 1968 Zoster Vaccines (1 of 2) 1999 Dexa Scan (General) 2014 Pneumococcal Vaccine: 50+ Years (2 of 2 - PCV20 or PCV21) 07/03/2018 07/03/2017 RSV Immunization or 60+ Years (1 - 1-dose 75+ series) 2024 COVID-19 Vaccine (3 - 2024-2 6 season) 2025 12/25/2020, 11/27/2020 Influenza Adult (#1) 2025 06/21/2020 Hepatitis A Vaccines Aged Out No long er eligible based on patient's age to complete this topic Meningococcal B Vaccine Aged Out No l onger eligible based on patient's age to complete this topic Meningococcal Vaccine Aged Out No cuong stefan eligible based on patient's age to complete this topic RSV Immunizations Under 20 Months Aged Out No longer eligible b ased on patient's age to complete this topic
--- OUTSIDE RECORDS SUMMARY | 2025-10-19 21:34 | XMS_ITS | Encounter Summary ---
Author Organization [facility] Address 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 Gender Identity Not on file Sexual Orientation Not on file documented as of this encounter Plan of Treatment Not on file documented as of this encounter Procedures Procedure Name Priority Date/Time Associated Diagnosis Comments MAMMO SCREEN BILAT W OR WO CAD Routine 06/11/2009 10:26 AM CDT documented in this encounter Results * MAMMO DIGITAL SCREEN BILAT (06/11/2009 10:26 AM CDT) Anatomical Region Laterality Modality Breast Bilateral Other 06/11/2009 10:2 6 AM CDT Narrative 06/11/2009 8:14 PM CDT [address] [address] Admit Date: 06/11/2009 [place] Sex: F Admit Prov: CHANDRIKA REED Date: 1950 Primary Care Prov: JENNIFER LEDESMA CMRN: [id number] Room: WAN SSN: [id number] IMAGING SERVICES Ordering Prov: CHANDRIKA REED Accession Number: [id number] Interpretation BILATERAL SCREENING DIGITAL MAMMOGRAM WITH COMPUTER ASSISTED DIAGNOSIS, 06/11/2009 CLINICAL HISTORY: Routine screening study. Comparison mammograms dating back to 2006. FINDINGS: The parenchyma is moderately dense bilaterally. There is no mass, malignant calcification, lymphadenopathy or other sign of malignancy. The images were reviewed using the CAD system. IMPRESSION: No mammographic evidence of malignancy. BI-RADS: 1, negative. Assessment BIRADS: 1-Negative Recommendation: Normal interval follow-up Dictated by: KARLI PINON Electronically signed by: KARLI PINON 06/11/2009 20:13 Transcribed: 06/11/2009 12:39 DKT Procedure Note Karli Pinon MD - 06/11/[address] [address] Admit Date: 06/11/2009 [place] Sex: F Admit Prov: CHANDRIKA REED Date: 1950 Primary Care Prov: JENNIFER LEDESMA CMRN: [id number] Room: WAN SSN: [id number] IMAGING SERVICES Ordering Prov: CHANDRIKA REED Interpretation BILATERAL SCREENING DIGITAL MAMMOGRAM WITH COMPUTER ASSISTEDDIAGNOSIS, 06/11/2009 CLINICAL HISTORY: Routine screening study. Comparison mammograms dating back to 2006. FINDINGS: The parenchyma is moderately dense bilaterally. There is nomass, malignant calcification, lymphadenopathy or other sign ofmalignancy. The images were reviewed using the CAD system. IMPRESSION: No mammographic evidence of malignancy. BI-RADS: 1, negative. Assessment BIRADS: 1-Negative Recommendation: Normal interval follow-up Dictated by: KARLI PINON Electronically signed by: KARLI PINON 06/11/2009 20:13 Transcribed: 06/11/2009 12:39 DKT Chandrika Reed Jr., MD MAMMO ORDERABLES Final Res ult documented in this encounter Visit Diagnoses Diagnosis Other screening mammogram documented in this encounter Care Teams Wound Care Rn Relationship Specialty Start Date End Date Jennifer Ledesma MD PCP - General 10/18/15 documented as of this encounter
--- OUTSIDE RECORDS SUMMARY | 2025-10-19 21:34 | XMS_ITS | Encounter Summary ---
Author Organization [facility] Address [address] [place] [address] Care Team Providers Care Tube Dispatcher Name Role Phone Jc Ledesma MD Primary Care Provider [phone] Patric Jaime DPT Unavailable [phone] Encounter Details Date Type Department Care Team (Late st Contact Info) Description 12/18/2021 Orders Only [facility] [address] [facility] [address] [facility] [place] [address] Jc Ledesma MD [address] [facility] [address] [place] [address] Thyroid nodule (Primary Dx) Social History Tobacco Use Types Packs/Day Years Used Date Smoking Tobacco: Never Smokeless Tobacco: Never Alcohol Use Standard Drinks/Week Comments Yes 0 (1 standard drink = 0.6 oz pur e alcohol) Comments No Sex and Gender Information Value Date Recorded Sex Assigned at Not on file Legal Sex Female 12:25 AM COMMUNICATION ELECTRONIC TECHNICIAN Gender Identity Female 07/01/2022 4:06 PM CDT Sexual Orientation Not on file documented as of this encounter Plan of Treatment Not on file documented as of this encounter Visit Diagnoses Diagnosis Thyroid nodule- Primary Nontoxic uninodular goiter documented in this encounter Additional Health Concerns Infection Onset Date Last Indicated Resolved Time COVID: Suspected 07/17/2024 07/17/2024 07/17/2024 9:30 PM CDT documented as of this encounter Care Teams Tube Dispatcher Relationship Specialty Start Date End Date Jc Ledesma MD PCP - General Internal Medicine 09/10/20 Patric Jaime, DPT [id number] [address] Physical Therapist Physical Therapy 03/19/23 documented as of this encounter
--- OUTSIDE RECORDS SUMMARY | 2025-10-19 21:34 | XMS_ITS | Encounter Summary ---
Author Organization [facility] Address 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
--- OUTSIDE RECORDS SUMMARY | 2025-10-19 21:34 | XMS_ITS | Clinical Summary ---
Author Organization [facility] [address] Address [address] [place] [address] Care Team Providers Care Brand Strategy Manager Name Role Phone Jc Ledesma MD Primary Care Provider [phone] Patric Jaime DPT Unavailable [phone] Allergies No known active allergies Medications acetaminophen (TYLENOL) 325 mg tablet Take 2 tablets (650 mg total) by mouth every 4 (four) hours as needed for pain, headaches or fever 30 tablet 2 Active Additional Information Patient taking differently:650 mg oral Every 4 hours PRN, pain, headaches, fever,Indications: Pain, Informant: Self, Family Member, Reported on 07/12/2025 fluticasone propionate (FLONASE) 50 mcg/actuation nasal spray Use 2 spray(s) in each nostril once daily 16 g 1 4 Active Additional Information Patient taking differently: 1 spray each nostril Daily PRN, allergies, Indications: allergies, Informant: Self, Family Member, Reported on 07/12/2025 venlafaxine (EFFEXOR) 75 mg tablet Take 1 tablet by mouth twice daily 60 tablet 11 5 Active Additional Information Patient taking differently:75 mg oral 2 times daily,Indications: Generalized Anxiety Disorder, Informant: Self, Family Member, Reported on 07/12/2025 rosuvastatin (CRESTOR) 5 mg tablet Take 1 tablet by mouth once daily 90 tablet 3 5 Active Additional Information Patient taking differently:5 mg oralEvery morning, Indications: hyperlipidemia, Informant: Self, Family Member, Reported on 07/12/2025 pantoprazole (PROTONIX) [address] for susp in packet MIX 1 PACKET IN 8 OZ OF WATER AND DRINK BY MOUTH TWICE DAILY 180 packet 3 5 Active Additional Information Patient taking differently: 40 mg oral 2 times daily, Takes twice daily mixed in applesauce, Indications: Treatment of Non-Bleeding Gastric Disorder, Informant: Self, Family Member, Reported on 07/12/2025 multivit-minera ls/folic acid (MULTIVITAMIN GUMMIES ORAL)Indication s:supplement Take 2 tablet/chew tab by mouth every morning Active cetirizine (ZyrTEC) 10 mg tabletIndicatio ns:allergies Take 1 tablet (10 mg total) by mouth daily as needed for allergies Active mirtazapine (REMERON) 15 mg tablet Take 1 tablet by mouth nightly 30 tablet 11 5 Active Active Problems Problem Noted Date Diagnosed Date Encounter for attention to gastrostomy 5 Sedative, hypnotic or anxiolytic dependence, unc omplicated 10/18/2025 Major depressive disorder, s ina episode, severe with psychotic features 07/17/2024 Hyperlipidemia 03/14/2024 Assessment & Plan (04/12/2025 9:01 AM CDT): Stable, continue Major depressive disorder with psychotic feature s 11/22/2023 Assessment & Plan (04/12/2025 9:04 AM CDT): Is much better. Anxiety and depression 02/09/2023 Memory loss 02/09/2023 Mild cognitive impairment 02/09/2023 Bradycardia, unspecified 12/02/2022 Eating disorder, unspecified 12/02/2022 Assessment & Plan (04/12/2025 9:02 AM CDT): Better, has been gaining weight Hypo-osmolality and hyponatremia 12/02/2022 Other disorders of phosphorus metabolism 023 Anxiety disorder, unspecified 12/02/2022 Assessment & Plan (01/10/2025 9:10 AM CDT): Continues to do well. Receives her ECT monthly. Overall her trajectory has been excellent. Family history of cardiovascular disease 022 Precordial chest pain 08/20/2022 Abdominal aortic atherosclerosis 08/20/2022 Overview (08/20/2022): Based on CT imaging Thoracic aorta atherosclerosis 08/20/2022 Somatic symptom disorder 07/04/2022 Assessment & Plan (08/05/2023 10:46 AM CDT): We discussed using the spray she has on hand proactively rather than reactively, use after eating Reinforced that she has been full evaluated and nothing structurally wrong with esophagus Encouraged to continue to keep drinking and taking sips more often to help acclimate to sensation Could suck on sour candy (lemon drops) to help with dry mouth and distaste in mouth Current episode of major dep ressive disorder without prior episode 07/04/2022 Overview (07/04/2022): Due to response to medical condition Gastroesophageal reflux disease without esophagi tis 12/14/2021 Assessment & Plan (04/12/2025 9:02 AM CDT): Discussed changing protonix to capsules. Will leave on granules for now Globus sensation 12/14/2021 Assessment & Plan (04/12/2025 9:02 AM CDT): Still has occasionally, still has automatic lips movement and smacking Assessment & Plan (01/10/2025 9:10 AM CDT): Unchanged. While this is still present occasionally it has not been as much of a focus. Lesion of thyroid gland 12/14/2021 Supraglottic edema 12/14/2021 Major depressive disorder, single episode, unspe cified 11/01/2021 Assessment & Plan (01/10/2025 9:10 AM CDT): Currently doing well on medication. Resolved Problems Problem Noted Date Diagnosed Date Resolved Date Functional dysphagia 02/09/2023 023 Severe malnutrition 12/02/2022 08/05/20 23 Weight loss 08/03/2022 08/05/2023 Assessment & Plan (08/03/2022 9:20 AM CDT): Long conversation, still has not gained weight. We discussed feeding tube. Will start (restart) escitalopram. TO see gastroenterology. To see psychiatry, psychology. Will do zoom call in 2 weeks. Dysphagia 12/15/2021 08/05/2023 Dysphagia 12/13/2021 12/14/2021 Other dysphagia 12/02/2021 08/05/2023 Assessment & Plan (12/02/2021 2:48 PM GIS MANAGER): Progressive will refer for urgent EGD. She is to come to the emergency room should she have loss of ability to swallow. Encounters Date Type Department Care Team Description 10/18/2025 2:00 PM GIS MANAGER Office Visit [facility] [address] [address] Joel Wong MD Major depressive disorder, recurrent episode, in full remission (Primary Dx); Encounter for attention to gastrostomy (HCC); Sedative, hypnotic or anxiolytic dependence, uncomplicated (HCC) 10/18/2025 8:19 AM GIS MANAGER Anesthesia Event [address] [phone] Christine Fraire MD 10/18/2025 5:36 AM GIS MANAGER - 10/18/2025 11:59 PM GIS MANAGER Hospital Encounter [facility] [address] [place] [address] Savannah Dutta MD Foster, Catherine Duncan Staley, MD Major depressive disorder with psychotic features (HCC) (Primary Dx) Discharge Disposition: Discharge to home or self care 09/20/2025 7:42 AM GIS MANAGER Anesthesia Event [facility] [address] [place] [address] Raffy Brown MD 09/20/2025 5:36 AM GIS MANAGER - 09/20/2025 11:59 PM GIS MANAGER Hospital Encounter [facility] [address] [place] [address] Savannah Dutta MD Major depressive disorder with psychotic features (HCC) (Primary Dx) Discharge Disposition: Discharge to home or self care 09/13/2025 8:00 AM GIS MANAGER Office [facility] [address] [place] [phone] Jc Ledesma MD Somatic symptom disorder (Primary Dx); Memory loss; Major depressive disorder, single episode, severe with psychotic features (HCC) 08/16/2025 7:38 AM CDT Anesthesia Event [address] [phone] Fly Sexton III, MD PhD 08/16/2025 6:43 AM CDT - 08/16/2025 11:59 PM CDT Hospital Encounter [address] [address] Saavnnah Dutta MD Major depressive disorder with psychotic features (HCC) (Primary Dx) Discharge Disposition: Discharge to home or self care 08/15/2025 3:00 PM CDT Office Visit [facility] [address] [facility] [address] [place] [phone] Lexi Ang, PhD Somatic symptom disorder (Primary Dx); Anxiety disorder, unspecified type; Major depressive disorder, recurrent episode, in full remission from Last 3 Months Immunizations Immunization Administration Dates Next Due Influenza, Quadrivalent, Hig h Dose, Preservative Free, Intrr 08/11/2021,06/21/2020 Influenza, Trivalent, High D ose, Split, Preservative Free, Intramuscular 09/13/2025,09/29/2024,08/24/2019,08/19,07/03/2017 Influenza, Trivalent, IM (MDV) 10/03/2014,2013,08/03/2013 Influenza, Trivalent, Preser vative Free, Intramuscular 08/04/2013 Pneumococcal Conjugate PCV 13 07/03/2017 Pneumococcal Conjugate Pcv21 01/15/2025 RSV Vaccine, Pref, Recombina nt, Subunit, Adjuvanted, PF, IM (Arexvy) 01/15/2025 Tdap 01/15/2025 Surgical History Surgery Date Site/Laterality Comments HYSTERECTOMY SECTION IR G TUBE PLACEMENT PERCUTANEOUS 12/07/2022 N/A COLONOSCOPY ESOPHAGOGASTRODUODENOSCOPY Medical History Medical History Date Comments Allergic GERD (gastroesophageal reflux disease) Anxiety Depression Awareness under anesthesia duril ng colonoscopy had to get dosed a second time. Motion sickness Thyroid lesion biopsied in 2021 , benign/cystic Family History Medical History Relation Name Comments Colon cancer Father Heart disease Maternal Grandmother Diabetes Mother Heart disease Mother Heart disease Paternal Grandmother Anesthesia problems Neg Hx Relation Name Status Comments Father Maternal Grandmother Mother Paternal Grandmother Social History Tobacco Use Types Packs/Day Years [...] on file Legal Sex Female 12:25 AM GIS MANAGER Gender Identity Female 07/01/2022 4:06 PM CDT Sexual Orientation Not on file Last Filed Vital Signs Vital Sign Reading Time Taken Comments Blood Pressure 132/72 10/18/2025 9:08 AM GIS MANAGER Pulse 98 10/18/2025 9:08 AM GIS MANAGER Temperature 36.3 C (97.3 F) 10/18/2025 7:14 AM GIS MANAGER Respiratory Rate 18 10/18/2025 9:08 AM GIS MANAGER Oxygen Saturation 93% 10/18/2025 9:08 AM GIS MANAGER Inhaled Oxygen Concentration - - Weight 81.2 kg (179 lb) 09/13/2025 8:10 AM GIS MANAGER Height 165.1 cm (5' 5) 07/12/2025 3:20 PM CDT Body Mass Index 29.79 07/12/2025 3:20 PM CDT Plan of Treatment Health Maintenance Due Date Last Done Comments Depression Screening 1950 Hepatitis C Screening 1950 Hepatitis B Screening 1967 Zoster Vaccine (1 of 2) 1999 Well Visit 65+ 09/11/2021 09/11/2020 Covid-19 Vaccine (2024-2 6 season) 2025 09/29/2024, 09/11/2021, 12/25/2020, Additional history exists Osteoporosis Screening-Bone Density Scan 06/23/2026 06/23/2024, 08/29/2021 Fall Risk Assessment 10/18/2026 10/18/2025 DTaP/Tdap/Td Vaccine (2 - Td or Tdap) 01/15/2035 01/15/2025 Colon Cancer Screening-CT Colonography Discontinued 01/09/2019 Colon Cancer Screening-Colonoscopy Discontinued 01/09/2019 Colon Cancer Screening-DNA Stool Discontinued 01/10/20 Colon Cancer Screening-FIT Discontinued 01/09/2019 Colon Cancer Screening-FOBT Discontinued 01/09/2019 Colon Cancer Screening-Sigmoidoscopy Discontinued 01/09/2019 Colorectal Cancer Screening Discontinued Breast Cancer Screening-Mammogram Discontinued 02/02/2024, 02/02/2024, 12/29/2020, Additional history exists Pneumococcal vaccine 65+ Completed 01/15/2025, 12/2016 Influenza Vaccine Completed 09/13/2025, , 08/11/2021, Additional history exists Procedures Procedure Name Priority Date/Time Associated Diagnosis Comments ELECTROCONVULSIVE THERAPY Routine 10/18/2025 7:40 AM GIS MANAGER Major depressive disorder with psychotic features (HCC) ELECTROCONVULSIVE THERAPY Routine 09/20/2025 7:40 AM GIS MANAGER Major depressive disorder with psychotic features (HCC) ECT SCHEDULING Routine 08/16/2025 7:40 AM CDT Major depressive disorder with psychotic features (HCC) DEXA AXIAL SKELETON BONE DENSITY 1 OR MORE SITES Schedule Routine, Read Routine (OP Routine) 06/23/2024 8:26 AM CDT Post-menopausal SCREENING MAMMOGRAM 2D BILATERAL Schedule Routine, Read Routine (OP Routine) 12/29/2020 COLONOSCOPY Routine 01/09/2019 from Last 3 Months or Most Recently Relevant to Health Maintenance Results * Electroconvulsive therapy (10/18/2025 7:40 AM GIS MANAGER) Narrative Savannah Dutta MD - 10/18/2025 7:40 AM GIS MANAGER Savannah Dutta MD 10/19/2025 12:48 PM Psychiatry [...] systems are negative PHYSICAL EXAM: Vitals: Vitals: 12/18/25 0908 BP: 132/72 Pulse: 98 Resp: 18 [...] none Condition on leaving ECT recovery: stable Jameson Robles MD [facility] ORDERABL ES Final Result * Electroconvulsive therapy (09/20/2025 7:40 AM GIS MANAGER) Narrative Svaannah Dutta MD - 09/20/2025 7:40 AM GIS MANAGER Savannah Dutta MD 09/20/2025 1:22 PM Psychiatry Outpatient ECT 30-Day H&P and Pre-Procedure Note Pre-Procedure Pre-Procedure Procedure: ECT outpatient Court Ordered : No Preprocedure Diagnosis: Major Depressive Disorder Prior # of ECTs this course: 47 This Treatment is unilateral Unilateral # 48 Bilateral # 0 Bifrontal # 0 Treatment [...] RUL 100% Monthly 09/20/25 RUL 100% Monthly CHIEF COMPLAINT: MDD INTERVAL HISTORY: Reports she feels good and depression and anxiety are low, but continues to have globus that does not affect PO intake. Denies SE. Will continue monthly due to somatization. PAST MEDICAL HISTORY: Past Medical History Past Medical History: Diagnosis Date Allergic Anxiety Awareness under anesthesia durilng colonoscopy had to get dosed a second time. Depression GERD (gastroesophageal reflux disease) Motion sickness Thyroid lesion biopsied in 2021, benign/cystic Past Surgical History Past Surgical History: Procedure Laterality Date SECTION COLONOSCOPY ESOPHAGOGASTRODUODENOSCOPY HYSTERECTOMY IR G TUBE PLACEMENT PERCUTANEOUS N/A 12/07/2022 ALLERGIES: Allergies No Known Allergies MEDICATIONS: Prior to Admission [...] tablet Take 1 tablet by mouth nightly 08/03/25 Joel Wong MD multivit-minerals/folic acid (MULTIVITAMIN GUMMIES ORAL) Take 2 tablet/chew tab by mouth every morning ProviderSera MD pantoprazole (PROTONIX) [address] for susp in packet MIX 1 PACKET IN 8 OZ OF WATER AND DRINK BY MOUTH TWICE DAILY Patient taking differently: Take 1 packet (40 mg total) by mouth 2 (two) times a day Takes twice daily mixed in applesauce 05/18/25 cJ Ledesma MD rosuvastatin (CRESTOR) 5 mg tablet [...] systems are negative PHYSICAL EXAM: Vitals: Vitals: 08/16/25 0830 BP: 147/76 Pulse: 72 Resp: 16 Temp: SpO2: 95% Cardiac: Regular rate and rhythm. No murmurs, rubs, or gallops. Respiratory:Lungs clear to auscultation bilaterally. No wheezes, rhonchi, or rales. Abdominal: Soft, nontender, nondistended, positive bowel sounds. Extremities: No edema, pulses 2+ Other: MENTAL STATUS EXAM: General: Calm, cooperative, good eye contact. No bizarre behavior. Speech: Regular rate and rhythm, normal volume, amount, latency, and tone. Flow of Thought: Logical, sequential, and goal-directed Content of Thought: No suicidal or homicidal ideation. No hallucinations or delusions. Mood: Good Affect: Euthymic with normal range. Insight:fair Judgement: fair Sensorium:grossly alert Memory: normal based on conversation/exam LABORATORY/DIAGNOSTIC DATA REVIEW: Laboratory review: Lab results in the last 24 hours: Recent Results No results found for this or any previous visit (from the past 24 hours). QIDS-SR (02/22): 2 QIDS-SR (03/29): 0 QIDS-SR (04/26/2025): 0 QIDS-SR (05/24/25): 2 QIDS-SR (06/21/25): 2 QIDS-SR (07/19/25):0 QIDS-SR (08/16/25): 2 QUIDS-SE(09/20/25): 1 ASSESSMENT/PLAN: Diagnosis: MDD Additional Attending Comments:I identified myself to the patient as the [...] Bite block placed: Yes Peripheral seizure duration: >30 sec EEG seizure duration: 67 sec Comments: none Post Procedure: Attending Psychiatrist: Dr. Mora Assistants: Dr. Churchill Post Procedure Diagnosis: Same Name of Procedure: Electroconvulsive Therapy (ECT) Description of the Procedure Findings: none Estimated Blood Loss: none Specimens Removed: none Complications: none Comments: none Condition on leaving ECT recovery: stable Jameson Robles MD BEHAVIORAL HEALTH ORDERABL ES Final Result * ECT Scheduling - (08/16/2025 7:40 AM CDT) Narrative Jesús Pittman MD - 08/16/2025 7:40 AM CDT Jesús Pittman MD 08/16/2025 2:12 PM Psychiatry Outpatient ECT 30-Day H&P and Pre-Procedure Note Pre-Procedure Procedure: ECT outpatient Court Ordered : No Preprocedure Diagnosis: Major Depressive Disorder Prior # of ECTs this course: 46 This Treatment is unilateral Unilateral # 47 Bilateral # 0 Bifrontal # 0 Treatment [...] RUL 100% Monthly 08/16/25 RUL 100% Monthly CHIEF COMPLAINT: MDD INTERVAL HISTORY: Aminata says she is good and she feels ECT continues to work for her. She wonders about spacing out treatments further. She denies SI, HI, AVH, side effects. PAST MEDICAL HISTORY: Past Medical History: Diagnosis [...] tablet Take 1 tablet by mouth nightly 08/03/25 Joel Wong MD multivit-minerals/folic acid (MULTIVITAMIN GUMMIES ORAL) Take 2 [...] systems are negative PHYSICAL EXAM: Vitals: Vitals: 08/16/25 0830 BP: 147/76 Pulse: 72 Resp: 16 Temp: SpO2: 95% Cardiac: Regular rate and rhythm. No murmurs, rubs, or gallops. Respiratory:Lungs clear to auscultation bilaterally. No wheezes, rhonchi, or rales. Abdominal: Soft, nontender, nondistended, positive bowel sounds. Extremities: No edema, pulses 2+ Other: MENTAL STATUS EXAM: General: Calm, cooperative, good eye contact. No bizarre behavior. Speech: Regular rate and rhythm, normal volume, amount, latency, and tone. Flow of Thought: Logical, sequential, and goal-directed Content of Thought: No suicidal or homicidal ideation. No hallucinations or delusions. Mood: Good Affect: Euthymic with normal range. Insight:fair Judgement: fair Sensorium:grossly alert Memory: normal based on conversation/exam LABORATORY/DIAGNOSTIC DATA REVIEW: Laboratory review: Lab results in the last 24 hours: No results found for this or any previous visit (from the past 24 hours). QIDS-SR (02/22): 2 QIDS-SR (03/29): 0 QIDS-SR (04/26/2025): 0 QIDS-SR (05/24/25): 2 QIDS-SR (06/21/25): 2 QIDS-SR (07/19/25):0 QIDS-SR (08/16/25): 2 ASSESSMENT/PLAN: Diagnosis: MDD Additional Attending Comments: Procedure Note TIME OUT Attestation Prior to [...] Bite block placed: Yes Peripheral seizure duration: 37 sec EEG seizure duration: 62 sec Comments: Post Procedure: Attending Psychiatrist: Jesús Pittman MD Assistants: Lashonda Moore DO and Linus Wilcox MD Post Procedure Diagnosis: Same Name of Procedure: Electroconvulsive Therapy (ECT) Description of the Procedure Findings: none Estimated Blood Loss: none Specimens Removed: none Complications: none Comments: Condition on leaving ECT recovery: stable Savannah Angelo MD [facility] ORDERABLES Final Result * Dexa Axial Skeleton Bone Density 1 or 2 Site (06/23/2024 8:26 AM CDT) Anatomical Region Laterality Modality Body N/A Digital Radiogra phy 06/23/2024 9:59 AM CDT Impressions 06/23/2024 10:55 AM CDT 1. The bone mineral density of the lumbar spine is increased. 2. The bone mineral density of the left femoral neck is normal. 3. The bone mineral density of the left total hip is normal. 4. Overall, the above findings are normal by WHO criteria. 5. Calculation of fracture risk using the FRAX model is not appropriate in certain settings. It was not performed in this patient because the patient met the following condition(s): normal bone density. General comments regarding interpretation of bone density measurements: A) In children, premenopausal woman and males under age 50 not at increased risk for fractures only Z-scores, not T-scores are used to indicate risk. A Z-score above -2.0 is defined as within the expected range for age and Z-score at or less than -2.0 is below the expected range for age. A Z-score below the expected range for age in a patient with recent fractures and/or chronic corticosteroid treatment is consistent with a diagnosis of osteoporosis. B) In post menopausal women and males over 50, comparison of the measured bone mineral density with the average value in young normal subjects (the T-score) has been found to be useful in assessing fracture risk. Fracture risk approximately doubles for each 1.0 standard deviation (SD) in individual's hip or spine bone mineral density is below the average value of young normal subjects. The World Health Organization (WHO) has defined T-scores of -1.0 to -2.5 as diagnostic of low bone mass (OSTEOPENIA), and T-scores of -2.5 or lower to be diagnostic of OSTEOPOROSIS, based on the site of lowest bone density. Note that there will be a change in reporting format and reference databases as patients move from the younger population (group A) to the older population (group B) The National Osteoporosis Foundation (www.nof.org) recommends adequate intake of calcium and vitamin D and regular weight-bearing exercise in all patients. They recommend pharmacologic treatment in postmenopausal women and men age 50 and older presenting with any of the followin) Osteoporosis, after appropriate evaluation to exclude secondary causes. 2) A hip or vertebral (clinical or radiographic) fracture, regardless of the bone density. 3) Low bone mass (Osteopenia) and one or more of: other prior fractures, secondary causes associated with high risk of fracture (such as glucocorticoid use or total immobilization), or computed high risk of fracture (10-yr probability of hip fracture >= 3% or a 10-yr probability of any major osteoporosis-related fracture >= 20% based on the [place].-adapted WHO algorithm), available at http://www.shef.ac.uk/FRAX). Dictated by: Johnnie Alvarado M.D. The radiology attending physician has personally reviewed this study, and had reviewed and/or edited this written report and agrees with it. Electronically signed by: Alek Goins MD, Ph.D Narrative 06/23/2024 10:55 AM CDT BONE DENSITOMETRY OF THE SPINE AND HIP DATE OF STUDY: 06/23/2024 HISTORY: 74-year-old postmenopausal woman with hysterectomy at age 32. She is being treated with no bone mineral density medications. Evaluate bone mineral density. Additional risk factors for fracture: Prolonged glucocorticoid use. FINDINGS (SPINE): The bone mineral density of L1-L4 was assessed by dual-energy x-ray absorptiometry. The average bone mineral density within this region is 1.530 gm/sq-cm. This is 6.8 standard deviations above the mean of the average bone mineral density for age- and gender-matched subjects (the Z-score). It is 4.4 standard deviations above the mean peak bone mineral density in young adults (the T-score). FINDINGS (FEMORAL NECK): The bone mineral density of the left femoral neck was assessed by dual-energy x-ray absorptiometry. The average bone mineral density within the femoral neck region is 0.832 gm/sq-cm. This is 1.9 standard deviations above the mean of the average bone mineral density for age- and gender-matched subjects (the Z-score). It is 0.2 standard deviations below the mean peak bone mineral density in young adults (the T-score). FINDINGS (TOTAL HIP): The bone mineral density of the left hip was assessed by dual-energy x-ray absorptiometry. The average bone mineral density within the total hip region is 1.020 gm/sq-cm. This is 2.4 standard deviations above the mean of the average bone mineral density for age- and gender-matched subjects (the Z-score). It is 0.6 standard deviations above the mean peak bone mineral density in young adults (the T-score). SUMMARY OF CURRENT RESULTS: Region BMD T-score Z-score AP Spine (L1-L4) 1.530 4.4 6.8 Femoral Neck (Left) 0.832 -0.2 1.9 Total Hip (Left) 1.020 0.6 2.4 Procedure Note Alek Mccartney MD PhD - 06/23/2024 BONE DENSITOMETRY OF THE SPINE AND HIP DATE OF STUDY: 06/23/2024 HISTORY: 74-year-old postmenopausal woman with hysterectomy at age 32. She is being treated with no bone mineral density medications. Evaluate bone mineral density. Additional risk factors for fracture: Prolonged glucocorticoid use. FINDINGS (SPINE): The bone mineral density of L1-L4 was assessed by dual-energy x-ray absorptiometry. The average bone mineral density within this region is 1.530 gm/sq-cm. This is 6.8 standard deviations above the mean of the average bone mineral density for age- and gender-matched subjects (the Z-score). It is 4.4 standard deviations above the mean peak bone mineral density in young adults (the T-score). FINDINGS (FEMORAL NECK): The bone mineral density of the left femoral neck was assessed by dual-energy x-ray absorptiometry. The average bone mineral density within the femoral neck region is 0.832 gm/sq-cm. This is 1.9 standard deviations above the mean of the average bone mineral density for age- and gender-matched subjects (the Z-score). It is 0.2 standard deviations below the mean peak bone mineral density in young adults (the T-score). FINDINGS (TOTAL HIP): The bone mineral density of the left hip was assessed by dual-energy x-ray absorptiometry. The average bone mineral density within the total hip region is 1.020 gm/sq-cm. This is 2.4 standard deviations above the mean of the average bone mineral density for age- and gender-matched subjects (the Z-score). It is 0.6 standard deviations above the mean peak bone mineral density in young adults (the T-score). SUMMARY OF CURRENT RESULTS: Region BMD T-score Z-score AP Spine (L1-L4) 1.530 4.4 6.8 Femoral Neck (Left) 0.832 -0.2 1.9 Total Hip (Left) 1.020 0.6 2.4 IMPRESSION: 1. The bone mineral density of the lumbar spine is increased. 2. The bone mineral density of the left femoral neck is normal. 3. The bone mineral density of the left total hip is normal. 4. Overall, the above findings are normal by WHO criteria. 5. Calculation of fracture risk using the FRAX model is not appropriate in certain settings. It was not performed in this patient because the patient met the following condition(s): normal bone density. General comments regarding interpretation of bone density measurements: A) In children, premenopausal woman and males under age 50 not at increased risk for fractures only Z-scores, not T-scores are used to indicate risk. A Z-score above -2.0 is defined as within the expected range for age and Z-score at or less than -2.0 is below the expected range for age. A Z-score below the expected range for age in a patient with recent fractures and/or chronic corticosteroid treatment is consistent with a diagnosis of osteoporosis. B) In post menopausal women and males over 50, comparison of the measured bone mineral density with the average value in young normal subjects (the T-score) has been found to be useful in assessing fracture risk. Fracture risk approximately doubles for each 1.0 standard deviation (SD) in individual's hip or spine bone mineral density is below the average value of young normal subjects. The World Health Organization (WHO) has defined T-scores of -1.0 to -2.5 as diagnostic of low bone mass (OSTEOPENIA), and T-scores of -2.5 or lower to be diagnostic of OSTEOPOROSIS, based on the site of lowest bone density. Note that there will be a change in reporting format and reference databases as patients move from the younger population (group A) to the older population (group B) The National Osteoporosis Foundation (www.nof.org) recommends adequate intake of calcium and vitamin D and regular weight-bearing exercise in all patients. They recommend pharmacologic treatment in postmenopausal women and men age 50 and older presenting with any of the followin) Osteoporosis, after appropriate evaluation to exclude secondary causes. 2) A hip or vertebral (clinical or radiographic) fracture, regardless of the bone density. 3) Low bone mass (Osteopenia) and one or more of: other prior fractures, secondary causes associated with high risk of fracture (such as glucocorticoid use or total immobilization), or computed high risk of fracture (10-yr probability of hip fracture >= 3% or a 10-yr probability of any major osteoporosis-related fracture >= 20% based on the [place].-adapted WHO algorithm), available at http://www.shef.ac.uk/FRAX). Dictated by: Johnnie Alvarado M.D. The radiology attending physician has personally reviewed this study, and had reviewed and/or edited this written report and agrees with it. Electronically signed by: Alek Goins MD, Ph.D Jc Ledesma MD IMG DXA PROCEDURES Final Resu lt * Screening Mammogram 2D Bilateral (12/29/2020) Anatomical Region Laterality Modality Breast Bilateral Mammography Narrative 12/29/2020 Pt had 12-27-20 Historical Provider IMG MAMMO PROCEDURES Cathy l Result * Colonoscopy (01/09/2019) Anatomical Region Laterality Modality Other Narrative 01/09/2019 Pt reported she had with dr underwood in 2019 repeat in 5 years Historical Provider ENDOSCOPY PROCEDURES Cathy l Result from Last 3 Months or Most Recently Relevant to Health Maintenance Insurance [facility] MEDIC[facility] MEDICARE [facility] Address: [address] [address] [place] [address] [facility] Advance Directives For more information, please contact: [phone] * Full Code (Latest Code Status on File) Date Activated Date Inactivated Comments 10/18/2025 5:42 AM 10/19/2025 4:50 AM * Full Code Date Activated Date Inactivated Comments 09/20/2025 5:38 AM 09/21/2025 4:40 AM * Full Code Date Activated Date Inactivated Comments 08/16/2025 6:51 AM 08/17/2025 4:40 AM * Full Code Date Activated Date Inactivated Comments 07/19/2025 6:39 AM 07/20/2025 4:44 AM * Full Code Date Activated Date Inactivated Comments 06/21/2025 5:13 AM 06/22/2025 4:45 AM Care Teams Brand Strategy Manager Relationship Specialty Start Date End Date Jc Ledesma MD PCP - General Internal Medicine 09/10/20 Patric Jaime, DPT [id number] [address] Physical Therapist Physical Therapy 03/19/23
--- NOTE | 2025-10-19 21:43 | ED.HEATRA ---
HPI - Head Injury General Chief complaint: Head Injury Stated complaint: Fall onto table from steps; Head Lac; ETOH Time Seen by Provider: 10/19/25 20:57 History of Present Illness HPI Narrative: 75-year-old female presenting to the emergency department after a ground level fall. Patient states she fell twice today actually. One time was at a restaurant when she tripped over her footing and landed on her head but did not sustain any injuries. Did not lose consciousness. Went home where she was trying to go up the steps and tripped and landed on her left side back. Did not lose consciousness but sustained a laceration. Her called EMS given the 2nd fall. Patient endorses drinking at the restaurant today and family states she was transiently confused but now acting appropriately. Patient has no complaints at this time. She denies any headache, vision changes. Does not feel like she is intoxicated anymore. Denies any chest pain, shortness a breath, nausea, vomiting, fever, chills. She has a small laceration to the back for left head otherwise no injuries. States she has a bad knee that sometimes in [place] her walking but no history of strokes and no anticoagulation use. She is accompanied by family members at bedside. Related Data Home Medications ?Medication ?Instructions ?Recorded ?Confirmed ?Last Taken ?Type escitalopram oxalate 20 mg tablet 20 mg PO DAILY 09/03/22 10/31/23 09/04/23 09:00 History mirtazapine 15 mg tablet 15 mg PO DAILY 04/20/23 10/31/23 Unknown History rosuvastatin 5 mg tablet 5 mg PO DAILY 07/27/23 10/31/23 09/04/23 09:00 History clonazepam 0.5 mg tablet 0.25 mg PO QID 09/04/23 10/31/23 Unknown History clonazepam 0.5 mg tablet 0.5 mg PO HS PRN Anxiety 09/04/23 10/31/23 Unknown History olanzapine 5 mg tablet 5 mg PO BID 09/04/23 10/31/23 09/04/23 09:00 History pantoprazole 40 mg granules 40 mg PO BID 09/04/23 10/31/23 Unknown History delayed-release for susp in packet Allergies Allergy/AdvReac Type Severity Reaction Status Date / Time No Known Allergies Allergy Verified 11/19/23 19:09 Review of Systems Review of Systems: As reviewed above in HPI All systems reviewed & are unremarkable except as noted in HPI and below PMFSH Past Medical History Medical History Anxiety Gastroesophageal reflux Asthma Arthritis Dysphagia Patient lost 80 lb in a year and half after choking food and thereafter she became frightened to eat. She had an extensive workup done at [place], [facility], and [place] and she now has a feeding tube for nutrition and she has gained back some weight. Surgical History Surgical History History of cataract extraction with lens replacement History of percutaneous endoscopic gastrostomy History of colonoscopy with polypectomy History of benign breast biopsy History of section History of hysterectomy Family History Family History Mother No problems noted. Father Colon cancer Social History Social History Social History: Surrogate medical decision maker: Jalen Angela (spouse) or Shalini Barroso (daughter). Code status: Full code. Smoking status: Never smoker Alcohol intake: former Substance use: never Substance use type: does not use Lack of Transportation: No Lack of Food: Never True Current Housing: I Have Housing Concerned About Future Housing: Decline to Answer Difficulty Paying Gas/Electric Bills: Decline to Answer Difficulty Paying for Meds: Decline to Answer Currently Unemployed: Decline to Answer Education: Master's Degree or Higher Difficulty w/ Childcare or Family Care: No Living arrangements: with family Occupation/Education: retired Additional occupation/education comments: Retired teacher. Spiritual care concerns: No Exam Narrative: GENERAL: [Well-appearing, well-nourished, and in no acute distress.] HEAD: Normocephalic, posterior left occipital area of the scalp as a about 2.5 cm laceration that is linear without any significant depth. No active bleeding. Some dried blood around it. Tenderness to palpation. No hematoma formation. No palpable skull defect or crepitus. EYES: [PERRLA and EOMI.] ENT: Nares clear, no rhinorrhea or epistaxis. Mucous membranes moist. NECK: Supple. CHEST: [Clear to auscultation. No respiratory distress.] HEART: [Regular rate and rhythm]. No murmur heard. [Normal peripheral pulses.] ABDOMEN: [Soft, nondistended], [nontender], [No rigidity or guarding] EXTREMITIES: Normal range of motion. [No edema.] SKIN: Warm, dry, no rash. NEURO: No deficits, moving all extremities. Awake alert oriented x4. No ataxia and ambulatory with a steady gait. PSYCH: [Normal mood and affect.] Course Vital Signs Vital signs: Vital Signs Temperature 36.7 C 10/19/25 21:14 Pulse Rate 83 10/19/25 21:14 Respiratory Rate 17 10/19/25 21:14 Blood Pressure 131/63 10/19/25 21:14 Pulse Oximetry 94 10/19/25 21:14 Oxygen Delivery Room Air 10/19/25 21:14 Temperature 36.7 C 10/19/25 21:14 Pulse Rate 83 10/19/25 21:14 Respiratory Rate 17 10/19/25 21:14 Blood Pressure 131/63 10/19/25 21:14 Pulse Oximetry 94 10/19/25 21:14 Oxygen Delivery Room Air 10/19/25 21:14 Procedures Laceration Laceration 1: Date: 10/19/25 Time: 22:27 Site: scalp Side (If applicable): left Size (cm): 2.5 Description: linear and clean Depth: simple, single layer Local Anesthetic: lidocaine 1% (LET gel) and with epi Amount of anesthesia used (mL): 3 Pre-repair: wound explored, irrigated extensively and deep structures intact ====== Skin Level ====== Skin layer closed with: kristi (6 kristi) ====== Subcutaneous Layer ====== ====== Muscle Layer ====== ====== Tendon Layer ====== Dressing: gauze [facility] Narrative Medical decision making narrative: 75-year-old female presenting to the emergency department after a ground level fall. Patient states she fell twice today actually. One time was at a restaurant when she tripped over her footing and landed on her head but did not sustain any injuries. Did not lose consciousness. Went home where she was trying to go up the steps and tripped and landed on her left side back. Did not lose consciousness but sustained a laceration. Her called EMS given the 2nd fall. Patient endorses drinking at the restaurant today and family states she was transiently confused but now acting appropriately. Patient has no complaints at this time. She denies any headache, vision changes. Does not feel like she is intoxicated anymore. Denies any chest pain, shortness a breath, nausea, vomiting, fever, chills. She has a small laceration to the back for left head otherwise no injuries. States she has a bad knee that sometimes in [place] her walking but no history of strokes and no anticoagulation use. She is accompanied by family members at bedside. Normocephalic, posterior left occipital area of the scalp as a about 2.5 cm laceration that is linear without any significant depth. No active bleeding. Some dried blood around it. Tenderness to palpation. No hematoma formation. No palpable skull defect or crepitus. Patient sounds like she had a mechanical fall with some alcohol intoxication. She is answering all my questions appropriately did not lose consciousness. No red flag signs or symptoms on my clinical examination or history. No anticoagulation use. CTs of the head and cervical spine were obtained for the injuries to rule out fracture, brain bleed, subluxation or dislocation. Let gel applied to the topical wound which was closed with kristi. Patient was able ambulate unassisted and has unremarkable normal vital signs and acting appropriately. Family comfortable taking her home tonight. Will follow up with regular PCP and given instructions on staple removal and red flags or emergent concerns for return precautions. Differential Diagnosis Differential Diagnosis: Closed head injury, scalp laceration scalp hematoma, cranial injury, intracranial hemorrhage Imaging Data Attestation: I personally reviewed and interpreted this imaging study as follows: My impression: Impressions Head CT 10/19/25 21:19 IMPRESSION: No acute intracranial hemorrhage or extra axial fluid collections. All CT scans at this facility are performed using low dose modulation techniques as appropriate to perform exam including the following: automated exposure control; use of iterative reconstruction technique; adjustment of the mA and/or kV according to patient size (this includes techniques or standardized protocols for targeted exams where dose is matched to indication/reason for exam). Cervical Spine CT 10/19/25 21:22 IMPRESSION: No acute fracture or subluxation. All CT scans at this facility are performed using low dose modulation techniques as appropriate to perform exam including the following: automated exposure control; adjustment of the mA and/or kV according to patient size (this includes techniques or standardized protocols for targeted exams where does is matched to indication/reason for exam; i.e. extremities or head); use of iterative reconstruction technique). Radiologist's impression: ITS Impressions Head CT 10/19/25 21:19 IMPRESSION: No acute intracranial hemorrhage or extra axial fluid collections. All CT scans at this facility are performed using low dose modulation techniques as appropriate to perform exam including the following: automated exposure control; use of iterative reconstruction technique; adjustment of the mA and/or kV according to patient size (this includes techniques or standardized protocols for targeted exams where dose is matched to indication/reason for exam). Cervical Spine CT 10/19/25 21:22 IMPRESSION: No acute fracture or subluxation. All CT scans at this facility are performed using low dose modulation techniques as appropriate to perform exam including the following: automated exposure control; adjustment of the mA and/or kV according to patient size (this includes techniques or standardized protocols for targeted exams where does is matched to indication/reason for exam; i.e. extremities or head); use of iterative reconstruction technique). Discharge Plan Discharge Clinical Impression: Closed head injury, Laceration of scalp Patient Disposition: Home Condition: Stable Instructions: Antibiotic Form, Head Injury (DC), Staple Care (ED) Additional Instructions: We have placed 6 krist[address] into your scalp. CT scans of the head and neck showed no injuries or any traumatic findings or injury to the brain. Return with any emergent concerns otherwise follow-up with regular doctor. Get the kristi removed in about 10 days and you can get that done at your PCPs office, urgent care, or return to the ER. Return with any emergent concerns at any time. Patient Language: German Prescriptions: No Action escitalopram oxalate 20 mg tablet 20 mg PO DAILY mirtazapine 15 mg tablet 15 mg PO DAILY rosuvastatin 5 mg tablet 5 mg PO DAILY olanzapine 5 mg tablet 5 mg PO BID clonazepam 0.5 mg tablet 0.25 mg PO QID Rx Instructions: Hold in mouth for 3 minutes, swish around, let it dissolve with saliva, spit out after 3 minutes, do no swallow pantoprazole [address] for susp in packet 40 mg PO BID clonazepam 0.5 mg tablet 0.5 mg PO HS PRN (Reason: Anxiety) nystatin 100,000 unit/mL suspension 500,000 unit PO TID 10 Days Qty: 150 0RF Rx Instructions: administer 1/2 of dose in each side of the mouth then gargle and swallow Follow-up/Referrals: Baltazar,Jc Craft MD [Primary Care Provider] Time of Disposition: 22:30
[2025-10-19] MEDS: LIDOCAINE, EPINEPHRINE, TETRACAINE VISCOUS SOLN 3 ML TOPICAL (21:58)
--- NOTE | 2025-10-19 22:34 | PC.NURSE ---
ambulated half way around nurses station. unsdeepti. ed dr guerin.
== END 2025-10-19 23:19 | disposition home or self-care (01) ==
PROVIDERS: Emergency Provider Student in an Organized Health Care Education/Training Program; PCP Internal Medicine
DX: S01.01XA Laceration without foreign body of scalp, initial encounter (principal); F41.9 Anxiety disorder, unspecified; K21.9 Gastro-esophageal reflux disease without esophagitis; J45.909 Unspecified asthma, uncomplicated; M19.90 Unspecified osteoarthritis, unspecified site; R13.10 Dysphagia, unspecified; W10.9XXA Fall (on) (from) unspecified stairs and steps, initial encounter
CPT/HCPCS: 12001; 70450; 72125; 99284